=== PATIENT | female | born 1970 | race Caucasian/White ===

== ENCOUNTER 2017-06-20 11:25 | Emergency (ER) | payer OTHER ==
[~2017-06-20] VITALS: Ht 167.6 cm; Wt 73.5 kg
[~2017-06-20 11:25] MED LIST: ALPRAZOLAM1 M1 PO; AMBIEN CR12.5 MG PO; AMBIEN10 MG PO; AMBIEN5 MG PO; AMITRIPTYLINE H50 MG PO; ASPIRIN81 MG PO; ATORVASTATIN CA20 MG PO; CHANTIX0.5 MG PO; Calcium Carbonate PO; DOK100 MG PO; FLOVENT DISKUS50 MCG INH; Hydrochlorothiazide PO; LASIX20 MG PO; MELOXICAM7.5 MG PO; MOBIC7.5 MG PO; PANTOPRAZOLE SO40 MG PO; PEPCID20 MG; PEPCID20 MG PO; PROAIR HFA INH8.5 GM INH; RANEXA500 MG PO; SENOKOT8.6 MG PO; TUMS300 MG PO; ULTRAM 50MG50 MG PO; XANAX0.5 MG PO; ZOFRAN ODT4 MG PO; ZOFRAN ODT8 MG PO
== END 2017-06-20 12:20 | disposition short-term general hospital (02) ==
LOC: ER 11:25
DX: M54.9 Dorsalgia, unspecified (principal)

== ENCOUNTER 2018-04-04 16:10 | Emergency (ER) | payer OTHER ==
[~2018-04-04] VITALS: Ht 167.6 cm; Wt 70.3 kg
--- OUTSIDE RECORDS SUMMARY | 2018-04-04 16:12 | XMS REPORT ---
Author Author [facility] Address Unknown Phone Unavailable Care Team Providers Care Software Verification Engineer Name Role Phone DR KEMI GUTHRIE Unavailable Unavailable Problems This patient has no known problems. Allergies, Adverse Reactions, Alerts This patient has no known allergies or adverse reactions. Medications This patient has no known medications. Encounters Start Date/Time End Date/Time Encounter Type Admission Type Attending Clinicians Care Facility Care Department Encounter ID 2017-08-01 04:46:00 2017-08-01 07:50:00 Outpatient [facility] [id number]
[2018-04-04] MEDS ORDERED: IBUPROFEN 600 MG TAB PO STA (16:41)
--- NOTE | 2018-04-04 17:16 | Diagnostic Imaging Report ---
PELVIS AP 1-2 VIEWS HISTORY: Fall. Pelvic pain. COMPARISON: None available. FINDINGS: Bones: No acute displaced fracture. Osseous alignment is within normal limits. Joints: The joint spaces are well-maintained. Soft tissues: The soft tissues appear unremarkable. IMPRESSION: No acute radiographic abnormality. Signed by: DR. Willam Rodriguez MD on 04/04/2018 5:13 PM
--- NOTE | 2018-04-04 17:18 | Diagnostic Imaging Report ---
SHOULDER LEFT COMPLETE HISTORY: Fall, left shoulder pain.. COMPARISON: None available. FINDINGS: Internal and external rotation views. Bones: No acute displaced fracture. Osseous alignment is within normal limits. Joints: The joint spaces are well-maintained. Soft tissues: The soft tissues appear unremarkable. IMPRESSION: No acute radiographic abnormality. Signed by: DR. Willam Rodriguez MD on 04/04/2018 5:15 PM
--- NOTE | 2018-04-04 17:19 | Diagnostic Imaging Report ---
WRIST COMPLETE LEFT HISTORY: Fall, left wrist pain. COMPARISON: None available. FINDINGS: AP, lateral, and oblique views. Bones: No acute displaced fracture. Osseous alignment is within normal limits. Joints: The joint spaces are well-maintained. Soft tissues: The soft tissues appear unremarkable. IMPRESSION: No acute radiographic abnormality. Signed by: DR. Willam Rodriguez MD on 04/04/2018 5:16 PM
== END 2018-04-04 18:10 | disposition home or self-care (01) ==
LOC: ER 16:10
DX: S60.212A Contusion of left wrist, initial encounter (principal); S40.012A Contusion of left shoulder, initial encounter; W18.39XA Other fall on same level, initial encounter; Y93.01 Activity, walking, marching and hiking; Y92.008 Other place in unspecified non-institutional (private) residence as the place of occurrence of the external cause; M54.5 Low back pain; G89.29 Other chronic pain; I25.10 Atherosclerotic heart disease of native coronary artery without angina pectoris; K21.9 Gastro-esophageal reflux disease without esophagitis; E78.5 Hyperlipidemia, unspecified
CPT/HCPCS: 72170; 99283

== ENCOUNTER 2020-04-07 04:01 | Emergency (ER) | payer SELFPAY ==
[~2020-04-07] VITALS: Ht 167.6 cm; Wt 70.3 kg
[2020-04-07] MEDS ORDERED: ACETAMINOPHEN 325 MG TAB PO ONE (04:30)
--- NOTE | 2020-04-07 04:40 | Emergency Department Note ---
History of Present Illnes History of Present Illness Chief Complaint: General Medicine Complaints History of Present Illness This is a 49 year old female hx of brain injuries, migraine MCRAE c/o headache, right hip pain after a fall 2 days ago. She stripped and fell Monday, went to [facility] ER , has chest xray and cardiac work up and d/c form there. She came tonight because her head marks got worse., also c/o right hip pain. A table fell onot her head 2 years ago (in [facility]) caused her to become disable since. 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 Any updates have been documented here. Past Medical History Past Medical History: Hypertension, CAD, Seizure Disorder, Migraines, Hyperlipedemia, Chronic Back Pain Other Medical History: gestational DM GERD Anxiety high cholesterol "fluid around heart" Angina Seasonal allergies Past Surgical History: Cholecysctectomy, Hysterectomy, , Back Surgery Other Surgery: C Section Social History Smoking Cessation: Unknown if ever smoked TB Exposure/Symptoms: No Physically hurt or threatened: No Family History Family history of heart diseas: No Other Last Tetanus: Unknown Any Pre-Existing Lines (PICC,: No Review of Systems Review of Systems Constitutional: Reports weakness EENTM: Reports no symptoms Cardiovascular: Reports no symptoms Respiratory: Reports no symptoms Gastrointestinal: Reports no symptoms Genitourinary: Reports no symptoms Musculoskeletal: Reports as per HPI, Reports back pain, Reports muscle pain, Reports other (right himp pain, right knee pain) Integumentary: Reports no symptoms Neurological: Reports as per HPI, Reports headache Psychological: Reports no symptoms Endocrine: Reports no symptoms Hematological/Lymphatic: Reports no symptoms Physical Exam Related Data Allergies: Coded Allergies: Sulfa (Sulfonamide Antibiotics) (Verified Allergy, Intermediate, 07/02/19) metoprolol (Verified Allergy, Intermediate, 07/02/19) Vital signs reviewed: Yes Physical Exam CONSTITUTIONAL Constitutional: Present well-developed HENT HENT: Present normocephalic, Present atraumatic, Present oropharynx clear/moist, Present nose normal HENT L/R: Present left ext ear normal, Present right ext ear normal EYES Eyes: Reports PERRL, Reports conjunctivae normal NECK Neck: Present ROM normal PULMONARY Pulmonary: Present effort normal, Present breath sounds normal CARDIOVASCULAR Cardiovascular: Present regular rhythm, Present heart sounds normal, Present capillary refill normal, Present normal rate GASTROINTESTINAL Abdominal: Present soft, Present nontender, Present bowel sounds normal GENITOURINARY Genitourinary: Present exam deferred SKIN Skin: Present warm, Present dry MUSCULOSKELETAL Musculoskeletal: Present ROM normal, Present tenderness (right hip tender ) NEUROLOGICAL Neurological: Present alert, Present oriented x 3, Present no gross motor or sensory deficits PSYCHOLOGICAL Psychological: Present mood/affect normal, Present judgement normal Results Laboratory Lab results reviewed: Yes Laboratory comments no uti Imaging Imaging results reviewed: Yes Impressions no acute Assessment & Plan Medical Decision Making MDM sprain, fracture, dislocation, DJD Assessment & Plan Final Impression: (1) Acute pain due to trauma (2) Concussion (3) Hip injury Depart Disposition: HOME, SELF-long-term Meds Active Scripts Ondansetron (ZOFRAN ODT) 4 Mg Tab.rapdis, 1 TAB PO Q4-6H PRN, #12 Prov:ELIDA VO MD 03/08/16 Sennosides (SENOKOT) 8.6 Mg Tablet, 8.6 MG PO BID for 30 Days, TAB 2 Refills Prov:ELIDA VO MD 03/08/16 Docusate Sodium (DOK) 100 Mg Tablet, 100 MG PO BID for 30 Days, TAB 2 Refills Prov:ELIDA VO MD 03/08/16 Ondansetron (ZOFRAN ODT) 4 Mg Tab.rapdis, 4 MG PO Q4-6H PRN PRN for NAUSEA, #30 Prov:ELIDA VO MD 03/02/16 Tramadol Hcl* (ULTRAM 50MG*) 50 Mg Tab, 25 MG PO Q6H PRN for PAIN for 14 Days Prov:ELIDA VO MD 03/02/16 Meloxicam* (MOBIC*) 7.5 Mg Tablet, 7.5 MG PO DAILY for 14 Days, TAB Prov:ELIDA VO MD 03/02/16 [Calcium Carbonate] 500 MG CHEW No Conflict Check, 500 MG PO TID for 30 Days, 2 Refills Prov:ELIDA VO MD 03/02/16 Reported Medications Famotidine (PEPCID) 20 Mg Tablet, 20 MG BID, #60 TAB 03/06/16 Alprazolam (ALPRAZOLAM) 1 Mg Tab.rapdis, 1 MG PO TID for ANXIETY 03/06/16 Zolpidem Tartrate (AMBIEN) 5 Mg Tablet, 5 MG PO HS, #30 TAB 02/29/16 Ranolazine (RANEXA) 500 Mg Tabsr, 1000 MG PO BID, #60 TAB 02/29/16 Calcium Carbonate (TUMS) 300 Mg Tab.chew, 500 MG PO TID, #90 01/28/16 Atorvastatin Calcium (ATORVASTATIN CALCIUM) 20 Mg Tablet, 10 MG PO 2100, TAB 01/25/16 Aspirin (ASPIRIN) 81 Mg Tab.chew, 1 TAB PO DAILY 01/21/16 Pantoprazole Sodium* (PROTONIX) 40 Mg Tablet.dr, 40 MG PO DAILY, TAB 01/18/16 STANISLAV RASCON MD Apr 07, 2020 04:40
--- NOTE | 2020-04-07 05:33 | Diagnostic Imaging Report ---
Exam: Head CT without contrast History: Trauma, fall Comparison studies: Prior head CT of 03/06/2016 is unavailable on the PACS for the time of comparison. Technique: Axial images were obtained from the skull base to the vertex. Coronal and sagittal images reconstructed from the axial data. Dose modulation, iterative reconstruction, and/or weight based adjustment of the mA/kV was utilized to reduce the radiation dose to as low as reasonably achievable. Radiation dose: Total DLP: 969 mGy*cm. Estimated effective dose: DLP x 0.015 Intravenous contrast: None Findings: Scalp: No abnormalities. Bones: No fractures, blastic or lytic lesions. Brain sulci: Appropriate for age. Ventricles: Normal in size and configuration. No hydrocephalus. Extra-axial spaces: No masses, no fluid collection. Parenchyma: No mass, acute hemorrhage or acute or chronic cortical insults. A few subtle hypodensities in the supratentorial white matter are nonspecific but are most compatible with chronic microvascular ischemic changes. Sellar/suprasellar region: No abnormalities. Craniocervical junction: Patent foramen magnum. No Chiari one malformation. Middle ear cavities and mastoids: Clear. Included paranasal sinuses: Clear. IMPRESSION: 1. No acute abnormalities. 2. Mild chronic microvascular ischemic changes. Signed by: Dr. Tani Larsen M.D. on 04/07/2020 5:30 AM
--- NOTE | 2020-04-07 05:40 | Diagnostic Imaging Report ---
History: Trauma, fall Comparison studies: None Technique: Axial images were obtained through the cervical region. Coronal and sagittal images reconstructed from the axial data. Dose modulation, iterative reconstruction, and/or weight based adjustment of the mA/kV was utilized to reduce the radiation dose to as low as reasonably achievable. Intravenous contrast: None Findings: Atlantoaxial articulation: Intact. Alignment: Normal lordosis. No scoliosis. Cervicomedullary junction: No abnormalities. The foramen magnum is patent. Soft tissues: No gross acute abnormalities. Vertebrae: No fractures, infection or neoplasm. Degenerative changes: Multilevel anterior marginal osteophytes indent the prevertebral soft tissues, the largest of these is at C5-C6. Multilevel disc degeneration; mild from C2-C3 through C4-C5, moderate at C5-C6 and C6-C7 and mild at C7-T1. Moderate canal stenosis C5-C6 and at C6-C7 due to disc osteophyte complexes. Multilevel uncovertebral and facet arthrosis result in multilevel foraminal stenosis which is moderate on the right and mild left at C4-C5 and severe bilaterally at C5-C6 and at C6-C7. IMPRESSION: 1. No cervical spine fracture or subluxation. 2. Multilevel degenerative changes as described. 3. Ligament, spinal cord and or vascular abnormalities cannot be excluded on the basis of this examination Signed by: Dr. Tani Larsen M.D. on 04/07/2020 5:37 AM
[2020-04-07] MEDS ORDERED: ACETAMINOPHEN 325 MG TAB ONE (05:54)
[2020-04-07] MEDS ORDERED: IBUPROFEN 600 MG TAB ONE (05:54)
--- NOTE | 2020-04-07 06:21 | Diagnostic Imaging Report ---
EXAM: CT Pelvis WITHOUT contrast INDICATION: Fall, trauma COMPARISON: None. TECHNIQUE: Pelvis were scanned utilizing a multidetector helical scanner from the iliac crest to the pubic symphysis without administration of IV contrast. Coronal and sagittal reformations were obtained. Routine protocol was performed. IV CONTRAST: None ORAL CONTRAST: None COMPLICATIONS: None RADIATION DOSE: Total DLP: 419 mGy*cm Estimated effective dose: (DLP x 0.015 x size factor) mSv CTDIvol has been reviewed. It is below the limits set by the Radiation Protocol Committee (RPC). Dose modulation, iterative reconstruction, and/or weight based adjustment of the mA/kV was utilized to reduce the radiation dose to as low as reasonably achievable. FINDINGS: LINES and TUBES: None. GI TRACT: No abnormal distention, wall thickening, or evidence of bowel obstruction. PELVIC ORGANS/BLADDER: Hysterectomy. No adnexal masses. Urinary bladder unremarkable. LYMPH NODES: No lymphadenopathy. VESSELS: Unremarkable. PERITONEUM / RETROPERITONEUM: No free air or fluid. BONES: L5-S1 degenerative disc changes with height loss, posterior disc osteophytes and foraminal stenosis. SOFT TISSUES: Unremarkable. IMPRESSION: No acute traumatic abnormality. There is L5-S1 degenerative disc changes with disc height loss, posterior disc osteophytes and foraminal stenosis. Signed by: Braxton Anaya DO on 04/07/2020 6:18 AM
--- OUTSIDE RECORDS SUMMARY | 2020-04-07 09:35 | XMS REPORT | Clinical Summary ---
Author Author [facility] Organization [facility] Address Unknown Phone Unavailable Care Team Providers Care Equipment Service Associate Name Role Phone Jadiel Flores MD PCP Allergies Comments Active Allergy Reactions Severity Noted Date headache Metoprolol Other (See 08/05/2016 Comments) Sulfa (Sulfonamide 12/14/2018 Antibiotics) Medications End Date Status Medication Sig Dispensed Refills Start Date Active GABAPENTIN ORAL Take by 0 mouth. Active atorvastatin calcium Take by 0 (ATORVASTATIN ORAL) mouth. Active tizanidine HCl Take by 0 (TIZANIDINE ORAL) mouth. Active CLONAZEPAM ORAL Take by 0 mouth. Active sertraline HCl (ZOLOFT Take by 0 ORAL) mouth. 05/09/2019 traMADol (ULTRAM) 50 mg Take 1 tablet 20 tablet 0 tabletIndications: acute (50 mg total) 9 pain by mouth every 6 (six) hours as needed for severe pain for up to 5 days .Acute Pain. 03/03/2020 Discontinued (Patient Discha rge) ibuprofen (ADVIL) 600 MG Take 1 tablet 30 tablet 0 tablet (600 mg 0 total) by mouth every 6 (six) hours as needed for mild pain or moderate pain for up to 30 days. 04/02/2020 ibuprofen (ADVIL) 600 MG Take 1 tablet 20 tablet 0 tablet (600 mg 0 total) by mouth every 6 (six) hours as needed for mild pain or moderate pain for up to 30 days. Active Problems Not on file Encounters Care Team Description Date Type Specialty Ramses Reed MD Contusion of left knee, initial encounte r (Primary Dx); Contusion of right knee, initial encounter; Fall, initial encounter 03/03/2020 Emergency Emergency Medicine Mj Israel DO Fall, initial encounter (Primary Dx); Suspected Covid-19 Virus Infection; Contusion of rib on right side, initial encounter; Sprain of left ankle, unspecified ligament, initial encounter; Strain of left knee, initial encounter 02/02/2020 Emergency Emergency Medicine Travis Mcarthur MD Fall, initial encounter (Primary Dx); Injury of head, initial encounter; Acute pain of right shoulder; Acute pain of left knee; Acute left ankle pain 05/04/2019 Emergency Emergency Medicine after 04/07/2019 Surgical History Surgery Date Site/Laterality Comments HYSTERECTOMY CHOLECYSTECTOMY BACK SURGERY Medical History Medical History Date Comments Neuropathy High cholesterol Depression Myoclonus Social History Date Tobacco Use Types Packs/Day Years Used Current Every Day Smoker 0.25 Smokeless Tobacco: Never Used Drinks/Week oz/Week Comments Alcohol Use Never Alcohol Habits Answer Date Recorded How often do you have a drink containing alcohol? Never 12/14/2018 How many drinks containing alcohol do you have on No t asked a typical day when you are drinking? How often do you have six or more drinks on one Not asked occasion? Sex Assigned at Date Recorded Not on file Last Filed Vital Signs Reading Time Taken Comments Vital Sign 119/73 03/03/2020 9:00 AM CDT Blood Pressure 79 03/03/2020 9:00 AM CDT Pulse 36.7 C (98.1 F) 03/03/2020 8:58 AM CDT Temperature 18 03/03/2020 9:00 AM CDT Respiratory Rate 98% 03/03/2020 9:00 AM CDT Oxygen Saturation - - Inhaled Oxygen Concentration 72.6 kg (160 lb) 03/03/2020 8:58 AM CDT Weight 167.6 cm (5' 6") 03/03/2020 8:58 AM CDT Height 25.82 03/03/2020 8:58 AM CDT Body Mass Index Plan of Treatment Health Maintenance Due Date Last Done Comments CERVICAL CANCER SCREENING 1989 BREAST CANCER SCREENING 2018 COLONOSCOPY SCREENING 2018 SHINGLES VACCINES (#1) 2018 INFLUENZA VACCINE 01/18/2020 Procedures Comments Procedure Name Priority Date/Time Associated Diag nosis XR KNEE 4+ VW LEFT STAT 03/03/2020 9:40 AM CDT XR KNEE 4+ VW RIGHT STAT 03/03/2020 9:39 AM CDT XR KNEE 3 VW LEFT STAT 02/02/2020 6:57 AM CDT XR RIBS W PA CHEST RIGHT STAT 02/02/2020 6:57 AM CDT XR ANKLE 3+ VW LEFT STAT 02/02/2020 6:55 AM CDT COVID-19 QUALITATIVE PCR STAT 02/02/2020 5:[address] CERVICAL SPINE WO STAT 05/04/2019 CONTRAST 8:[address] HEAD WO CONTRAST STAT 05/04/2019 8:53 AM BAR TACKER XR KNEE 4+ VW LEFT STAT 05/04/2019 8:29 AM BAR TACKER XR TIBIA FIBULA 2 VW LEFT STAT 05/04/2019 7:29 AM BAR TACKER XR ANKLE 3+ VW LEFT STAT 05/04/2019 7:27 AM BAR TACKER XR SHOULDER 2+ VW RIGHT STAT 05/04/2019 7:27 AM BAR TACKER after 04/07/2019 Results * XR Knee 4+ Vw Left (03/03/2020 9:40 AM CDT) Only the most recent of 2 results within the time period is included. Specimen Narrative Performed At PROCEDURE: XR KNEE 4 VW LEFT [facility] CLINICAL HISTORY: fall COMPARISON: None. TECHNIQUE: Left knee, THREE views were obtained . FINDINGS: No fracture, dislocation, bone destruct ion, or periosteal reaction is demonstrated of the bones about the kne e. If the patient's symptoms persist or de teriorate, a follow-up radiograph in 10 days time is recommended, if clinically indicated. IMPRESSION: 1. No acute fracture or subluxation. 2. There is no acute bony abnormality. [id number] Procedure Note Hm Interface, Radiology Results Incoming - 03/03/2020 9:45 AM CDT PROCEDURE: XR KNEE 4 VW LEFT CLINICAL HISTORY: fall COMPARISON: None. TECHNIQUE: Left knee, THREE views were obtained. FINDINGS: No fracture, dislocation, bone destruction, or periosteal reaction is demonstrated of the bones about the knee. If the patient's symptoms persist or deteriorate, a follow-up radiograph in 10 days time is recommended, if clinically indicated. IMPRESSION: 1. No acute fracture or subluxation. 2. There is no acute bony abnormality. [id number] Performing Organization Address [facility] Code P michelle Number [facility] [address] [place] [address] * XR Knee 4+ Vw Right (03/03/2020 9:39 AM CDT) Specimen Narrative Performed At PROCEDURE: XR KNEE 4 VW RIGHT [facility] CLINICAL HISTORY: fall COMPARISON: None. TECHNIQUE: Right knee, THREE views were obtained . FINDINGS: No fracture, dislocation, bone destruct ion, or periosteal reaction is demonstrated of the bones about the kne e. Small osteophytes are seen along the florez perior aspect of the patella. If the patient's symptoms persist or de teriorate, a follow-up radiograph in 10 days time is recommended, if clinically indicated. IMPRESSION: 1. No acute fracture or subluxation. 2. There are minimal changes of osteoar thritis. [id number] Procedure Note Interface, Radiology Results Incoming - 03/03/2020 9:44 AM CDT PROCEDURE: XR KNEE 4 VW RIGHT CLINICAL HISTORY: fall COMPARISON: None. TECHNIQUE: Right knee, THREE views were obtained. FINDINGS: No fracture, dislocation, bone destruction, or periosteal reaction is demonstrated of the bones about the knee. Small osteophytes are seen along the superior aspect of the patella. If the patient's symptoms persist or deteriorate, a follow-up radiograph in 10 days time is recommended, if clinically indicated. IMPRESSION: 1. No acute fracture or subluxation. 2. There are minimal changes of osteoart hritis. [id number] Performing Organization Address [facility] Code P michelle Number [facility] [address] [place] [address] * XR Knee 3 Vw Left (02/02/2020 6:57 AM CDT) Specimen Narrative Performed At EXAMINATION: XR KNEE 3 VW LEFT [facility] CLINICAL HISTORY: Knee pain initial exam COMPARISON: None. IMPRESSION: 1.There is no evidence of left knee fra cture, dislocation, or joint effusion. Bone mineralization is normal. [facility] Procedure Note Interface, Radiology Results Incoming - 02/02/2020 7:01 AM CDT EXAMINATION: XR KNEE 3 VW LEFT CLINICAL HISTORY: Knee pain initial exam COMPARISON: None. IMPRESSION: 1.There is no evidence of left knee frac ture, dislocation, or joint effusion. Bone mineralization is normal. [facility] Organization Address [facility] P michelle Number [facility] [address] [place] [address] * XR Ribs W Pa Chest Right (02/02/2020 6:57 AM CDT) Specimen Narrative Performed At EXAMINATION: XR RIBS W PA CHEST RIGHT [facility] CLINICAL HISTORY: Rib pain fx suspe cted TECHNIQUE:Rib series COMPARISON: April 07, 2005 IMPRESSION: 1.Healed fractures with periosteal reac tion and callus formation involving the fifth sixth seventh and eighth right po sterior lateral ribs. 2.Lungs are clear. Heart size is normal .. 3.No pneumothorax. 4.Cholecystectomy. [facility] Procedure Note Interface, Radiology Results Incoming - 02/02/2020 7:03 AM CDT EXAMINATION: XR RIBS W PA CHEST RIGHT CLINICAL HISTORY: Rib pain fx suspected TECHNIQUE:Rib series COMPARISON: April 07, 2005 IMPRESSION: 1.Healed fractures with periosteal react ion and callus formation involving the fifth sixth seventh and eighth right posterior lateral ribs. 2.Lungs are clear. Heart size is normal. . 3.No pneumothorax. 4.Cholecystectomy. [facility] Organization Address [facility] P michelle Number [facility] [address] [place] [address] * XR Ankle 3+ Vw Left (02/02/2020 6:55 AM CDT) Only the most recent of 2 results within the time period is included. Specimen Narrative Performed At EXAMINATION: XR ANKLE 3 VW LEFT [facility] CLINICAL HISTORY: Ankle pain initia l exam COMPARISON: Left ankle radiographs IMPRESSION: There is no evidence of acute left ankl e fracture or dislocation. Mild widening of the medial clear space which may be seen with ligamentous injury. [id number] Procedure Note Interface, Radiology Results Incoming - 02/02/2020 7:01 AM CDT EXAMINATION: XR ANKLE 3 VW LEFT CLINICAL HISTORY: Ankle pain initial exam COMPARISON: Left ankle radiographs 05/04/2019 IMPRESSION: There is no evidence of acute left ankle fracture or dislocation. Mild widening of the medial clear space which may be seen with ligamentous injury. [id number] Performing Organization Address City/State/ZIP Code P michelle Number [facility] [address] [place] [address] * COVID-19 qualitative PCR (02/02/2020 5:05 AM CDT) Interpretation Negative results do not NDIAYE preclude 2019-nCoV infection [facility] and should not be used as the HOSPITAL sole basis for treatment or other patient management decisions. Negative results must be combined with clinical observations, patient history, and epidemiological information. COVID-19 Not-Detected Not-Detected [facility] qualitative PCR [facility] result [facility] COVID-19 See link below for PDF Lab [facility] qualitative PCR ReportComment: Case Number: [id number] [facility] Specimen Nasopharyngeal swab Performing Organization Address City/[facility]/ZIP Code P michelle Number [facility] DEPARTMENT OF [address] [place] [address] PATHOLOGY AND GENOMIC MEDICINE [facility] [address] [place] [address] [facility] * CT Cervical Spine Wo Contrast (05/04/2019 8:53 AM BAR TACKER) Specimen Narrative Performed At EXAMINATION: CT CERVICAL SPINE WO CONTRAST [facility] CLINICAL HISTORY: head trauma with midl ine neck tenderness COMPARISON: None TECHNIQUE: Axial noncontrast enhanced i mages of the cervical spine were obtained with coronal and sagittal reconstructed algorithms. CT imaging was performed with iterative reconstruction technique and/or automated exposure control to reduce radiation dose. FINDINGS: No fracture identified. Craniocervical junction is intact. Alignment is within normal limits. No suspicious osseous le paulina. No prevertebral edema or collection identified. There is no visualized mass lesion. Lung apices show no discrete lesions. Axial images through the disc spaces de monstrate the following: C1-C2: There is narrowing of the atlant oaxial interval with spurring. There is no significant stenosis. C2-C3: No significant posterior disc di sease, spinal canal or neural foraminal stenosis. C3-C4: No significant posterior disc di sease, spinal canal or neural foraminal stenosis. C4-C5: There is posterior spondylosis w ith minimal canal narrowing. There is moderate right and mild to moderate lef t foraminal narrowing. C5-C6: There is loss of disc height wit h posterior spondylosis and posterior protrusion results in moderate canal st enosis. Uncovertebral arthrosis and facet disease a results in severe bilateral f oraminal narrowing. Correlate for C6 radiculopathies. C6-C7: There is loss of disc height wit h posterior spondylosis and moderate canal narrowing. There is severe left a nd moderate severe right foraminal stenosis. C7-T1: No significant posterior disc di sease, spinal canal or neural foraminal stenosis. IMPRESSION: There is spondylosis with significant c anal and foraminal stenosis at C5-6 and C6-7 as detailed above. Correlate for a ssociated radiculopathies. There is no acute osseous abnormality. [facility]-[id number] Procedure Note [facility], Radiology Results Incoming - 05/04/2019 9:11 AM BAR TACKER EXAMINATION: CT CERVICAL SPINE WO CONTRAST CLINICAL HISTORY: head trauma with midline neck tenderness COMPARISON: None TECHNIQUE: Axial noncontrast enhanced images of the cervical spine were obtained with coronal and sagittal reconstructed algorithms. CT imaging was performed with iterative reconstruction technique and/or automated exposure control to reduce radiation dose. FINDINGS: No fracture identified. Craniocervical junction is intact. Alignment is within normal limits. No suspicious osseous lesion. No prevertebral edema or collection identified. There is no visualized mass lesion. Lung apices show no discrete lesions. Axial images through the disc spaces demonstrate the following: C1-C2: There is narrowing of the atlantoaxial interval with spurring. There is no significant stenosis. C2-C3: No significant posterior disc disease, spinal canal or neural foraminal stenosis. C3-C4: No significant posterior disc disease, spinal canal or neural foraminal stenosis. C4-C5: There is posterior spondylosis with minimal canal narrowing. There is moderate right and mild to moderate left foraminal narrowing. C5-C6: There is loss of disc height with posterior spondylosis and posterior protrusion results in moderate canal stenosis. Uncovertebral arthrosis and facet disease a results in severe bilateral foraminal narrowing. Correlate for C6 radiculopathies. C6-C7: There is loss of disc height with posterior spondylosis and moderate canal narrowing. There is severe left and moderate severe right foraminal stenosis. C7-T1: No significant posterior disc disease, spinal canal or neural foraminal stenosis. IMPRESSION: There is spondylosis with significant canal and foraminal stenosis at C5-6 and C6-7 as detailed above. Correlate for associated radiculopathies. There is no acute osseous abnormality. [facility]-[id number] Performing Organization Address City/State/ZIP Code P michelle Number [facility] [address] [place] [address] * CT Head Wo Contrast (05/04/2019 8:53 AM BAR TACKER) Specimen Narrative Performed At EXAMINATION: CT HEAD WO CONTRAST [facility] CLINICAL HISTORY: head trauma from fall COMPARISON: CT brain dated December 14 019 TECHNIQUE: Noncontrast enhanced images of the brain were obtained from the skull base to the vertex. Both soft tissue an d bone reconstruction algorithms were performed. CT imaging was performed w [facility] iterative reconstruction technique and/or automated exposure control to reduce radiation do se. FINDINGS: The brain parenchyma has no acute lesio n. The flores-white matter differentiation is preserved. No evidence of acute intr a or extra-axial hemorrhage, mass, mass effect or acute territorial infarction. There is no acute hydrocephalus. Basal cisterns are patent. There are atherosclerotic calcification s in the carotid siphons and vertebral arteries. Sulci and ventricles are prom inent from age-related volume loss. There are some lucencies in the white matter from chronic small vessel changes which are similar to the prior exam. No acute soft tissue hematoma or lacera tion. Paranasal sinuses shows no acute air-fl uid levels. Mastoid air cells are clear. No skull fractures or aggressive bony lesions. IMPRESSION: There are involutional changes as detai led above with no acute intracranial abnormality. No change from prior exam. [facility]-[id number] Procedure Note Interface, Radiology Results Incoming - 05/04/2019 9:06 AM BAR TACKER EXAMINATION: CT HEAD WO CONTRAST CLINICAL HISTORY: head trauma from fall COMPARISON: CT brain dated December 14, 2018 TECHNIQUE: Noncontrast enhanced images of the brain were obtained from the skull base to the vertex. Both soft tissue and bone reconstruction algorithms were performed. CT imaging was performed with iterative reconstruction technique and/or automated exposure control to reduce radiation dose. FINDINGS: The brain parenchyma has no acute lesion. The flores-white matter differentiation is preserved. No evidence of acute intra or extra-axial hemorrhage, mass, mass effect or acute territorial infarction. There is no acute hydrocephalus. Basal cisterns are patent. There are atherosclerotic calcifications in the carotid siphons and vertebral arteries. Sulci and ventricles are prominent from age-related volume loss. There are some lucencies in the white matter from chronic small vessel changes which are similar to the prior exam. No acute soft tissue hematoma or laceration. Paranasal sinuses shows no acute air-fluid levels. Mastoid air cells are clear. No skull fractures or aggressive bony lesions. IMPRESSION: There are involutional changes as detailed above with no acute intracranial abnormality. No change from prior exam. [facility]-[id number] Performing Organization Address [facility]/ZIP Code P michelle Number [facility] [address] [place] [address] * XR Tibia Fibula 2 Vw Left (05/04/2019 7:29 AM BAR TACKER) Specimen Narrative Performed At EXAMINATION: XR TIBIA FIBULA 2 VW LEFT [facility] CLINICAL HISTORY: Lower leg trauma fx suspected initial exam TECHNIQUE: 2 views of left lower l eg obtained. COMPARISON: None. IMPRESSION: No acute fracture or malalignment ident ified. [facility]-[id number] Procedure Note Interface, Radiology Results Incoming - 05/04/2019 7:35 AM BAR TACKER EXAMINATION: XR TIBIA FIBULA 2 VW LEFT CLINICAL HISTORY: Lower leg trauma fx suspected initial exam TECHNIQUE: 2 views of left lower leg obtained. COMPARISON: None. IMPRESSION: No acute fracture or malalignment identified. [id number] Performing Organization Address [facility] Code P michelle Number [facility] [address] [place] [address] * XR Shoulder 2+ Vw Right (05/04/2019 7:27 AM BAR TACKER) Specimen Narrative Performed At EXAMINATION: XR SHOULDER 2 VW RIGHT [facility] CLINICAL HISTORY: Shoulder pain ini tial exam COMPARISON: None. IMPRESSION: 1.There is no evidence of acute right s houlder fracture or dislocation. 2.The glenohumeral joint space is prese rved. 3.The soft tissues are unremarkable. [facility]-[id number] Dictated and approved by radiology resi dent/fellow: Alex Rogers M.D. I, Tani Hightower MD, personally reviewed the images and resident's/fellow's findings and agree with the final repor t. Procedure Note Interface, Radiology Results Incoming - 05/04/2019 7:40 AM BAR TACKER EXAMINATION: XR SHOULDER 2 VW RIGHT CLINICAL HISTORY: Shoulder pain initial exam COMPARISON: None. IMPRESSION: 1.There is no evidence of acute right sh oulder fracture or dislocation. 2.The glenohumeral joint space is preser brock. 3.The soft tissues are unremarkable. [facility]-[id number] Dictated and approved by residential mental health worker/fellow: Alex Rogers M.D. I, Tani Hightower MD, personally reviewed the images and resident's/fellow's findings and agree with the final report. 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
--- OUTSIDE RECORDS SUMMARY | 2020-04-07 09:35 | XMS REPORT | Clinical Summary ---
Author Author [facility] Organization [facility] Address Unknown Phone Unavailable Care Team Providers Care Merchandising Lead Name Role Phone Jadiel Flores MD PCP Allergies Comments Active Allergy Reactions Severity Noted Date headache Metoprolol Other 08/05/2016 Sulfa (Sulfonamide Medium 09/23/2014 Antibiotics) Sulfur Itching 06/25/2018 Medications End Date Status Medication Sig Dispensed Refills Start Date Active [place] Disabled Person Temporary 1 Each 0 PlacardIndications: disability. 9 Chronic post-traumatic headache, not intractable, Weakness Active Miscellaneous Medical by 1 Each 0 04/19 Supply MiscIndications: Misc.(Non-Guillermo 9 Pain of joint of left g; Combo ankle and foot Route) route Boot for ambulation and coordination left foot. Active atorvastatin (LIPITOR) 40 Take 1 tablet 90 tablet 3 mg tabletIndications: by mouth at 9 Coronary artery disease bedtime involving flandreau coronary nightly. artery of flandreau heart without angina pectoris Active prazosin (MINIPRESS) 1 mg Take 1 30 capsule 2 capsuleIndications: PTSD capsule by 9 (post-traumatic stress mouth at disorder) bedtime nightly. Active amitriptyline (ELAVIL) 25 Take 3 270 tablet 3 mg tabletIndications: tablets by 9 Headaches due to old head mouth at injury, Cervical bedtime radiculopathy nightly. Active cetirizine (ZYRTEC) 10 mg Take 1 tablet 30 tablet 2 tabletIndications: by mouth 9 Allergic rhinitis due to daily. pollen, unspecified seasonality Active acetaminophen (TYLENOL) Take 2 30 tablet 0 500 mg tabletIndications: tablets by 0 Fall mouth every 6 hours as needed for Pain. Active ibuprofen (MOTRIN) 600 mg Take 1 tablet 30 tablet 0 tabletIndications: Fall by mouth 0 every 8 hours as needed for Pain. Additional Information Patient not taking. Reported on 08/06/2019 2:19 PM Active Miscellaneous Medical by 1 Each 0 06/20 Supply MiscIndications: Misc.(Non-Guillermo 0 Fall g; Combo Route) route Walker for ambulation. Active Miscellaneous Medical by 1 Each 0 06/20 Supply MiscIndications: Misc.(Non-Guillermo 0 Fall g; Combo Route) route Oxygen tank at 2 liters with supplies to keep sats above 90 percent. Active naproxen (NAPROSYN) 500 Take 1 tablet 30 tablet 0 mg tabletIndications: Rib by mouth 0 pain every 12 hours. Active sertraline (ZOLOFT) 50 mg Take 1 tablet 30 tablet 2 tabletIndications: PTSD by mouth 0 (post-traumatic stress daily. disorder), MDD (major depressive disorder), recurrent severe, without psychosis Active traMADoL (ULTRAM) 50 mg Take 2 60 tablet 1 tabletIndications: Fall tablets by 0 mouth 3 times daily. Active mometasone (NASONEX) 50 1 [place] by 17 g 1 mcg/actuation nasal each nostril 0 sprayIndications: route daily. Allergic rhinitis due to pollen, unspecified seasonality Active amitriptyline (ELAVIL) 25 Take 3 90 tablet 4 mg tabletIndications: tablets by 0 Migraines mouth at bedtime nightly. Active SUMAtriptan (IMITREX) 50 Take 1 tablet 9 tablet 0 mg tabletIndications: by mouth at 0 Migraine without status onset of migrainosus, not headache. intractable, unspecified Repeat after migraine type 2 hours if needed. Maximum 200mg/24 hours.. Active gabapentin (NEURONTIN) Take 1 tablet 90 tablet 4 0 800 mg tabletIndications: by mouth 3 0 Migraines times daily. Active traZODone (DESYREL) 100 Take 1 tablet 30 tablet 1 mg tabletIndications: by mouth at 0 Insomnia due to medical bedtime condition nightly. Active clonazePAM (KLONOPIN) 1 Take 1 tablet 60 tablet 1 mg tabletIndications: by mouth 2 0 Myoclonus times daily as needed (for myoclonus). Active traMADoL (ULTRAM) 50 mg Take 1 tablet 60 tablet 0 tabletIndications: by mouth 2 0 Chronic midline low back times daily pain, unspecified whether as needed for sciatica present Pain. 05/01/2020 Active tiZANidine (ZANAFLEX) 4 Take 1 tablet 60 tablet 1 mg tabletIndications: by mouth 2 0 Spasm of muscle times daily as needed for up to 30 days for Muscle Spasms. 04/07/2020 Active predniSONE (DELTASONE) 20 Take 1 tablet 5 tablet 0 mg tabletIndications: by mouth 0 Viral infection daily for 5 days. 07/05/2019 Discontinued (Duplicate Orde r) [place] Disabled Person Permanent 1 Each 0 09/18 PlacardIndications: disability. 9 Chronic midline thoracic back pain 2019 Discontinued (Reorder) sertraline (ZOLOFT) 50 mg Take 1/2 tab 30 tablet 2 tabletIndications: PTSD by mouth 9 (post-traumatic stress daily x one disorder), MDD (major week then one depressive disorder), tab daily. recurrent severe, without psychosis 2019 Discontinued (Reorder) prazosin (MINIPRESS) 1 mg Take 1 30 capsule 2 capsuleIndications: PTSD capsule by 9 (post-traumatic stress mouth at disorder) bedtime nightly. 07/12/2019 Discontinued (Reorder) clonazePAM (KLONOPIN) 1 Take 1 tablet 60 tablet 3 mg tabletIndications: by mouth 3 9 Myoclonus times daily as needed for Anxiety. 2019 Discontinued (Reorder) clonazePAM (KLONOPIN) 1 Take 1 tablet 90 tablet 1 mg tabletIndications: by mouth 3 9 Myoclonus times daily as needed for Anxiety. 04/26/2019 Discontinued (Reorder) SUMAtriptan (IMITREX) 50 Take 1 tablet 9 tablet 0 mg tabletIndications: by mouth at 9 Migraine without status onset of migrainosus, not headache. intractable, unspecified Repeat after migraine type 2 hours if needed. Maximum 200mg/24 hours.. 2019 Discontinued (Reorder) atorvastatin (LIPITOR) 40 Take 1 tablet 90 tablet 3 mg tabletIndications: by mouth at 9 Coronary artery disease bedtime involving flandreau coronary nightly. artery of flandreau heart without angina pectoris 2019 Discontinued (Reorder) amitriptyline (ELAVIL) 25 Take 2 60 tablet 1 mg tabletIndications: tablets by 9 Migraine without status mouth at migrainosus, not bedtime intractable, unspecified nightly. migraine type 2019 Discontinued (Reorder) gabapentin (NEURONTIN) Take 1 tablet 90 tablet 3 1 800 mg tabletIndications: by mouth 3 9 Myoclonus times daily for 90 days. 2019 Discontinued (Reorder) tiZANidine (ZANAFLEX) 4 Take 1 tablet 90 tablet 1 mg tabletIndications: by mouth 3 9 Chronic midline thoracic times daily back pain for 30 days. 2019 Discontinued (Reorder) traMADol (ULTRAM) 50 mg Take 1 tablet 90 tablet 2 tabletIndications: by mouth 3 9 Chronic midline thoracic times daily back pain as needed for up to 30 days for Pain. 2019 Discontinued (Reorder) SUMAtriptan (IMITREX) 50 Take 1 tablet 9 tablet 0 mg tabletIndications: by mouth at 9 Migraine without status onset of migrainosus, not headache. intractable, unspecified Repeat after migraine type 2 hours if needed. Maximum 200mg/24 hours.. 05/13/2019 Discontinued (Dose adjustmen t) amitriptyline (ELAVIL) 25 Take 2 60 tablet 1 mg tabletIndications: tablets by 9 Migraine without status mouth at migrainosus, not bedtime intractable, unspecified nightly. migraine type 07/05/2019 Discontinued (Duplicate Orde r) clonazePAM (KLONOPIN) 1 Take 1 tablet 90 tablet 1 mg tabletIndications: by mouth 3 9 Myoclonus times daily as needed for Anxiety. 08/04/2019 gabapentin (NEURONTIN) Take 1 tablet 90 tablet 3 1 800 mg tabletIndications: by mouth 3 9 Myoclonus times daily for 90 days. 08/06/2019 Discontinued (Reorder) sertraline (ZOLOFT) 50 mg Take 1/2 tab 30 tablet 2 tabletIndications: PTSD by mouth 9 (post-traumatic stress daily for 1 disorder), MDD (major week AND THEN depressive disorder), take 1 tablet recurrent severe, without daily psychosis thereafter. 05/20/2019 Discontinued (Reorder) SUMAtriptan (IMITREX) 50 Take 1 tablet 9 tablet 0 mg tabletIndications: by mouth at 9 Migraine without status onset of migrainosus, not headache. intractable, unspecified Repeat after migraine type 2 hours if needed. Maximum 200mg/24 hours.. 07/06/2019 Discontinued (Reorder) tiZANidine (ZANAFLEX) 4 Take 1 tablet 90 tablet 1 mg tabletIndications: by mouth 3 9 Chronic midline thoracic times daily back pain for 30 days. 07/05/2019 Discontinued (Patient Dischswati rge) traMADol (ULTRAM) 50 mg Take 1 tablet 90 tablet 2 tabletIndications: by mouth 3 9 Chronic midline thoracic times daily back pain as needed for up to 30 days for Pain. 05/20/2019 Discontinued amitriptyline (ELAVIL) 75 Take 1 tablet 30 tablet 5 mg tabletIndications: by mouth at 9 Migraines bedtime nightly for 180 days. 05/20/2019 Discontinued (Reorder) amitriptyline (ELAVIL) 75 Take 1 tablet 30 tablet 5 mg tabletIndications: by mouth at 9 Migraines bedtime nightly for 180 days. 07/10/2019 Discontinued (Reorder) SUMAtriptan (IMITREX) 50 Take 1 tablet 9 tablet 0 mg tabletIndications: by mouth at 9 Migraine without status onset of migrainosus, not headache. intractable, unspecified Repeat after migraine type 2 hours if needed. Maximum 200mg/24 hours.. 09/26/2019 Discontinued (Reorder) mometasone (NASONEX) 50 1 [place] by 17 g 1 mcg/actuation nasal each nostril 9 sprayIndications: route daily. Allergic rhinitis due to pollen, unspecified seasonality 07/05/2019 Discontinued (Patient Dischswati rge) oseltamivir (TAMIFLU) 75 Take 1 10 capsule 0 0 mg capsuleIndications: capsule by 0 Influenza mouth 2 times daily for 5 days. 07/12/2019 Discontinued (Reorder) traMADol (ULTRAM) 50 mg Take 2 30 tablet 0 tabletIndications: Fall tablets by 0 mouth every 6 hours as needed for Pain. 07/12/2019 lidocaine (LIDODERM) 5 % Apply 1 Patch 7 Patch 0 patchIndications: Fall to skin as 0 directed every 24 hours for 7 days Leave patch(es) on for up to 12 hours, then 12 hours off.. 08/04/2019 docusate sodium (COLACE) Take 1 10 capsule 0 0 100 mg capsule by 0 capsuleIndications: Fall mouth 2 times daily for 30 days. 09/04/2019 Discontinued (Reorder) tiZANidine (ZANAFLEX) 4 Take 1 tablet 90 tablet 1 mg tabletIndications: by mouth 3 0 Chronic midline thoracic times daily back pain for 30 days. 09/04/2019 Discontinued (Reorder) SUMAtriptan (IMITREX) 50 Take 1 tablet 9 tablet 0 mg tabletIndications: by mouth at 0 Migraine without status onset of migrainosus, not headache. intractable, unspecified Repeat after migraine type 2 hours if needed. Maximum 200mg/24 hours.. 09/04/2019 Discontinued (Reorder) traMADol (ULTRAM) 50 mg Take 2 60 tablet 1 tabletIndications: Fall tablets by 0 mouth 3 times daily. 07/12/2019 Discontinued (Reorder) clonazePAM (KLONOPIN) 1 Take 1 tablet 60 tablet 3 mg tabletIndications: by mouth 3 0 Myoclonus times daily as needed for Anxiety. 10/28/2019 Discontinued clonazePAM (KLONOPIN) 1 Take 1 tablet 60 tablet 3 mg tabletIndications: by mouth 3 0 Myoclonus times daily as needed (for myoclonus). 01/19/2020 Discontinued (Reorder) gabapentin (NEURONTIN) Take 1 tablet 90 tablet 4 0 800 mg tabletIndications: by mouth 3 0 Migraines times daily. 11/15/2019 Discontinued (Reorder) amitriptyline (ELAVIL) 25 Take 3 90 tablet 4 mg tabletIndications: tablets by 0 Migraines mouth at bedtime nightly. 01/20/2020 Discontinued (Error) acetaminophen-codeine Take 1 tablet 12 tablet 0 (TYLENOL/CODEINE #3) by mouth 0 300-30 mg per every 4 hours tabletIndications: Rib as needed for pain Pain. 12/08/2019 tiZANidine (ZANAFLEX) 4 Take 1 tablet 90 tablet 1 mg tabletIndications: by mouth 3 0 Chronic midline thoracic times daily back pain for 30 days. 10/30/2019 Discontinued (Reorder) SUMAtriptan (IMITREX) 50 Take 1 tablet 9 tablet 0 mg tabletIndications: by mouth at 0 Migraine without status onset of migrainosus, not headache. intractable, unspecified Repeat after migraine type 2 hours if needed. Maximum 200mg/24 hours.. 11/06/2019 Discontinued (Reorder) traMADoL (ULTRAM) 50 mg Take 2 40 tablet 0 tabletIndications: tablets by 0 Chronic midline low back mouth 2 times pain, unspecified whether daily as sciatica present needed for Pain. 11/06/2019 Discontinued (Reorder) tiZANidine (ZANAFLEX) 4 Take 1 tablet 30 tablet 0 mg tabletIndications: by mouth 0 Chronic midline low back every 6 hours pain, unspecified whether as needed for sciatica present up to 10 days for Muscle Spasms. 11/06/2019 Discontinued (Reorder) clonazePAM (KLONOPIN) 1 Take 1 tablet 60 tablet 3 mg tabletIndications: by mouth 3 0 Myoclonus times daily as needed (for myoclonus). 12/10/2019 Discontinued (Reorder) SUMAtriptan (IMITREX) 50 Take 1 tablet 9 tablet 0 mg tabletIndications: by mouth at 0 Migraine without status onset of migrainosus, not headache. intractable, unspecified Repeat after migraine type 2 hours if needed. Maximum 200mg/24 hours.. 12/11/2019 Discontinued (Reorder) tiZANidine (ZANAFLEX) 4 Take 1 tablet 90 tablet 0 mg tabletIndications: by mouth 2 0 Chronic midline low back times daily pain, unspecified whether as needed for sciatica present up to 10 days for Muscle Spasms. 11/29/2019 Discontinued traMADoL (ULTRAM) 50 mg Take 2 90 tablet 0 tabletIndications: tablets by 0 Chronic midline low back mouth 2 times pain, unspecified whether daily as sciatica present needed for Pain. 01/19/2020 Discontinued (Reorder) clonazePAM (KLONOPIN) 1 Take 1 tablet 90 tablet 1 mg tabletIndications: by mouth 3 0 Myoclonus times daily as needed (for myoclonus). 12/11/2019 Discontinued (Reorder) traMADoL (ULTRAM) 50 mg Take 2 90 tablet 0 tabletIndications: tablets by 0 Chronic midline low back mouth 2 times pain, unspecified whether daily as sciatica present needed for Pain. 12/21/2019 tiZANidine (ZANAFLEX) 4 Take 1 tablet 90 tablet 0 mg tabletIndications: by mouth 2 0 Chronic midline low back times daily pain, unspecified whether as needed for sciatica present up to 10 days for Muscle Spasms. 01/19/2020 Discontinued (Reorder) traMADoL (ULTRAM) 50 mg Take 2 90 tablet 0 tabletIndications: tablets by 0 Chronic midline low back mouth 2 times pain, unspecified whether daily as sciatica present needed for Pain. 12/23/2019 doxycycline monohydrate Take 1 20 capsule 0 (MONODOX) 100 mg capsule by 0 capsuleIndications: Acute mouth 2 times upper respiratory daily for 10 infection days. 01/02/2020 Discontinued (Reorder) traZODone (DESYREL) 100 Take 1 tablet 30 tablet 1 mg tabletIndications: by mouth at 0 Insomnia due to medical bedtime condition nightly. 02/26/2020 Discontinued (Reorder) traZODone (DESYREL) 100 Take 1 tablet 30 tablet 1 mg tabletIndications: by mouth at 0 Insomnia due to medical bedtime condition nightly. 03/16/2020 Discontinued (Reorder) clonazePAM (KLONOPIN) 1 Take 1 tablet 60 tablet 1 mg tabletIndications: by mouth 2 0 Myoclonus times daily as needed (for myoclonus). 02/12/2020 Discontinued (Reorder) traMADoL (ULTRAM) 50 mg Take 1 tablet 60 tablet 0 tabletIndications: by mouth 2 0 Chronic midline low back times daily pain, unspecified whether as needed for sciatica present Pain. 02/08/2020 tiZANidine (ZANAFLEX) 4 Take 1 tablet 30 tablet 1 mg tabletIndications: by mouth 3 0 Spasm of muscle times daily for 10 days. 02/12/2020 Discontinued (Reorder) benzonatate (TESSALON Take 1 20 capsule 0 01/17 PERLES) 100 mg capsule by 0 capsuleIndications: Cough mouth 3 times daily as needed for up to 7 days for Cough. 03/16/2020 Discontinued (Reorder) traMADoL (ULTRAM) 50 mg Take 1 tablet 60 tablet 0 tabletIndications: by mouth 2 0 Chronic midline low back times daily pain, unspecified whether as needed for sciatica present Pain. 03/03/2020 benzonatate (TESSALON Take 1 20 capsule 0 PERLES) 100 mg capsule by 0 capsuleIndications: Cough mouth 3 times daily as needed for up to 7 days for Cough. 04/02/2020 doxycycline monohydrate Take 1 20 capsule 0 (MONODOX) 100 mg capsule by 0 capsuleIndications: Cough mouth 2 times daily for 10 days. Status Hospital, Clinic, or Ordered Dose Route Frequency Start End Date Other Facility Date Administered Medication Ended methylPREDNISolone sodium 40 mg IM ONCE 10/14/19 succinate (SOLU-MEDROL) 20 0 injection 40 mgIndications: Chronic midline low back pain, unspecified whether sciatica present Active Problems Problem Noted Date Fall 07/02/2019 Right sided weakness 06/25/2019 Impaired functional mobility, balance, gait, and endu nicky 11/02/2018 Decreased strength 11/02/2018 Abnormal MRI, cervical spine 10/05/2018 Other chest pain 10/03/2018 Elevated troponin 10/02/2018 Coronary artery disease involving flandreau coronary art ernesto of flandreau heart 10/02/2018 Headaches due to old head injury 05/20/2018 Unstable angina Numbness and tingling of right arm Cervical radiculopathy Chronic bilateral low back pain Pneumothorax, traumatic Encounters Care Team Description Date Type Specialty Taty Edwards RN 04/03/2020 Orders Only Jadiel Flores MD Colon cancer screening (Primary Dx); COVID-19; Viral infection; Effusion of knee, unspecified laterality 04/02/2020 Telemedicine [facility] Markell Means MD 04/02/2020 E-Consult Orthopedics Adonis, Alyson Hewitt MD 04/02/2020 E-Visit [facility] Doctor, [facility] 04/02/2020 E-Visit Jadiel Flores MD Medications 03/16/2020 Refill Family Practice Jadiel Flores MD Cough (Primary Dx) 03/11/2020 Telephonic Family Practice Encounter Jadiel Flores MD Medications 02/26/2020 Refill [facility] Jadiel Flores MD 02/19/2020 Orders Only [facility] Jadiel Flores MD Medications 02/12/2020 Refill [facility] Selene Fernandez MD 02/05/2020 Orders Only Neurology Jadiel Flores MD Canceled (Provider Request) 01/31/2020 Telephonic Family Practice Encounter Jadiel Flores MD Medications 01/29/2020 Orders Only [facility] Jadiel Flores MD Screening cholesterol level (Primary Dx) 01/20/2020 Telemedicine [facility] Selene Fernandez MD Medications 01/19/2020 Refill Neurology Jadiel Flores MD Medications 01/19/2020 Refill [facility] Jadiel Flores MD Medications 01/02/2020 Refill [facility] Selene Fernandez MD 12/25/2019 Orders Only Neurology Jadiel Flores MD Allergic state, initial encounter (Prima ry Dx); Chronic midline low back pain, unspecified whether sciatica present 12/11/2019 Telephonic Family Practice Encounter Jadiel Flores MD Medications 12/10/2019 Refill Family Practice Jadiel Flores MD Medications 11/29/2019 Refill [facility] Selene Fernandez MD Medications 11/15/2019 Refill Neurology Jadiel Flores MD Medications 11/11/2019 Refill Family Practice Jadiel Flores MD Chronic midline low back pain, unspecifi ed whether sciatica present; Myoclonus 11/06/2019 Telephonic Family Practice Encounter Jadiel Flores MD Medications 10/30/2019 Refill Family Practice Jadiel Flores MD Medications 10/28/2019 Refill [facility] Jadiel Flores MD Allergic rhinitis due to pollen, unspeci fied seasonality (Primary Dx); Other screening mammogram 10/15/2019 Office Visit [facility] Jadiel Flores MD Chronic midline low back pain, unspecifi ed whether sciatica present (Primary Dx) 10/14/2019 Telephonic Family Practice Encounter Jacque Greer, Psychologist Canceled (Provider Request) 10/09/2019 Telephonic Physical Medicine a nd Encounter Rehab Jadiel Flores MD Medications 09/26/2019 Refill [facility] Tanya Yi, DAVEY 09/17/2019 Nurse Triage Jadiel Flores MD Medications 09/04/2019 Refill [facility] Jadiel Flores MD Medications 08/12/2019 Refill [facility] Jadiel Flores MD Screening mammogram, encounter for (Prim latoya Dx) 08/09/2019 Office Visit Family [facility] Damien Hdz MD PTSD (post-traumatic stress disorder); MDD (major depressive disorder), recurrent severe, without psychosis 08/06/2019 Office Visit Psychiatry Levon Marquez MD Rib pain (Primary Dx); Fall 08/01/2019 Emergency Emergency Medicine Dinesh Hancock MD Sharp, Lydia J, MD Conversion disorder with mixed symptoms, persistent, with psychological stressor (Primary Dx); Migraines 07/16/2019 Office Visit Neurology Selene Fernandez MD 07/16/2019 Orders Only Neurology Jadiel Flores MD Other screening mammogram (Primary Dx); Fall; Myoclonus 07/12/2019 Office Visit Family Practice Chrystal Singh, RN 07/12/2019 Clinical Case Social Work Mgt Jadiel Flores MD Medications 07/10/2019 Refill [facility] Shira Bright RN 07/09/2019 Nurse Triage Marcos Woodson LMSW 07/09/2019 Clinical Case Mgt Jadiel Flores MD Medications 07/06/2019 Refill [facility] Sona Mccurdy MD Hoffman, Marcus K, MD Fall (Primary Dx); Other chest pain; Fall from one level to another as cause of accidental injury; Traumatic pneumothorax, initial encounter; Unstable angina 07/02/2019 Hospital - Encounter 07/05/2019 07/02/2019 Intake Jadiel Flores MD 06/28/2019 Orders Only [facility] Jadiel Flores MD 06/28/2019 Orders Only [facility] Jadiel Flores MD Landry, Tahnee Marie, PT Right sided weakness (Primary Dx); Impaired functional mobility, balance, gait, and endurance 06/25/2019 Therapy Physical Therapy Jadiel Flores MD Allergic rhinitis due to pollen, unspeci fied seasonality (Primary Dx); Other screening mammogram 06/10/2019 Office Visit [facility] Jadiel Flores MD Medications 05/20/2019 Refill [facility] Selene Fernandez MD Medications 05/20/2019 Orders Only Neurology Selene Fernandez MD Medications 05/20/2019 Refill Neurology Selene Fernandez MD Migraines (Primary Dx); Right hand weakness; Decreased sensation of hand and upper extremity; Conversion disorder with mixed symptoms, persistent, with psychological stressor 05/13/2019 Office Visit Neurology Selene Fernandez MD 05/13/2019 Orders Only Neurology Jadiel Flores MD 2019 Ancillary Radiology Procedure Jadiel Flores MD Pain of joint of left ankle and foot (Pr imary Dx); Screening for colon cancer; Other screening mammogram; Migraine without status migrainosus, not intractable, unspecified migraine type; Coronary artery disease involving flandreau coronary artery of flandreau heart without angina pectoris; Myoclonus; PTSD (post-traumatic stress disorder); MDD (major depressive disorder), recurrent severe, without psychosis; Chronic midline thoracic back pain; Breast cancer screening; Colon cancer screening 2019 Office Visit [facility] Jadiel Flores MD 2019 Orders Only [facility] Tiff Scott 2019 Clinical Case Social Work Mgt Jadiel lFores MD Medications 04/26/2019 Refill [facility] Razmandi, Alethea, OD Peripheral visual field defect of both e yes (Primary Dx) 04/16/2019 Office Visit Ophthalmology after 04/07/2019 Immunizations Name Administration Dates Next Due Influenza, Injectable, 07/20/2017, 05/09/2016 Quadrivalent, Preservative Free Influenza, 06/25/2018 Vaccine<FLUCELVAX>(Multi- Dose) PPV 23 (Pneumococcal 07/05/2019 Polysaccharide 23 Valent) Tdap (Tetanus Toxoid, 06/25/2018 (Deferred: Camila nt already had this Reduced Diphtheria Toxoid immunization - Per patient received in 2015), And Acellular Pertussis, 08/24/2016 Absorbed) Zoster Vaccine (Shingrix) 06/25/2018 (Deferred: Vacc ine Unavailable) Family History Medical History Relation Name Comments Other Brother Non-Hodkins Lymphom a Cancer Father Cancer Mother Stroke Paternal Grandfather Arthritis Sister Relation Name Status Comments Brother Alive total of 2 Father Cancer of spine, vikki ng cancer Mother Malgnant melanomia Paternal Grandfather Sister Alive 2 sisters Social History Date Tobacco Use Types Packs/Day Years Used Current Every Day Smoker Cigarettes 0.25 Smokeless Tobacco: Never Used Tobacco Cessation: Ready to Quit: No; Co unseling Given: No Comments: trying Drinks/Week oz/Week Comments Alcohol Use socially Yes Alcohol Habits Answer Date Recorded How often do you have a drink containing alcohol? 2-4 time s a month 06/25/2018 How many drinks containing alcohol do you have on 3 or 4 06/25/2018 a typical day when you are drinking? How often do you have six or more drinks on one Never 06/25/2018 occasion? Food Insecurity Answer Date Recorded Within the past 12 months, you worried that your Never kendall e 06/25/2018 food would run out before you got money to buy more. Within the past 12 months, the food you bought Never true 06/25/2018 just didn't last and you didn't have mo fausto to get more. Sex Assigned at Date Recorded Not on file Industry Job Start Date Occupation Not on file Not on file Not on file Travel End Travel History Travel Start No recent travel history available. Date Recorded COVID-19 Exposure Response 03/30/2020 4:40 PM CDT In the last month, have you been in contact with No / Unsure someone who was confirmed or suspected to have Coronavirus / COVID-19? Last Filed Vital Signs Reading Time Taken Comments Vital Sign 95/76 10/15/2019 9:20 AM CDT Blood Pressure 104 10/15/2019 9:20 AM CDT Pulse 37.3 C (99.1 F) 10/15/2019 9:20 AM CDT Temperature 20 10/15/2019 9:20 AM CDT Respiratory Rate 100% 10/15/2019 9:20 AM CDT Oxygen Saturation - - Inhaled Oxygen Concentration 74.4 kg (164 lb) 10/15/2019 9:20 AM CDT Weight 167.6 cm (5' 6") 10/15/2019 9:20 AM CDT Height 26.47 10/15/2019 9:20 AM CDT Body Mass Index Plan of Treatment Care Team Description Date Type Specialty Jadiel Flores MD [address] [place] [id number] [phone] 04/30/2020 Ancillary Radiology Procedure flu shot 04/30/2020 Office Visit Health Maintenance Due Date Last Done Comments Breast Cancer Scrn 2008 (Yearly) IMM Influenza Seasonal 03/19/2020 06/25/2018, Oct to August (>/= 19 yrs) 07/20/2017, 05/09/2016 Colorectal Cancer Scrn 05/23/2020 05/23/2019, Annual (FIT/FOBT) Age 50 06/18/2018 to 75 CORONARY ARTERY DISEASE 02/16/2021 02/17/2020, AGE 18 AND UP 06/26/2018 Cervical Cancer Scrn (3 09/30/2021 09/30/2018, Yrs) 09/30/2018, 08/01/2018 Goals Goal Patient Associated Recent Progress Patient-Stat Aut hor Goal Type Problems ed? Exercise Regularly Self No jazmin Flores MD Procedures Comments Procedure Name Priority Date/Time Associated Diag nosis MYCHART TEMPERATURE Routine 04/04/2020 Suspected COVID-19 virus FLOWSHEET 2:00 AM CDT infection MYHEALTH COVID-19 HOME Routine 04/03/2020 Suspect ed COVID-19 virus MONITORING PROGRAM 12:49 PM CDT infection HEMOCCULT KIT FOR Routine 04/02/2020 Colon cancer screening SPECIMEN COLLECTION AT 7:08 AM CDT HOME HEMOCCULT KIT FOR Routine 02/20/2020 Colon cancer screening SPECIMEN COLLECTION AT 12:41 PM CDT HOME UREA NITROGEN/CREATININE Routine 02/17/2020 Spell of abnormal 10:37 AM CDT behavior LIPID PROFILE Routine 02/17/2020 Screening valentin sterol 10:37 AM CDT level CREATININE Routine 01/10/2020 Spell of abnorm al 1:21 PM CDT behavior CREATININE POC Routine 08/01/2019 4:52 PM SOAPING DEPARTMENT SUPERVISOR BMP POC Routine 08/01/2019 4:52 PM SOAPING DEPARTMENT SUPERVISOR TROPONIN I POC Routine 08/01/2019 4:51 PM SOAPING DEPARTMENT SUPERVISOR XRAY CHEST 2 VIEWS STAT 08/01/2019 Rib pain 4:24 PM SOAPING DEPARTMENT SUPERVISOR ECHG EKG PROC 12 LEAD Routine 08/01/2019 EKG; TRACING ONLY 3:46 PM SOAPING DEPARTMENT SUPERVISOR CBC Routine 07/05/2019 3:42 AM SOAPING DEPARTMENT SUPERVISOR PHOSPHORUS Routine 07/05/2019 3:42 AM SOAPING DEPARTMENT SUPERVISOR MAGNESIUM Routine 07/05/2019 3:42 AM SOAPING DEPARTMENT SUPERVISOR BASIC METABOLIC PANEL Routine 07/05/2019 3:42 AM SOAPING DEPARTMENT SUPERVISOR CBC/DIFF Routine 07/05/2019 3:42 AM SOAPING DEPARTMENT SUPERVISOR XRAY CHEST 1 VIEW STAT 07/04/2019 Fall 4:26 PM SOAPING DEPARTMENT SUPERVISOR ECHG EKG PROC 12 LEAD Routine 07/04/2019 EKG; TRACING ONLY 3:59 PM SOAPING DEPARTMENT SUPERVISOR TROPONIN I STAT 07/04/2019 3:21 PM SOAPING DEPARTMENT SUPERVISOR CK, TOTAL STAT 07/04/2019 3:21 PM SOAPING DEPARTMENT SUPERVISOR CONSULT CLINICAL CASE Routine 07/04/2019 MANAGEMENT (RN/SW) 11:58 AM SOAPING DEPARTMENT SUPERVISOR CBC Routine 07/04/2019 4:45 AM SOAPING DEPARTMENT SUPERVISOR PHOSPHORUS Routine 07/04/2019 4:45 AM SOAPING DEPARTMENT SUPERVISOR MAGNESIUM Routine 07/04/2019 4:45 AM SOAPING DEPARTMENT SUPERVISOR BASIC METABOLIC PANEL Routine 07/04/2019 4:45 AM SOAPING DEPARTMENT SUPERVISOR CBC/DIFF Routine 07/04/2019 4:45 AM SOAPING DEPARTMENT SUPERVISOR TROPONIN I STAT 07/03/2019 5:37 PM SOAPING DEPARTMENT SUPERVISOR CBC STAT 07/03/2019 5:37 PM SOAPING DEPARTMENT SUPERVISOR CBC/DIFF STAT 07/03/2019 5:37 PM SOAPING DEPARTMENT SUPERVISOR XRAY CHEST 1 VIEW STAT 07/03/2019 Fall 5:25 PM SOAPING DEPARTMENT SUPERVISOR CONSULT CLINICAL CASE Routine 07/03/2019 MANAGEMENT (RN/SW) 3:43 PM SOAPING DEPARTMENT SUPERVISOR CONSULT CLINICAL CASE Routine 07/03/2019 MANAGEMENT (RN/SW) 11:12 AM SOAPING DEPARTMENT SUPERVISOR XRAY FOREARM 2 VIEWS MIN STAT 07/03/2019 Fall 9:44 AM SOAPING DEPARTMENT SUPERVISOR XRAY SHOULDER 2 VIEWS MIN STAT 07/03/2019 Fall 9:44 AM SOAPING DEPARTMENT SUPERVISOR XRAY HUMERUS 2 VIEWS MIN STAT 07/03/2019 Fall 9:44 AM SOAPING DEPARTMENT SUPERVISOR IP CONSULT WITH INSIGHT Routine 07/03/2019 8:58 AM SOAPING DEPARTMENT SUPERVISOR ECHG NON-INVASIVE PROC STAT 07/03/2019 ECHOCARDIOGRAM 2-D W/O 8:39 AM SOAPING DEPARTMENT SUPERVISOR CONTRAST (PROSOLVE) INFUSION PUMP Routine 07/03/2019 8:05 AM SOAPING DEPARTMENT SUPERVISOR XRAY CHEST 1 VIEW STAT 07/03/2019 Fall 6:47 AM SOAPING DEPARTMENT SUPERVISOR TROPONIN I Routine 07/03/2019 6:28 AM SOAPING DEPARTMENT SUPERVISOR CBC Routine 07/03/2019 4:01 AM SOAPING DEPARTMENT SUPERVISOR PHOSPHORUS Routine 07/03/2019 4:01 AM SOAPING DEPARTMENT SUPERVISOR MAGNESIUM Routine 07/03/2019 4:01 AM SOAPING DEPARTMENT SUPERVISOR BASIC METABOLIC PANEL Routine 07/03/2019 4:01 AM SOAPING DEPARTMENT SUPERVISOR CBC/DIFF Routine 07/03/2019 4:01 AM SOAPING DEPARTMENT SUPERVISOR CT ABDOMEN AND PELVIS STAT 07/02/2019 Fall fro m one level to CONTRAST 1:16 PM SOAPING DEPARTMENT SUPERVISOR another as cause of accidental injury CT C-SPINE W/O CONTRAST STAT 07/02/2019 Fall f rom one level to 1:16 PM SOAPING DEPARTMENT SUPERVISOR another as cause of accidental injury CT CHEST W CONTRAST STAT 07/02/2019 Fall from one level to 1:16 PM SOAPING DEPARTMENT SUPERVISOR another as cause of accidental injury CT HEAD W/O CONTRAST STAT 07/02/2019 Fall from one level to 1:16 PM SOAPING DEPARTMENT SUPERVISOR another as cause of accidental injury XRAY CHEST 1 VIEW STAT 07/02/2019 Fall from on e level to 12:42 PM SOAPING DEPARTMENT SUPERVISOR another as cause of accidental injury FECAL OCCULT BLOOD Routine 05/23/2019 Colon cance r screening 3:31 PM SOAPING DEPARTMENT SUPERVISOR HEMOCCULT KIT FOR Routine 05/07/2019 Colon cancer screening SPECIMEN COLLECTION AT 5:27 PM SOAPING DEPARTMENT SUPERVISOR HOME XRAY ANKLE 3 VIEW MIN Routine 2019 Pain of joint of left 11:26 AM SOAPING DEPARTMENT SUPERVISOR ankle and foot HEMOCCULT KIT FOR Routine 2019 Screening fo r colon SPECIMEN COLLECTION AT 11:14 AM SOAPING DEPARTMENT SUPERVISOR cancer HOME after 04/07/2019 Results * Lipid Profile (02/17/2020 10:37 AM CDT) Cholesterol 245.0 (H) <=200.0 mg/dL [facility] Triglyceride 255 (H) <150 mg/dL [facility] HDL 42.0 See Reference Range [facility] Narrative. mg/dL LABORATORY LDL 152 (H) <100 mg/dL [facility] Comment: LABORAT[facility] Optimal: < 100.0 mg/dL Near Optimal: 120-129 mg/dL Borderline: 130-159 mg/dL High: 160-189 mg/dL Very High: >=190 mg/dL Patient Yes [facility] Fasting? LABORATORY Specimen Blood Performing Organization Address City/State/Zipcode Ph one Number [facility] [address] [place] [address] * BUN/CREATININE (02/17/2020 10:37 AM CDT) Urea Nitrogen 15.0 7.0 - 25.0 mg/dL [facility] Creatinine 0.7 0.6 - 1.2 mg/dL [facility] GFR, Estimated 88 (L) >=90 mL/min/1.73 m2 [facility] Specimen Blood Performing Organization Address [facility] one Number [facility] [address] [place] [address] * Creatinine (01/10/2020 1:21 PM CDT) [facility] Creatinine 0.7 0.6 - 1.2 mg/dL [facility] GFR, Estimated 88 (L) >=90 mL/min/1.73 m2 [facility] Specimen Blood Performing Organization Address [facility] one Number [facility] [address] [place] [address] * POCT CREATININE POC docked device (08/01/2019 4:52 PM SOAPING DEPARTMENT SUPERVISOR) [facility] Creatinine POC 0.7 0.6 - 1.3 mg/dL [facility] GFR, Estimated >90 >=90 mL/min/1.73 m2 [facility] Specimen Blood, venous Performing Organization Address [facility] one Number [facility] [address] [place] [phone] * POCT BMP POC docked device (08/01/2019 4:52 PM SOAPING DEPARTMENT SUPERVISOR) Sodium POC 140 136 - 145 mmol/L [facility] Potassium POC 3.6 3.5 - 5.1 mmol/L [facility] Chloride POC 104 98 - 107 mmol/L [facility] TCO2 POC 28 21 - 32 mmol/L [facility] Urea Nitrogen 10 7 - 18 mg/dL [facility] POC Glucose POC 69 (L) 74 - 106 mg/dL [facility] Hemoglobin POC 12.6 12 - 16 g/dL [facility] Hematocrit POC 37.0 37.0 - 47.0 % [facility] Specimen Blood, venous Performing Organization Address [facility] Ph one Number [facility] [address] [place] [address] [phone] * POCT TROPONIN I POC docked device (08/01/2019 4:51 PM SOAPING DEPARTMENT SUPERVISOR) Troponin POC 0.00 0.00 - 0.08 ng/mL [facility] Specimen Blood, venous Performing Organization Address [facility] one Number [facility] [address] [place] [address] * XRAY CHEST 2 VIEWS (08/01/2019 4:24 PM SOAPING DEPARTMENT SUPERVISOR) Specimen Impressions Performed At IMPRESSION: SMS Bibasilar subsegmental atelectasis. Signed By: Erlin Hassan MD, 08/01/2019 4 :27 PM Narrative Performed At EXAM: XR CHEST 2 VIEWS [facility] DATE: 08/01/2019 4:25 PM INDICATION: R rib pain. Rib pain COMPARISON: Chest radiograph 07/04/2019 TECHNIQUE: PA and lateral chest radiogr aphs FINDINGS: Lines, tubes and hardware: Surgical cli ps overlie the gallbladder fossa. Lungs and pleura: Platelike linea r opacities are present at the bilateral lung bases. There is no focal consolidation. The costophrenic sulci are sharp, without pleural effusi on. No pneumothorax is identified. Heart and mediastinum: The heart size i s normal for technique. The mediastinal contours are normal. Bones and soft tissues: No acute abnorm ality. Procedure Note Interface, Rad/Mammog In - 08/01/2019 4:33 PM SOAPING DEPARTMENT SUPERVISOR EXAM: XR CHEST 2 VIEWS DATE: 08/01/2019 4:25 PM INDICATION: R rib pain. Rib pain COMPARISON: Chest radiograph 07/04/2019 TECHNIQUE: PA and lateral chest radiographs FINDINGS: Lines, tubes and hardware: Surgical clips overlie the gallbladder fossa. Lungs and pleura: Platelike linear opacities are present at the bilateral lung bases. There is no focal consolidation. The costophrenic sulci are sharp, without pleural effusion. No pneumothorax is identified. Heart and mediastinum: The heart size is normal for technique. The mediastinal contours are normal. Bones and soft tissues: No acute abnormality. IMPRESSION IMPRESSION: Bibasilar subsegmental atelectasis. Signed By: Erlin Hassan MD, 08/01/2019 4:27 PM Performing Organization Address 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1970 Requested By: JACKIE Palma Order Number: [id number] Reading MD: OCHOA ELLIS Measurements Intervals [place] Rate: 102 P: 43 AK: 158 QRS: -1 QRSD: 93 T: 35 QT: 340 QTc: 445 Interpretive Statements SINUS TACHYCARDIA INCOMPLETE RIGHT BUNDLE BRANCH BLOCK NONSPECIFIC T-WAVE ABNORMALITY ABNORMAL RHYTHM ECG COMPARED TO PRIOR ECG DATED 07/04/19, RSR'NOTED IN V1 Electronically Signed On 08-01-2019 19:31:20 SOAPING DEPARTMENT SUPERVISOR by OCHOA ELLIS Specimen Performing Organization Address [facility] one Number SMS * CBC/Diff (07/05/2019 3:42 AM SOAPING DEPARTMENT SUPERVISOR) Only the most recent of 4 results within the time period is included. WBC 5.3 4.5 - 11.0 K/uL [facility] RBC 3.73 (L) 4.20 - 5.40 M/uL [facility] Hemoglobin 11.2 (L) 12.0 - 16.0 g/dL [facility] Hematocrit 34.2 (L) 37.0 - 47.0 % [facility] MCV 91.7 82.0 - 92.0 fL [facility] MCH 30.0 27.0 - 32.0 pg [facility] MCHC 32.7 32.0 - 36.0 g/dL [facility] RDW 43.8 36.4 - 46.3 fL [facility] Platelet 234 150 - 400 K/uL [facility] Mean Platelet 9.6 9.4 - 12.4 fL [facility] Volume [facility] Percent NRBC 0.0 % [facility] Neutrophil 40.7 34.0 - 70.0 % [facility] Lymphs 46.9 20.0 - 50.0 % [facility] Monocytes 8.0 5.0 - 12.0 % [facility] Eos 3.6 0.7 - 5.0 % [facility] Basos 0.6 0.1 - 1.2 % [facility] Immature 0.2 0.0 - 0.5 % [facility] Granulocytes LABORATORY Neutrophils 2.15 1.56 - 6.13 K/uL [facility] (Absolute) [facility] Lymphs 2.47 1.18 - 3.74 K/uL [facility] (Absolute) [facility] Monocytes(Absol 0.42 (H) 0.24 - 0.36 K/uL [facility] felicita) LABORATORY Eos (Absolute) 0.19 0.04 - 0.36 K/uL [facility] Baso (Absolute) 0.03 0.01 - 0.08 K/uL [facility] Immature Grans 0.01 0.00 - 0.03 K/uL [facility] (Abs) [facility] Absolute NRBC 0.00 K/uL [facility] Specimen Blood Performing Organization Address [facility] one Number [facility] [address] [place] [address] [phone] * Phosphorus (07/05/2019 3:42 AM SOAPING DEPARTMENT SUPERVISOR) Only the most recent of 3 results within the time period is included. Phosphorus 3.9 2.5 - 5.0 mg/dL [facility] Specimen Blood Performing Organization Address [facility] one Number [facility] [address] [place], [place] [phone] * Magnesium (07/05/2019 3:42 AM SOAPING DEPARTMENT SUPERVISOR) Only the most recent of 3 results within the time period is included. Magnesium 2.1 1.9 - 2.7 mg/dL [facility] Specimen Blood Performing Organization Address [facility] one Number [facility] [address] [place], [place] [address] [phone] * Basic Metabolic Panel (07/05/2019 3:42 AM SOAPING DEPARTMENT SUPERVISOR) Only the most recent of 3 results within the time period is included. Sodium 142 136 - 145 mmol/L [facility] Potassium 4.2 3.5 - 5.1 mmol/L [facility] Chloride 104 98 - 107 mmol/L [facility] CO2 29 21 - 31 mmol/L [facility] Urea Nitrogen 15.0 7.0 - 25.0 mg/dL [facility] Creatinine 0.7 0.6 - 1.2 mg/dL [facility] Glucose 97 70 - 110 mg/dL [facility] Calcium 8.7 8.6 - 10.3 mg/dL [facility] GFR, Estimated 88 (L) >=90 mL/min/1.73 m2 [facility] Anion Gap 9 5 - 16 mmol/L [facility] Specimen Blood Performing Organization Address City/State/Zipcode Ph one Number [facility] [address] [place] [address] * XRAY CHEST 1 VIEW (07/04/2019 4:26 PM SOAPING DEPARTMENT SUPERVISOR) Only the most recent of 4 results within the time period is included. Specimen Impressions Performed At IMPRESSION: SMS 1. Evolving lung contusions. 2. Stable bilateral pleural effusions , right greater than left. Hemothorax is considered given recent t rauma. 3. The previously described trace rig ht apical pneumothorax is not seen on this study.Signed By: Capri Newman MD, 07/05/2019 9:10 AM 4. Dictated By: Nannette Villegas MD, 020 4:30 PM I have reviewed the study and agree wit h the findings in this report. Narrative Performed At EXAMINATION: XRAY CHEST 1 VIEW SMS INDICATION: chest pain COMPARISON: Chest radiograph 0 at 5:13 PM FINDINGS: AP view TUBES and LINES: None. LUNGS: Low lung volumes. Improving bi lateral patchy interstitial and airspace opacities . Bibasilar subsegme ntal atelectasis. PLEURA: The previously described tiny r ight apical pneumothorax is not visualized on this study. Unchanged ple ural effusions, right greater than left. HEART AND MEDIASTINUM: The cardiomedi astinal silhouette is unremarkable. BONES AND SOFT TISSUES: Nondisplaced right fourth through seventh and displaced right eighth rib fractures ar e better characterized on chest CT from 07/02/2019. Soft tissues are u nremarkable. UPPER ABDOMEN: No free air under the di aphragm. Procedure Note Interface, Rad/Mammog In - 07/05/2019 9:15 AM SOAPING DEPARTMENT SUPERVISOR EXAMINATION: XRAY CHEST 1 VIEW INDICATION: chest pain COMPARISON: Chest radiograph 07/03/2019 at 5:13 PM FINDINGS: AP view TUBES and LINES: None. LUNGS: Low lung volumes. Improving bilateral patchy interstitial and airspace opacities . Bibasilar subsegmental atelectasis. PLEURA: The previously described tiny right apical pneumothorax is not visualized on this study. Unchanged pleural effusions, right greater than left. HEART AND MEDIASTINUM: The cardiomediastinal silhouette is unremarkable. BONES AND SOFT TISSUES: Nondisplaced right fourth through seventh and displaced right eighth rib fractures are better characterized on chest CT from 07/02/2019. Soft tissues are unremarkable. UPPER ABDOMEN: No free air under the diaphragm. IMPRESSION IMPRESSION: 1. Evolving lung contusions. 2. Stable bilateral pleural effusions, right greater than left. Hemothorax is considered given recent trauma. 3. The previously described trace right apical pneumothorax is not seen on this study.Signed By: Carpi Newman MD, 07/05/2019 9:10 AM 4. Dictated By: Nannette Villegas MD, 07/04/2019 4:30 PM I have reviewed the study and agree with the findings in this report. 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 Pathologist [facility] Troponin I <0.03 <0.04 ng/mL [facility] Specimen Blood Performing Organization Address [facility] one Number [facility] [address] [place] [address] * CK, Total (07/04/2019 3:21 PM SOAPING DEPARTMENT SUPERVISOR) CK 53 30 - 223 U/L [facility] Comment: LABORATORY CKMB not performed if CK is <100. If CKMB is required, please notify laboratory immediately. Specimen Blood Performing Organization Address [facility] one Number [facility] [address] [place] [address] * XRAY FOREARM 2 VIEWS MIN (07/03/2019 9:44 AM SOAPING DEPARTMENT SUPERVISOR) Specimen Impressions Performed At IMPRESSION: SMS No acute radiographic abnormality. Dictated By: Eleno Lock MD, 07/03 10:23 AM I have reviewed the study and agree wit h the findings in this report. Signed By: Ja Mendez MD, 07/03/2019 10 :29 AM Narrative Performed At Right shoulder radiograph - 2 views SMS Right humerus radiograph - 2 views Right forearm radiograph - 2 views HISTORY: pain s/p fall COMPARISON: Chest radiograph 07/03/2019 , chest CT with contrast 07/02/2019 DISCUSSION: Bone: No acute displaced fracture. Joints: Inferomedial displacement of the coleman l head relative to the glenoid, however from the prior chest CT this is in anatomic alignment and therefore, likely related to positionin g. Soft tissues: Pulmonary contusions better seen on CT scan July 02, 2019 Procedure Note Interface, Rad/Mammog In - 07/03/2019 10:34 AM SOAPING DEPARTMENT SUPERVISOR Right shoulder radiograph - 2 views Right humerus radiograph - 2 views Right forearm radiograph - 2 views HISTORY: pain s/p fall COMPARISON: Chest radiograph 07/03/2019 , chest CT with contrast 07/02/2019 DISCUSSION: Bone: No acute displaced fracture. Joints: Inferomedial displacement of the humeral head relative to the glenoid, however from the prior chest CT this is in anatomic alignment and therefore, likely related to positioning. Soft tissues: Pulmonary contusions better seen on CT scan July 02, 2019 IMPRESSION IMPRESSION: No acute radiographic abnormality. Dictated By: Eleno Lock MD, 07/03/2019 10:23 AM I have reviewed the study and agree with the findings in this report. Signed By: Ja Mendez MD, 07/03/2019 10:29 AM Performing Organization Address [facility] one Number SMS * XRAY HUMERUS 2 VIEWS MIN (07/03/2019 9:44 AM SOAPING DEPARTMENT SUPERVISOR) Specimen Impressions Performed At IMPRESSION: [facility] No acute radiographic abnormality. Dictated By: Eleno Lock MD, 07/03 10:23 AM I have reviewed the study and agree wit h the findings in this report. Signed By: aJ Mendez MD, 07/03/2019 10 :29 AM Narrative Performed At Right shoulder radiograph - 2 views SMS Right humerus radiograph - 2 views Right forearm radiograph - 2 views HISTORY: pain s/p fall COMPARISON: Chest radiograph 07/03/2019 , chest CT with contrast 07/02/2019 DISCUSSION: Bone: No acute displaced fracture. Joints: Inferomedial displacement of the coleman l head relative to the glenoid, however from the prior chest CT this is in anatomic alignment and therefore, likely related to positionin g. Soft tissues: Pulmonary contusions better seen on CT scan July 02, 2019 Procedure Note Interface, Rad/Mammog In - 07/03/2019 10:34 AM SOAPING DEPARTMENT SUPERVISOR Right shoulder radiograph - 2 views Right humerus radiograph - 2 views Right forearm radiograph - 2 views HISTORY: pain s/p fall COMPARISON: Chest radiograph 07/03/2019 , chest CT with contrast 07/02/2019 DISCUSSION: Bone: No acute displaced fracture. Joints: Inferomedial displacement of the humeral head relative to the glenoid, however from the prior chest CT this is in anatomic alignment and therefore, likely related to positioning. Soft tissues: Pulmonary contusions better seen on CT scan July 02, 2019 IMPRESSION IMPRESSION: No acute radiographic abnormality. Dictated By: Eleno Lock MD, 07/03/2019 10:23 AM I have reviewed the study and agree with the findings in this report. Signed By: Ja Mendez MD, 07/03/2019 10:29 AM Performing Organization Address [facility] one Number SMS * XRAY SHOULDER 2 VIEWS MIN (07/03/2019 9:44 AM SOAPING DEPARTMENT SUPERVISOR) Specimen Impressions Performed At IMPRESSION: [facility] No acute radiographic abnormality. Dictated By: Eleno Lock MD, 07/03 10:23 AM I have reviewed the study and agree wit h the findings in this report. Signed By: Ja Mendez MD, 07/03/2019 10 :29 AM Narrative Performed At Right shoulder radiograph - 2 views SMS Right humerus radiograph - 2 views Right forearm radiograph - 2 views HISTORY: pain s/p fall COMPARISON: Chest radiograph 07/03/2019 , chest CT with contrast 07/02/2019 DISCUSSION: Bone: No acute displaced fracture. Joints: Inferomedial displacement of the coleman l head relative to the glenoid, however from the prior chest CT this is in anatomic alignment and therefore, likely related to positionin g. Soft tissues: Pulmonary contusions better seen on CT scan July 02, 2019 Procedure Note Interface, Rad/Mammog In - 07/03/2019 10:34 AM SOAPING DEPARTMENT SUPERVISOR Right shoulder radiograph - 2 views Right humerus radiograph - 2 views Right forearm radiograph - 2 views HISTORY: pain s/p fall COMPARISON: Chest radiograph 07/03/2019 , chest CT with contrast 07/02/2019 DISCUSSION: Bone: No acute displaced fracture. Joints: Inferomedial displacement of the humeral head relative to the glenoid, however from the prior chest CT this is in anatomic alignment and therefore, likely related to positioning. Soft tissues: Pulmonary contusions better seen on CT scan July 02, 2019 IMPRESSION IMPRESSION: No acute radiographic abnormality. Dictated By: Eleno Lock MD, 07/03/2019 10:23 AM I have reviewed the study and agree with the findings in this report. Signed By: Ja Mendez MD, 07/03/2019 10:29 AM Performing Organization Address City/State/Zipcode Ph one Number SMS * TRANSTHORACIC ECHO (TTE) (07/03/2019 8:39 AM SOAPING DEPARTMENT SUPERVISOR) TRANSTHORACIC Transthoracic [facility] ECHO (TTE) Echo Report ROXANE OSMAN Age: 49 Gender: F : 1970 Exam Date: 07/03/2019 08:39 Exam Location: [facility] Echo Ordering Phys: TORY SEVERINO Referring Phys: MERE Melara Reading Phys: Neris Porter MD Fellow Phys: Fellow Phys: Gasoline Engine Assembler: Gallo Ramos Reason For Exam: Indications: syncope work-up, Syncope and collapse ICD-9 Codes: R55 Exam Type: TRANSTHORACIC ECHO (TTE) Procedure CPT: 18836 Addtional CPT: Ht (in): 66 BSA: 1.81 HR: 86 Rhythm: Sinus rhythm Wt (lb): 154 BP: 99 / 59 Technical Quality: History: MEASUREMENTS Normal ranges based on 95% confidence intervals for adults, some normal patients may fall outside of this range especially when indexing for BSA 2D ECHO LV Diastolic Diameter PLAX 3 cm 4.2-5.8 (M) / 3.8-5.2 (F) LV Systolic Diameter PLAX 2.1 cm 2.5-4.0 (M) / 2.2-3.5 (F) LV Fractional Shortening PLAX 30.8 % IVS Diastolic Thickness 0.93 cm 0.6-1.0 (M) / 0.6-0.9 (F) LVPW Diastolic Thickness 0.8 cm 0.6-1.0 (M) / 0.6-0.9 (F) LV Relative Wall Thickness 0.59 <= 0.42 LVOT Diameter 2 cm Aortic Root Diameter 3.1 cm LA Volume 35.2 cm LA Volume Index 19.4 cm/m 16 - 34 cm/m LV Mass by linear method 65.5 g LV Mass by linear method Index 36.1 g/m DOPPLER LVOT Peak Velocity 84.9 cm/s LVOT Peak Gradient 2.9 mmHg LVOT Mean Velocity 54.3 cm/s LVOT Mean Gradient 1.3 mmHg LVOT Velocity Time Integral 15 cm LVOT Stroke Volume 46.9 cm LVOT Cardiac Output 10.2 liters/min Mitral E Point Velocity 76.7 cm/s LV E' Lateral Velocity 10.9 cm/s Mitral E to LV E' Lateral Ratio 7 FINDINGS Left Ventricle The left ventricle is normal in size. Normal LV wall thickness. LV systolic function is normal. LVEF is 60 - 64%. There are no regional wall motion abnormalities. There is impaired LV relaxation with normal filling pressures. Right Ventricle The right ventricle is normal in size and systolic function. Right Atrium The right atrium is normal in size. Left Atrium The left atrium is normal in size. IAS Mitral Valve Mitral leaflets mildly thickened. Aortic Valve The aortic valve is trileaflet and structurally normal. Tricuspid Valve Structurally normal tricuspid valve without significant stenosis. There is trace tricuspid regurgitation. Insufficient TR jet to estimate pulmonary artery systolic pressure. Pulmonic Valve Pulmonic valve not well visualized. Pericardium No pericardial effusion. Aorta Normal aortic root for body surface area. IVC The inferior vena cava is normal in size. CONCLUSIONS The left ventricle is normal in size. Normal LV wall thickness. LV systolic function is normal. LVEF is 60 - 64%. There are no regional wall motion abnormalities. There is impaired LV relaxation with normal filling pressures. The right ventricle is normal in size and systolic function. Insufficient TR jet to estimate pulmonary artery systolic pressure. Compared to prior echo no significant changes. Neris Porter MD (Electronically Signed) Final Date: 03 July 2019 12:40 2D ECHO LV Diastolic Diameter PLAX 3 cm 4.2-5.8 (M) / 3.8-5.2 (F) LV Systolic Diameter PLAX 2.1 cm 2.5-4.0 (M) / 2.2-3.5 (F) LV Fractional Shortening PLAX 30.8 % IVS Diastolic Thickness 0.93 cm 0.6-1.0 (M) / 0.6-0.9 (F) LVPW Diastolic Thickness 0.8 cm 0.6-1.0 (M) / 0.6-0.9 (F) LV Relative Wall Thickness 0.59 <= 0.42 LVOT Diameter 2 cm Aortic Root Diameter 3.1 cm LA Volume 35.2 cm LA Volume Index 19.4 cm/m 16 - 34 cm/m LV Mass by linear method 65.5 g LV Mass by linear method Index 36.1 g/m DOPPLER LVOT Peak Velocity 84.9 cm/s LVOT Peak Gradient 2.9 mmHg LVOT Mean Velocity 54.3 cm/s LVOT Mean Gradient 1.3 mmHg LVOT Velocity Time Integral 15 cm LVOT Stroke Volume 46.9 cm LVOT Cardiac Output 10.2 liters/min Mitral E Point Velocity 76.7 cm/s LV E' Lateral Velocity 10.9 cm/s Mitral E to LV E' Lateral Ratio 7 Specimen Performing Organization Address City/State/[facility] Ph one Number SMS * CT ABDOMEN AND PELVIS CONTRAST (07/02/2019 1:16 PM SOAPING DEPARTMENT SUPERVISOR) Specimen Narrative Performed At EXAMINATION: CT CHEST W CONTRAST, CT ABDOMEN AND PE LVIS W CONTRAST SMS INDICATION: Pneumothorax, known, follow up COMPARISON: CT chest 10/02/2018 TECHNIQUE: The chest, abdomen and pelvi s were scanned using a multidetector helical scanner. Coronal and sagittal reformations were obtained. Trauma protocol performed. IV Contrast: 150 Oral Contrast: None Radiation Dose: Total DLP 2860 mGy*cm FINDINGS: LINES/TUBES: None LUNGS/AIRWAYS: Patchy lung contusions in the lingula, right middle lobe and right lower lobe with a combination of aspiration i n both lower lobes. Patent airway. PLEURA: Small right pneumothorax. Mild atelectatic and bibasilar pulmonary contusions, more pronounced o n the right. Small pleural-based opacity within the superior portion of the left upper lobe (series 7/). MEDIASTINUM/VASCULATURE: No evidence of acute traumatic thoracic aortic injury. No mediastinal hematoma or abnormal pericardial effusi on. NECK BASE: No hematoma or mass. LIVER: No laceration or hematoma. BILIARY: Normal gallbladder. No ductal dilation. SPLEEN: No laceration or hematoma. PANCREAS: No laceration or hematoma. ADRENALS: No hemorrhage. KIDNEYS: No laceration or hematoma. No hydronephrosis. A 6.3 cm exophytic cyst within the interpolar re gion of the right kidney that measures simple fluid density (series /). GI TRACT: No obstruction or wall thicke beverley. VESSELS: No evidence of acute traumatic abdominal aortic injury. No extravasation or pseudoaneurysms. PERITONEUM/RETROPERITONEUM: No free air or fluid LYMPH NODES: No lymphadenopathy REPRODUCTIVE ORGANS: Normal BLADDER: Normal SOFT TISSUES: No hematoma. Minimal subc utaneous emphysema of the right lateral thoracic chest. BONES: Nondisplaced fractures of the right 4-7 ribs. Displaced fracture of the right eighth rib. Severe degenerative changes at L5-S1 wi th associated mild (grade 1) degenerative spondylolisthesis. IMPRESSION: 1. Patchy lung contusions in the ling evelia, right middle lobe and right lower lobe with a combination of aspira tion in both lower lobes. 2. Small right pneumothorax. 3. Displaced fracture of the right ei ghth rib. Nondisplaced fractures of the right 4-7 ribs. 4. Large exophytic right renal cyst, recommend ambulatory follow-up renal ultrasound in 6-12 months to dete rmine stability. COMMUNICATION: findings discussed with Dr. Nunn by Dr. Orlando Jenkins in person on 07/02/2019 at 1500. Dictated By: Orlando Jenkins MD, 0 4:01 PM I have reviewed the study and agree wit h the findings in this report. Signed By: Phoebe Chavira MD, 0 4:21 PM Procedure Note Interface, Rad/Mammog In - 07/02/2019 4:41 PM SOAPING DEPARTMENT SUPERVISOR EXAMINATION: CT CHEST W CONTRAST, CT ABDOMEN AND PELVIS W CONTRAST INDICATION: Pneumothorax, known, follow up COMPARISON: CT chest 10/02/2018 TECHNIQUE: The chest, abdomen and pelvis were scanned using a multidetector helical scanner. Coronal and sagittal reformations were obtained. Trauma protocol performed. IV Contrast: 150 Oral Contrast: None Radiation Dose: Total DLP 2860 mGy*cm FINDINGS: LINES/TUBES: None LUNGS/AIRWAYS: Patchy lung contusions in the lingula, right middle lobe and right lower lobe with a combination of aspiration in both lower lobes. Patent airway. PLEURA: Small right pneumothorax. Mild atelectatic and bibasilar pulmonary contusions, more pronounced on the right. Small pleural-based opacity within the superior portion of the left upper lobe (series 7/). MEDIASTINUM/VASCULATURE: No evidence of acute traumatic thoracic aortic injury. No mediastinal hematoma or abnormal pericardial effusion. NECK BASE: No hematoma or mass. LIVER: No laceration or hematoma. BILIARY: Normal gallbladder. No ductal dilation. SPLEEN: No laceration or hematoma. PANCREAS: No laceration or hematoma. ADRENALS: No hemorrhage. KIDNEYS: No laceration or hematoma. No hydronephrosis. A 6.3 cm exophytic cyst within the interpolar region of the right kidney that measures simple fluid density (series 4/). GI TRACT: No obstruction or wall thickening. VESSELS: No evidence of acute traumatic abdominal aortic injury. No extravasation or pseudoaneurysms. PERITONEUM/RETROPERITONEUM: No free air or fluid LYMPH NODES: No lymphadenopathy REPRODUCTIVE ORGANS: Normal BLADDER: Normal SOFT TISSUES: No hematoma. Minimal subcutaneous emphysema of the right lateral thoracic chest. BONES: Nondisplaced fractures of the right 4-7 ribs. Displaced fracture of the right eighth rib. Severe degenerative changes at L5-S1 with associated mild (grade 1) degenerative spondylolisthesis. IMPRESSION: 1. Patchy lung contusions in the lingul a, right middle lobe and right lower lobe with a combination of aspiration in both lower lobes. 2. Small right pneumothorax. 3. Displaced fracture of the right eigh th rib. Nondisplaced fractures of the right 4-7 ribs. 4. Large exophytic right renal cyst, re commend ambulatory follow-up renal ultrasound in 6-12 months to determine stability. COMMUNICATION: findings discussed with Dr. Nunn by Dr. Orlando Jenkins in person on 07/02/2019 at 1500. Dictated By: Orlando Jenkins MD, 07/02/2019 4:01 PM I have reviewed the study and agree with the findings in this report. Signed By: Phoebe Chavira MD, 07/02/2019 4:21 PM Performing Organization Address City/State/Zipcode Ph one Number SMS * CT C-SPINE W/O CONTRAST (07/02/2019 1:16 PM SOAPING DEPARTMENT SUPERVISOR) Specimen Impressions Performed At IMPRESSION: [facility] Head CT: 1. No abnormalities. 2. No changes when compared to the ad CT on 05/20/2018. 3. Minimal supratentorial white matte r small vessel ischemic changes, described on the MRI are beyond the sco pe of resolution for this noncontrast head CT. Cervical Spine: 1. No acute abnormalities. 2. Cannot adequately assess for ligam ent, spinal cord or vascular injuries. 3. Moderate degenerative spinal canal and foraminal stenosis as described Dictated By: Steve Dias MD, 020 1:50 PM I have reviewed the study and agree wit h the findings in this report. Signed By: Pk Eaton MD, 2019 2:14 PM Narrative Performed At Exam: Head and Cervical Spine CT's without contrast [facility] History: Head trauma, headache Comparison studies: Head CT 05/20/2018, brain MRI 07/03/2018. . Technique: Axial scans obtained through the head a nd cervical spine. Coronal and sagittal reconstructions ob tained from the axial data. IV Contrast: None Complications: None Radiation Dose: Total DLP: 1453 mGy*cm FINDINGS: Head CT: Scalp/Skull: No abnormalities. Brain sulci: Appropriate for patient's age. Ventricles: Normal in size and configur ation. No hydrocephalus. Extra-axial spaces: No masses or fluid collections. Parenchyma: No abnormal densities. No masses, hemorrhage or acute or chron ic cortical insults Dural sinuses: No abnormal densities. Sellar/Suprasellar region: Intact. Skull base and Craniocervical junction: Intact . Cervical spine CT: Fractures: None. Craniocervical junction: Patent foramen magnum. No Chiari 1 malformation. Alignment:Normal lordosis.No scoliosis. No subluxation. Posterior longitudinal ligament: Not os sified. Soft tissues: No abnormalities. Vertebrae: No infection or neoplasm . Degenerative changes: * Mildly degenerated disc at C4-5, mo derate at C5-6 and C6-7, mild from C7 to T3. * Foraminal stenosis, moderate right at C4-5, bilaterally at C5-6 and C6-7 due to facet and uncoarthrosis. * Moderate spinal canal stenosis at C 5-6 and C6-7 due to disc osteophyte complexes. Incidental findings: None. Procedure Note Interface, Rad/Mammog In - 07/02/2019 2:19 PM SOAPING DEPARTMENT SUPERVISOR Exam: Head and Cervical Spine CT's without contrast History: Head trauma, headache Comparison studies: Head CT 05/20/2018, brain MRI 07/03/2018.. Technique: Axial scans obtained through the head and cervical spine. Coronal and sagittal reconstructions obtained from the axial data. IV Contrast: None Complications: None Radiation Dose: Total DLP: 1453 mGy*cm FINDINGS: Head CT: Scalp/Skull: No abnormalities. Brain sulci: Appropriate for patient's age. Ventricles: Normal in size and configuration. No hydrocephalus. Extra-axial spaces: No masses or fluid collections. Parenchyma: No abnormal densities. No masses, hemorrhage or acute or chronic cortical insults Dural sinuses: No abnormal densities. Sellar/Suprasellar region: Intact. Skull base and Craniocervical junction: Intact . Cervical spine CT: Fractures: None. Craniocervical junction: Patent foramen magnum. No Chiari 1 malformation. Alignment:Normal lordosis.No scoliosis.No subluxation. Posterior longitudinal ligament: Not ossified. Soft tissues: No abnormalities. Vertebrae: No infection or neoplasm . Degenerative changes: * Mildly degenerated disc at C4-5, moderate at C5-6 and C6-7, mild from C7 to T3. * Foraminal stenosis, moderate right at C4-5, bilaterally at C5-6 and C6-7 due to facet and uncoarthrosis. * Moderate spinal canal stenosis at C5-6 and C6-7 due to disc osteophyte complexes. Incidental findings: None. IMPRESSION IMPRESSION: Head CT: 1. No abnormalities. 2. No changes when compared to the head CT on 05/20/2018. 3. Minimal supratentorial white matter small vessel ischemic changes, described on the MRI are beyond the scope of resolution for this noncontrast head CT. Cervical Spine: 1. No acute abnormalities. 2. Cannot adequately assess for ligamen t, spinal cord or vascular injuries. 3. Moderate degenerative spinal canal a nd foraminal stenosis as described Dictated By: Steve Dias MD, 07/02/2019 1:50 PM I have reviewed the study and agree with the findings in this report. Signed By: Pk Eaton MD, 07/02/2019 2:14 PM Performing Organization Address City/State/Zipcode Ph one Number SMS * CT CHEST W CONTRAST (07/02/2019 1:16 PM SOAPING DEPARTMENT SUPERVISOR) Specimen Narrative Performed At EXAMINATION: CT CHEST W CONTRAST, CT ABDOMEN AND PE LVIS W CONTRAST SMS INDICATION: Pneumothorax, known, follow up COMPARISON: CT chest 10/02/2018 TECHNIQUE: The chest, abdomen and pelvi s were scanned using a multidetector helical scanner. Coronal and sagittal reformations were obtained. Trauma protocol performed. IV Contrast: 150 Oral Contrast: None Radiation Dose: Total DLP 2860 mGy*cm FINDINGS: LINES/TUBES: None LUNGS/AIRWAYS: Patchy lung contusions in the lingula, right middle lobe and right lower lobe with a combination of aspiration i n both lower lobes. Patent airway. PLEURA: Small right pneumothorax. Mild atelectatic and bibasilar pulmonary contusions, more pronounced o n the right. Small pleural-based opacity within the superior portion of the left upper lobe (series 7/). MEDIASTINUM/VASCULATURE: No evidence of acute traumatic thoracic aortic injury. No mediastinal hematoma or abnormal pericardial effusi on. NECK BASE: No hematoma or mass. LIVER: No laceration or hematoma. BILIARY: Normal gallbladder. No ductal dilation. SPLEEN: No laceration or hematoma. PANCREAS: No laceration or hematoma. ADRENALS: No hemorrhage. KIDNEYS: No laceration or hematoma. No hydronephrosis. A 6.3 cm exophytic cyst within the interpolar re gion of the right kidney that measures simple fluid density (series 4 /). GI TRACT: No obstruction or wall thicke beverley. VESSELS: No evidence of acute traumatic abdominal aortic injury. No extravasation or pseudoaneurysms. PERITONEUM/RETROPERITONEUM: No free air or fluid LYMPH NODES: No lymphadenopathy REPRODUCTIVE ORGANS: Normal BLADDER: Normal SOFT TISSUES: No hematoma. Minimal subc utaneous emphysema of the right lateral thoracic chest. BONES: Nondisplaced fractures of the right 4-7 ribs. Displaced fracture of the right eighth rib. Severe degenerative changes at L5-S1 wi th associated mild (grade 1) degenerative spondylolisthesis. IMPRESSION: 1. Patchy lung contusions in the ling evelia, right middle lobe and right lower lobe with a combination of aspira tion in both lower lobes. 2. Small right pneumothorax. 3. Displaced fracture of the right ei ghth rib. Nondisplaced fractures of the right 4-7 ribs. 4. Large exophytic right renal cyst, recommend ambulatory follow-up renal ultrasound in 6-12 months to dete rmine stability. COMMUNICATION: findings discussed with Dr. Nunn by Dr. Orlando Jenkins in person on 07/02/2019 at 1500. Dictated By: Orlando Jenkins MD, 0 4:01 PM I have reviewed the study and agree wit h the findings in this report. Signed By: Phoebe Chavira MD, 0 4:21 PM Procedure Note Interface, Rad/Mammog In - 07/02/2019 4:41 PM SOAPING DEPARTMENT SUPERVISOR EXAMINATION: CT CHEST W CONTRAST, CT ABDOMEN AND PELVIS W CONTRAST INDICATION: Pneumothorax, known, follow up COMPARISON: CT chest 10/02/2018 TECHNIQUE: The chest, abdomen and pelvis were scanned using a multidetector helical scanner. Coronal and sagittal reformations were obtained. Trauma protocol performed. IV Contrast: 150 Oral Contrast: None Radiation Dose: Total DLP 2860 mGy*cm FINDINGS: LINES/TUBES: None LUNGS/AIRWAYS: Patchy lung contusions in the lingula, right middle lobe and right lower lobe with a combination of aspiration in both lower lobes. Patent airway. PLEURA: Small right pneumothorax. Mild atelectatic and bibasilar pulmonary contusions, more pronounced on the right. Small pleural-based opacity within the superior portion of the left upper lobe (series 7/33). MEDIASTINUM/VASCULATURE: No evidence of acute traumatic thoracic aortic injury. No mediastinal hematoma or abnormal pericardial effusion. NECK BASE: No hematoma or mass. LIVER: No laceration or hematoma. BILIARY: Normal gallbladder. No ductal dilation. SPLEEN: No laceration or hematoma. PANCREAS: No laceration or hematoma. ADRENALS: No hemorrhage. KIDNEYS: No laceration or hematoma. No hydronephrosis. A 6.3 cm exophytic cyst within the interpolar region of the right kidney that measures simple fluid density (series 4/44). GI TRACT: No obstruction or wall thickening. VESSELS: No evidence of acute traumatic abdominal aortic injury. No extravasation or pseudoaneurysms. PERITONEUM/RETROPERITONEUM: No free air or fluid LYMPH NODES: No lymphadenopathy REPRODUCTIVE ORGANS: Normal BLADDER: Normal SOFT TISSUES: No hematoma. Minimal subcutaneous emphysema of the right lateral thoracic chest. BONES: Nondisplaced fractures of the right 4-7 ribs. Displaced fracture of the right eighth rib. Severe degenerative changes at L5-S1 with associated mild (grade 1) degenerative spondylolisthesis. IMPRESSION: 1. Patchy lung contusions in the lingul a, right middle lobe and right lower lobe with a combination of aspiration in both lower lobes. 2. Small right pneumothorax. 3. Displaced fracture of the right eigh th rib. Nondisplaced fractures of the right 4-7 ribs. 4. Large exophytic right renal cyst, re commend ambulatory follow-up renal ultrasound in 6-12 months to determine stability. COMMUNICATION: findings discussed with Dr. Nunn by Dr. Orlando Jenkins in person on 07/02/2019 at 1500. Dictated By: Orlando Jenkins MD, 07/02/2019 4:01 PM I have reviewed the study and agree with the findings in this report. Signed By: Phoebe Chavira MD, 07/02/2019 4:21 PM Performing Organization Address City/State/[facility] Ph one Number SMS * CT HEAD W/O CONTRAST (07/02/2019 1:16 PM SOAPING DEPARTMENT SUPERVISOR) Specimen Impressions Performed At IMPRESSION: [facility] Head CT: 1. No abnormalities. 2. No changes when compared [facility]. 3. Minimal supratentorial white matte r small vessel ischemic changes, described on the MRI are beyond the sco pe of resolution for this noncontrast head CT. Cervical Spine: 1. No acute abnormalities. 2. Cannot adequately assess for ligam ent, spinal cord or vascular injuries. 3. Moderate degenerative spinal canal and foraminal stenosis as described Dictated By: Steve Dias MD, 020 1:50 PM I have reviewed the study and agree wit h the findings in this report. Signed By: Pk Eaton MD, 2019 2:14 PM Narrative Performed At Exam: Head and Cervical Spine CT's without contrast SMS History: Head trauma, headache Comparison studies: Head CT 05/20/2018, brain MRI 07/03/2018. . Technique: Axial scans obtained through the head a nd cervical spine. Coronal and sagittal reconstructions ob tained from the axial data. IV Contrast: None Complications: None Radiation Dose: Total DLP: 1453 mGy*cm FINDINGS: Head CT: Scalp/Skull: No abnormalities. Brain sulci: Appropriate for patient's age. Ventricles: Normal in size and configur ation. No hydrocephalus. Extra-axial spaces: No masses or fluid collections. Parenchyma: No abnormal densities. No masses, hemorrhage or acute or chron ic cortical insults Dural sinuses: No abnormal densities. Sellar/Suprasellar region: Intact. Skull base and Craniocervical junction: Intact . Cervical spine CT: Fractures: None. Craniocervical junction: Patent foramen magnum. No Chiari 1 malformation. Alignment:Normal lordosis.No scoliosis. No subluxation. Posterior longitudinal ligament: Not os sified. Soft tissues: No abnormalities. Vertebrae: No infection or neoplasm . Degenerative changes: * Mildly degenerated disc at C4-5, mo derate at C5-6 and C6-7, mild from C7 to T3. * Foraminal stenosis, moderate right at C4-5, bilaterally at C5-6 and C6-7 due to facet and uncoarthrosis. * Moderate spinal canal stenosis at C 5-6 and C6-7 due to disc osteophyte complexes. Incidental findings: None. Procedure Note Interface, Rad/Mammog In - 07/02/2019 2:19 PM SOAPING DEPARTMENT SUPERVISOR Exam: Head and Cervical Spine CT's without contrast History: Head trauma, headache Comparison studies: Head CT 05/20/2018, brain MRI 07/03/2018.. Technique: Axial scans obtained through the head and cervical spine. Coronal and sagittal reconstructions obtained from the axial data. IV Contrast: None Complications: None Radiation Dose: Total DLP: 1453 mGy*cm FINDINGS: Head CT: Scalp/Skull: No abnormalities. Brain sulci: Appropriate for patient's age. Ventricles: Normal in size and configuration. No hydrocephalus. Extra-axial spaces: No masses or fluid collections. Parenchyma: No abnormal densities. No masses, hemorrhage or acute or chronic cortical insults Dural sinuses: No abnormal densities. Sellar/Suprasellar region: Intact. Skull base and Craniocervical junction: Intact . Cervical spine CT: Fractures: None. Craniocervical junction: Patent foramen magnum. No Chiari 1 malformation. Alignment:Normal lordosis.No scoliosis.No subluxation. Posterior longitudinal ligament: Not ossified. Soft tissues: No abnormalities. Vertebrae: No infection or neoplasm . Degenerative changes: * Mildly degenerated disc at C4-5, moderate at C5-6 and C6-7, mild from C7 to T3. * Foraminal stenosis, moderate right at C4-5, bilaterally at C5-6 and C6-7 due to facet and uncoarthrosis. * Moderate spinal canal stenosis at C5-6 and C6-7 due to disc osteophyte complexes. Incidental findings: None. IMPRESSION IMPRESSION: Head CT: 1. No abnormalities. 2. No changes when compared to the head CT on 05/20/2018. 3. Minimal supratentorial white matter small vessel ischemic changes, described on the MRI are beyond the scope of resolution for this noncontrast head CT. Cervical Spine: 1. No acute abnormalities. 2. Cannot adequately assess for ligamen t, spinal cord or vascular injuries. 3. Moderate degenerative spinal canal a nd foraminal stenosis as described Dictated By: Steve Dias MD, 07/02/2019 1:50 PM I have reviewed the study and agree with the findings in this report. Signed By: Pk Eaton MD, 07/02/2019 2:14 PM Performing Organization Address [facility] Ph one Number SMS * FECAL OCCULT BLOOD (05/23/2019 3:31 PM SOAPING DEPARTMENT SUPERVISOR) Occult Blood Negative Negative [facility] Specimen Stool - Feces Performing Organization Address [facility] Ph one Number [facility] [address] [place] [address] [facility] * XRAY ANKLE 3 VIEW MIN (2019 11:26 AM SOAPING DEPARTMENT SUPERVISOR) Specimen Impressions Performed At IMPRESSION: SMS 1. Old, healed Melchro B lateral malleolu s fracture. 2. Mild lateral translation of the talu s. Signed By: Aniket Ortiz MD, 2018 1:45 PM Narrative Performed At EXAM: XR LEFT ANKLE 3 VIEWS SMS DATE: 2019 11:26 AM INDICATION: left ankle sprain. Pain of joint of left ankle and foot COMPARISON: None available TECHNIQUE: AP, lateral and oblique an kle radiographs DISCUSSION: Old, healed lateral malleol us fracture. Mild lateral translation of the talus with widening of the distal syndesmosis and medial clear space. The ankle mortise i s congruent. No soft tissue abnormality is identifie d. Procedure Note Interface, Rad/Mammog In - 2019 1:50 PM SOAPING DEPARTMENT SUPERVISOR EXAM: XR LEFT ANKLE 3 VIEWS DATE: 2019 11:26 AM INDICATION: left ankle sprain. Pain of joint of left ankle and foot COMPARISON: None available TECHNIQUE: AP, lateral and oblique ankle radiographs DISCUSSION: Old, healed lateral malleolus fracture. Mild lateral translation of the talus with widening of the distal syndesmosis and medial clear space. The ankle mortise is congruent. No soft tissue abnormality is identified. IMPRESSION IMPRESSION: 1. Old, healed Melchor B lateral malleolus fracture. 2. Mild lateral translation of the talus . Signed By: Aniket Ortiz MD, 2019 1:45 PM Performing Organization Address City/State/Zipcode Ph one Number SMS after 04/07/2019 Additional Health Concerns Last Indicated Resolved Time Infection Onset Date 04/02/2020 PUI Covid-19 04/02/2020 Insurance Type Payer Benefit Subscriber ID Effective Phone Address Plan / Dates Group [place] [id number] SSI xxxxxxxxx 2018-P [phone] [id number] [place] [address] [place] [employer] [place] 2019 [address] [place] [address] [place] [id number] [facility] PLAN FINANCIAL xxxxxxx 2019 [address] [place] [address] Advance Directives Date Inactivated Comments Code Status Date Activated 07/05/2019 2:40 PM Full Code 07/02/2019 2:31 PM 10/05/2018 3:32 PM Full Code 10/02/2018 10:59 PM
--- OUTSIDE RECORDS SUMMARY | 2020-04-07 09:35 | XMS REPORT | Continuity of Care Document ---
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 Role Phone [facility] Information Exchange Unavailable Un available Problems Problem Status Onset Date Classification Date Reported Comments Source LOWER BACK PAIN Active 10/15/2011 [facility] Medications Medication Details Route Status Patient Instructions Ordering Provider Order Date Source Flexeril 10 mg oral tablet 10 mg, 1 tab, PO, TID, PRN, 15 tab, for spasm, Substitution Allowed, TAB PO Active Rex fentno 10/15/2011 [facility] acetaminophen-hydrocodone 500 mg-5 mg oral tablet 1-2 tab, PO, Q4-6H, PRN, 15 tab, Pain, Substitution Allowed, Maintenance PO Active [place] 10/15/2011 [facility] Colace 100 mg oral capsule 100 mg, 1 cap, PO, BID, PRN, 20 cap, Constipation, Substitution Allowed, CAP PO Active Rex 10/15/2011 [facility] Fleet Enema Route: IN, ONCALL, Start date: 10/15/11 11:00:00 IN [facility] Longer [facility] GoLYTELY 250 mL, Route: PO, Dr ug Form: PDR/REC, ONCE, Start date: 10/15/11 10:10:00, Stop date: 10/15/11 10:10:00 PO No Longer Active [facility] 10/15/2011 [facility] Valium 5 mg, 1 tab, Route: PO, Drug form: TAB, ONCE, PRN Spasm, Start date: 10/15/11 9:25:00 PO No Longer Active [facility] 10/15/2011 [facility] morphine Sulfate 5 mg, 2.5 mL, Route: IVP, Drug form: INJ, ONCE, Priority: STAT, Start date: 10/15/11 9:25:00, Stop date: 10/15/11 9:25:00 IVP No Longer Active [facility] 10/15/2011 [facility] Toradol 30 mg/mL injectable solution 30 mg, 1 mL, Route: IV, Drug form: INJ, ONCE, Start date: 10/15/11 9:25:00, Stop date: 10/15/11 9:25:00 IV No Longer Active Michael 10/15/2011 [facility] Unknown Home Medication Substi tution Allowed Active 10/15/2011 [facility] Vicodin 5/500 oral tablet 1 ta b, PO, Q4H, PRN, for pain, Substitution Allowed, Maintenance, TAB PO Active 10/15/2011 [facility] Allergies, Adverse Reactions, Alerts No Known Medication Allergies Immunizations No Data Provided for This Section Results No Data Provided for This Section Pathology Reports No Data Provided for This Section Diagnostic Reports No Data Provided for This Section Consultation Notes No Data Provided for This Section Discharge Summaries No Data Provided for This Section History and Physicals No Data Provided for This Section Vital Signs Vital Sign Value Date Comments Source Weight 70.455 10/15/2011 [facility] Height 167.64 cm 10/15/2011 [facility] Encounters Location Location Details Encounter Type Encounter Number Reason For Visit Attending Provider ADM Date DC Date Status Source [facility] Emergency [id number] TAMRA KALEB 10/15/2011 10/15/2011 Discharged [facility] Procedures No Data Provided for This Section Assessment and Plan No Data Provided for This Section Plan of Care No Data Provided for This Section Social History No Data Provided for This Section Family History No Data Provided for This Section Advance Directives No Data Provided for This Section Functional Status No Data Provided for This Section
--- OUTSIDE RECORDS SUMMARY | 2020-04-07 09:36 | XMS REPORT | Continuity of Care Document ---
Author Author [facility] t Organization [facility] Address 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 Machine Name Role Phone NONSTAFF PCP Unavailable ABIODUN, T STANISLAV Attphys Unavailable Ed COUNCILLOR AB[employer]IGINAL [place], Doreen Attphys Bree GROVE, C Lucio Attphys Jerry MARISCAL, D Taty Attphys Unavailable Mark GROVE, Riaz Duvall Attphys Miguelangel GROVE, Geoff Guillaume Attphys Adonis GROVE, Marcelina Shields Attphys Doctor, [facility] Attphys Unavailable Julienne ALVARADOP, F Rosa Attphys Brianna GROVE, JeanP aul Pearce Attphys Jim GROVE, Cruz Morton Attphys Floyd Israel DO Attphys [phone] Percy Psychologist, M Jacque Attphys Neri PT, Shaina Perea Attphys Unavailable Kassidy RN, Rubi Martínez Attphys Unavailable Stanislav GROVE, Michelet Kern Attphys Andreina GROVE, Cruz Quezada Attphys Jimmy GROVE, T Levon Attphys Santi GROVE, E Dinesh Attphys Samantha RN, Chrystal Attphys Unavailable Luna Sexton RN, Attphys Unavailable Chintan [facility], [place] Attphys Unavailable Kaz GROVE, Geneva Magallanes Attphys Mere GROVE, K Kaushik Attphys Unavailable ZOMPA, A HINA Attphys Unavailable Scott, Tanya Matthew Attphys Unavailable Mcarthur MD, Jorge Robles Attphys [phone] Razmandi OD, Alethea Attphys Paulino JACKSON Attphys Unavailable ESSES, DR MCMULLEN Attphys Unavailable ESSES, DR MCMULLEN Admphys Unavailable Payers Payer Name Policy Type Policy Number Effective Date Expiration Date S ource Miscellaneous Ppo [id number] [facility] [id number] SSI RECIPIENTxxxxxxxx [id number] [id number], [place] [address] xxxxxxxxx 2018 00:00:00 [facility] FAMILY PLANNING INDIGENT[place] FAMI LY PLANNING [id number]/28/[id number], [place] [address] xxxxxxx 2019 00:00:00 2020 23:59:59 [facility] PLANFINANCIAL ASSISTANCE [id number]/28/[id number] [place] [address] xxxxxxx 2019 00:00:00 2020 23:59:59 Ezekiel patton [id number] 2018-PresentMedicaid [id number] 2018 00:00:00 [facility] Problems Condition Name Condition Details Condition Category Status Onset Date Resolution Date Last Treatment Date Treating Clinician Comments Source Fall Fall Disease Active 2019-07-02 00:00:00 [facility] Right sided weakness Right sided weakness Disease Active 00:00:00 [facility] Impaired functional mobility, balance, gait, and endur ance Impaired functional mobility, balance, gait, and endurance Disease Active 2018-11-02 00:00:00 [facility] Decreased strength Decreased strength Disease Active 2018-11-02 00:00:0 0 [facility] Abnormal MRI, cervical spine Abnormal MRI, cervical spine Disease Active 2018-10-05 00:00:00 Ezekiel patton Other chest pain Other chest pain Disease Active 2018-10-03 00:00:00 [facility] Elevated troponin Elevated troponin Disease Active 2018-10-02 00:00:00 [facility] Coronary artery disease involving [place] coronary ileana ry of [place] heart Coronary artery disease involving [place] coronary artery of [place] heart Disease Active 2018-10-02 00:00:00 [facility] Headaches due to old head injury Headaches due to old head injur y Disease Active 2018-05-20 00:00:00 Mary rodriguez [facility] Altered mental status Altered mental status Problem Active 201 11-25-17 00:00:00 [facility] Dehydration Dehydration Problem Active 2016-03-06 00:00:00 [facility] Drug overdose Overdose Problem Active 2016-03-06 00:00:00 [facility] Weakness Weakness Problem Active 2016-03-06 00:00:00 [facility] Anxiety Anxiety Problem Active 2016-01-25 00:00:00 [facility] Atypical chest pain Atypical chest pain Problem Active 2016-01-25 00:00 :00 [facility] Gastroesophageal reflux disease GERD (gastroesophageal reflux di sease) Problem Active 2016-01-25 00:00:00 [facility] Chest pain Chest pain Problem Active 2016-01-18 00:00:00 [facility] Indigestion Indigestion Problem Active 2016-01-18 00:00:00 [facility] LOWER BACK PAIN LOWE R BACK PAIN Active 10/15/2011 [facility] Diagnosis Active 2011-10-15 00:00:00 2011-10-15 09:45:00 [facility] Acute pain due to trauma Problem Active [facility] Concussion Problem Active [facility] Hip injury Problem Active [facility] Unstable angina Unstable angina Disease Active [facility] Numbness and tingling of right arm Numbness and tingling of righ t arm Disease Active [facility] Cervical radiculopathy Cervical radiculopathy Disease Active [facility] Chronic bilateral low back pain Chronic bilateral low back pain Dis ease Active [facility] Pneumothorax, traumatic Pneumothorax, traumatic Disease Active [facility] Allergies, Adverse Reactions, Alerts Allergy Name Allergy Type Status Severity Reaction(s) Onset Date Inacti ve Date Treating Clinician Comments Source Sulfa (Sulfonamide Antibiotics) Allergy to substance Active Moder ate 2019-07-02 00:00:00 [facility] Metoprolol Allergy to substance Active Moderate 2019-07-02 00:00:0 0 [facility] Sulfa (Sulfonamide Antibiotics) Propensity to adverse reactions to drug Active 2018-12-14 00:00:00 [place] [facility] Sulfur Propensity to adverse reactions to drug Active Itching 2018-06-25 00:00:00 [facility] Metoprolol Propensity to adverse reactions to drug Active Other 2016-08-05 00:00:00 headache [facility] Sulfa (Sulfonamide Antibiotics) DA Active SV 2014-09-23 00 :00:00 [facility] Sulfa (Sulfonamide Antibiotics) Propensity to adverse reactions to drug Active Moderate 2014-09-23 00:00:00 [facility] Family History Family Member Diagnosis Comments Start Date Stop Date Source Natural brother Other [facility] Natural father [facility] Natural mother [facility] Paternal grandfather [facility] Natural sister [facility] Social History Social Habit Start Date Stop Date Quantity Comments Source History of tobacco use Cigarette Smoker [facility] Sex Assigned At [facility] Exposure to SARS-CoV-2 (event) Not sure [facility] Tobacco use and exposure 2020-03-03 00:00:00 2020-03-03 00:00:00 Delmis roth used [facility] Cigarettes smoked current (pack per day) - Reported 00:00:00 2019-10-15 00:00:00 [facility] Alcohol intake 2019-10-15 00:00:00 2019-10-15 00:00:00 Current drinker of alcohol (finding) [facility] Tobacco Comment 2018-07-05 00:00:00 2018-07-05 00:00:00 trying [facility] History SDOH Alcohol Frequency 2018-06-25 00:00:00 2018-06-25 00:00:0 0 3 [facility] SDOH Alcohol Std Drinks 2018-06-25 00:00:00 2018-06-25 00:00: 00 2 [facility] SDOH Alcohol Binge 2018-06-25 00:00:00 2018-06-25 00:00:00 1 [facility] SDOH Food Worry 2018-06-25 00:00:00 2018-06-25 00:00:00 [facility] 2018-06-25 00:00:00 2018-06-25 00:00:00 1 [facility] Alcohol Comment 2018-06-25 00:00:00 2018-06-25 00:00:00 socially [facility] Smoking Status Start Date Stop Date Source Current every day smoker 2019-10-15 00:00:00 [facility] Medications Ordered Medication Name Filled Medication Name Start Date Stop Da te Current Medication? Ordering Clinician Indication Dosage Frequency Signature (SIG) Comments Components Source predniSONE (DELTASONE) 20 mg tablet 2020-04-02 00:00:0 0 2020-04-07 23:59:00 Yes Viral infection 20mg QD Take 1 tablet by mouth daily for 5 days. [facility] tiZANidine (ZANAFLEX) 4 mg tablet 2020-03-31 00:00:00 2019 23:59:00 Yes Spasm of muscle 4mg Take 1 tablet by mouth 2 times daily as needed for up to 30 days for Muscle Spasms. [facility] clonazePAM (KLONOPIN) 1 mg tablet 2020-03-25 00:00:00 Yes Myoclonus 1mg Take 1 tablet by mouth 2 times daily as needed (for myoclonus). [facility] traMADoL (ULTRAM) 50 mg tablet 2020-03-25 00:00:00 Yes Chronic midline low back pain, unspecified whether sciatica present 50mg Take 1 tablet by mouth 2 times daily as needed for Pain. [facility] C[facility] patel doxycycline monohydrate (MONODOX) 100 mg capsule 2020-03-11 00:00:00 2020-04-02 23:59:00 No Cough 100mg Q.5D Take 1 capsule by mouth 2 times daily for 10 days. [facility] ibuprofen (ADVIL) 600 MG tablet 2020-03-03 00:00:00 23:59:00 No 600mg Q6H Take 1 tablet (600 m g total) by mouth every 6 (six) hours as needed for mild pain or moderate pain for up to 30 days. [facility] traZODone (DESYREL) 100 mg tablet 2020-02-28 00:00:00 Yes Insomnia due to medical condition 100mg Take 1 tablet by mouth at bedtime nightl y. [facility] traMADoL (ULTRAM) 50 mg tablet 2020-02-21 00:00:00 2020-02-19 00:00:00 No Chronic midline low back pain, unspecified whether sciatica present 50mg Take 1 tablet by mouth 2 times daily as needed for Pain. [facility] benzonatate (TESSALON PERLES) 100 mg capsule 00:00:00 2020-03-03 23:59:00 No Cough 100mg Take 1 capsule by mouth 3 times daily as needed for up to 7 days for Cough. [facility] ibuprofen (ADVIL) 600 MG tablet 2020-02-02 00:00:00 00:00:00 No 600mg Q6H Take 1 tablet (600 m g total) by mouth every 6 (six) hours as needed for mild pain or moderate pain for up to 30 days. [facility] benzonatate (TESSALON PERLES) 100 mg capsule 202 00:00:00 2020-02-12 00:00:00 No Cough 100mg Take 1 capsule by mouth 3 times daily as needed for up to 7 days for Cough. [facility] tiZANidine (ZANAFLEX) 4 mg tablet 2020-01-29 00:00:00 2019 23:59:00 No Spasm of muscle 4mg Take 1 tablet by mouth 3 times carol ly for 10 days. [facility] gabapentin (NEURONTIN) 800 mg tablet 2020-01-20 00:00:00 Yes Migraines 800mg Take 1 tablet by mouth 3 times daily. [facility] clonazePAM (KLONOPIN) 1 mg tablet 2020-01-20 00:00:00 2019 00:00:00 No Myoclonus 1mg Take 1 tablet by mouth 2 aydee es daily as needed (for myoclonus). [facility] traMADoL (ULTRAM) 50 mg tablet 2020-01-20 00:00:00 2020-01-19 6 00:00:00 No Chronic midline low back pain, unspecified whether sciatica present 50mg Take 1 tablet by mouth 2 times daily as needed for Pain. [facility] traZODone (DESYREL) 100 mg tablet 2020-01-02 00:00:00 2019 00:00:00 No Insomnia due to medical condition 100mg Take 1 tablet by mouth at bedtime nightly. [facility] traZODone (DESYREL) 100 mg tablet 2020-01-01 00:00:00 2019 00:00:00 No Insomnia due to medical condition 100mg Take 1 tablet by mouth at bedtime nightly. [facility] doxycycline monohydrate (MONODOX) 100 mg capsule 2019-12-12 00:00:00 2019-12-23 23:59:00 No Acute upper respiratory infection 100m g Q.5D Take 1 capsule by mouth 2 times daily for 10 days. [facility] SUMAtriptan (IMITREX) 50 mg tablet 2019-12-11 00:00:00 Yes Migraine without status migrainosus, not intractable, unspecified migraine type Take 1 tablet by mouth at onset of headache. Repeat after 2 hours if needed. Maximum 200mg/24 hours.. [facility] traMADoL (ULTRAM) 50 mg tablet 2019-12-11 00:00:00 2 00:00:00 No Chronic midline low back pain, unspecified whether sciatica present 100mg Take 2 tablets by mouth 2 times daily as needed for Pain. [facility] tiZANidine (ZANAFLEX) 4 mg tablet 2019-12-11 00:00:00 2019 23:59:00 No Chronic midline low back pain, unspecified whether sciatica pres ent 4mg Take 1 tablet by mouth 2 times daily as needed for up to 10 days for Muscle Spasms. [facility] traMADoL (ULTRAM) 50 mg tablet 2019-12-04 00:00:00 2019-11-19 4 00:00:00 No Chronic midline low back pain, unspecified whether sciatica present 100mg Take 2 tablets by mouth 2 times daily as needed for Pain. [facility] amitriptyline (ELAVIL) 25 mg tablet 2019-11-15 00:00:00 Yes Migraines 75mg Take 3 tablets by mouth at bedtime nightly. [facility] clonazePAM (KLONOPIN) 1 mg tablet 2019-11-06 00:00:00 2019 00:00:00 No Myoclonus 1mg Take 1 tablet by mouth 3 aydee es daily as needed (for myoclonus). [facility] tiZANidine (ZANAFLEX) 4 mg tablet 2019-11-06 00:00:00 2019 00:00:00 No Chronic midline low back pain, unspecified whether sciatica pres ent 4mg Take 1 tablet by mouth 2 times daily as needed for up to 10 days for Muscle Spasms. [facility] traMADoL (ULTRAM) 50 mg tablet 2019-11-06 00:00:00 2019-11-18 2 00:00:00 No Chronic midline low back pain, unspecified whether sciatica present 100mg Take 2 tablets by mouth 2 times daily as needed for Pain. [facility] clonazePAM (KLONOPIN) 1 mg tablet 2019-11-01 00:00:00 2019 00:00:00 No Myoclonus 1mg Take 1 tablet by mouth 3 aydee es daily as needed (for myoclonus). [facility] SUMAtriptan (IMITREX) 50 mg tablet 2019-10-31 00:00:00 00:00:00 No Migraine without status migrainosus, not intractable, unspecified migraine type Take 1 tablet by júnior th at onset of headache. Repeat after 2 hours if needed. Maximum 200mg/24 hours.. [facility] methylPREDNISolone sodium succinate (SOLU-MEDROL) injection 40 mg 2019-10-14 08:30:00 2019-10-15 09:35:00 No Chronic midl ine low back pain, unspecified whether sciatica present 40mg [facility] traMADoL (ULTRAM) 50 mg tablet 2019-10-14 00:00:00 2019-10-19 00:00:00 No Chronic midline low back pain, unspecified whether sciatica present 100mg Take 2 tablets by mouth 2 times daily as needed for Pain. [facility] tiZANidine (ZANAFLEX) 4 mg tablet 2019-10-14 00:00:00 2019 00:00:00 No Chronic midline low back pain, unspecified whether sciatica pres ent 4mg Take 1 tablet by mouth every 6 hours as needed for up to 10 days for Muscle Spasms. [facility] mometasone (NASONEX) 50 mcg/actuation nasal spray 2019-09-27 00:00:00 Yes Allergic rhinitis due to pollen, unspecified seasonality 1{spray} QD 1 Vanleer by each nostril route daily. [facility] traMADoL (ULTRAM) 50 mg tablet 2019-09-09 00:00:00 Yes Fall 100mg Take 2 tablets by mouth 3 times daily. [facility] tiZANidine (ZANAFLEX) 4 mg tablet 2019-09-09 00:00:00 2019 23:59:00 No Chronic midline thoracic back pain 4mg Take 1 tablet by mouth 3 times daily for 30 days. [facility] SUMAtriptan (IMITREX) 50 mg tablet 2019-09-09 00:00:00 00:00:00 No Migraine without status migrainosus, not intractable, unspecified migraine type Take 1 tablet by júnior th at onset of headache. Repeat after 2 hours if needed. Maximum 200mg/24 hours.. [facility] sertraline (ZOLOFT) 50 mg tablet 2019-08-06 00:00:00 Yes MDD (major depressive disorder), recurrent severe, without psychosis 50mg QD Take 1 tablet by mouth daily. [facility] naproxen (NAPROSYN) 500 mg tablet 2019-08-01 00:00:00 Ye s Rib pain 500mg Take 1 tablet by mouth every 12 hours. [facility] acetaminophen-codeine (TYLENOL/CODEINE #3) 300-30 mg per tab let 2019-08-01 00:00:00 2020-01-20 00:00:00 No Rib pain 1{tbl} Take 1 tablet by mouth every 4 hours as needed [facility] Pain[facility] 800 mg tablet 2019-07-16 00:00: 00 2020-01-19 00:00:00 No Migraines 800mg Take 1 tablet by mouth 3 times daily. [facility] amitriptyline (ELAVIL) 25 mg tablet 2019-07-16 00:00:0 0 2019-11-15 00:00:00 No Migraines 75mg Take 3 tablets by mouth at bedtime [facility] 2019-07-12 00:00:00 Yes Fall by Mis.(Non-Drug; Combo Route) route Walker [facility] ambulation[facility] 2019-07-12 00:00:00 Yes Fall by Misc.(Non-Drug; Combo Route) route Oxygen tank at 2 liters with supplies to keep sats above 90 percent. [facility] clonazePAM (KLONOPIN) 1 mg tablet 2019-07-12 00:00:00 2019 00:00:00 No Myoclonus 1mg Take 1 tablet by mouth 3 aydee es daily as needed (for myoclonus). [facility] traMADol (ULTRAM) 50 mg tablet 2019-07-12 00:00:00 2019-08-18 00:00:00 No Fall 100mg Take 2 tablets by mouth 3 times daily. [facility] clonazePAM (KLONOPIN) 1 mg tablet 2019-07-12 00:00:00 2019 00:00:00 No Myoclonus 1mg Take 1 tablet by mouth 3 times daily as needed for Anxiety. [facility] SUMAtriptan (IMITREX) 50 mg tablet 2019-07-10 00:00:00 00:00:00 No Migraine without status migrainosus, not intractable, unspecified migraine type Take 1 tablet by júnior th at onset of headache. Repeat after 2 hours if needed. Maximum 200mg/24 hours.. [facility] tiZANidine (ZANAFLEX) 4 mg tablet 2019-07-09 00:00:00 2019 00:00:00 No Chronic midline thoracic back pain 4mg Take 1 tablet by mouth 3 times daily for 30 days. [facility] acetaminophen (TYLENOL) 500 mg tablet 2019-07-05 00:00:00 Yes Fall 1000mg Take 2 tablets by mouth every 6 hours as needed for Pain. [facility] ibuprofen (MOTRIN) 600 mg tablet 2019-07-05 00:00:00 Yes Fall 600mg Take 1 tablet by mouth every 8 hours as needed for Pain. [facility] docusate sodium (COLACE) 100 mg capsule 00:00:00 2019-08-04 23:59:00 No Fall 100mg Q.5D Take 1 capsule by mouth 2 times daily for 30 days. [facility] traMADol (ULTRAM) 50 mg tablet 2019-07-05 00:00:00 2019-06-20 4 00:00:00 No Fall 100mg Take 2 tablets by mouth every 6 hours as needed for Pain. [facility] lidocaine (LIDODERM) 5 % patch 2019-07-05 00:00:00 2019-06-20 4 23:59:00 No Fall 1{patch} Apply 1 Patch to ski n as directed every 24 hours for 7 days Leave patch(es) on for up to 12 hours, then 12 hours off.. [facility] oseltamivir (TAMIFLU) 75 mg capsule 2019-06-28 00:00:0 0 2019-07-05 00:00:00 No Influenza 75mg Q.5D Take 1 capsule by mouth 2 times daily for 5 days. [facility] cetirizine (ZYRTEC) 10 mg tablet 2019-06-10 00:00:00 Yes Allergic rhinitis due to pollen, unspecified seasonality 10mg QD Take 1 tablet b y mouth daily. [facility] mometasone (NASONEX) 50 mcg/actuation nasal spray 2019-06-10 00:00:00 2019-09-26 00:00:00 No Allergic rhinitis du e to pollen, unspecified seasonality 1{spray} QD 1 Vanleer by each nostril route daily. [facility] amitriptyline (ELAVIL) 25 mg tablet 2019-05-20 00:00:00 Yes Cervical radiculopathy 75mg Take 3 tablets by mouth at bedtime nightly. [facility] SUMAtriptan (IMITREX) 50 mg tablet 2019-05-20 00:00:00 202 00:00:00 No Migraine without status migrainosus, not intractable, unspecified migraine type Take 1 tablet by júnior th at onset of headache. Repeat after 2 hours if needed. Maximum 200mg/24 hours.. [facility] amitriptyline (ELAVIL) 75 mg tablet 2019-05-20 00:00:0 0 2019-05-20 00:00:00 No Migraines 75mg Take 1 tablet by mouth at bedtime nigh tly for 180 days. [facility] amitriptyline (ELAVIL) 75 mg tablet 2019-05-13 00:00:0 0 2019-05-20 00:00:00 No Migraines 75mg Take 1 tablet by mouth at bedtime nigh tly for 180 days. [facility] Miscellaneous Medical Supply Misc 2019 00:00:00 Yes Pain of joint of left ankle and foot by [facility].(Non-Drug; C ombo Route) route Boot for ambulation and coordination left foot. [facility] atorvastatin (LIPITOR) 40 mg tablet 2019 00:00:00 Yes Coronary artery disease involving [place] coronary artery of [place] heart without angina pectoris 40mg Take 1 tablet by mouth at bedtime nightly. [facility] prazosin (MINIPRESS) 1 mg capsule 2019 00:00:00 Yes PTSD (post- traumatic stress disorder) 1mg Take 1 capsule by mouth at bedtime nightly. [facility] sertraline (ZOLOFT) 50 mg tablet 2019 00:00:00 2019-07 00:00:00 No MDD (major depressive disorder), recurrent severe, without psychosis Take 1/2 tab by mouth daily for 1 week AND THEN take 1 tablet daily thereafter. [facility] gabapentin (NEURONTIN) 800 mg tablet 2019 00:00: 00 2019-08-04 23:59:00 No Myoclonus 800mg Take 1 tablet by mouth 3 times daily f or 90 days. [facility] tiZANidine (ZANAFLEX) 4 mg tablet 2019 00:00:00 2019 00:00:00 No Chronic midline thoracic back pain 4mg Take 1 tablet by mouth 3 times daily for 30 days. [facility] clonazePAM (KLONOPIN) 1 mg tablet 2019 00:00:00 2019 00:00:00 No Myoclonus 1mg Take 1 tablet by mouth 3 times daily as needed for Anxiety. [facility] traMADol (ULTRAM) 50 mg tablet 2019 00:00:00 2019-06-19 00:00:00 No Chronic midline thoracic back pain 50mg Take 1 tablet by mouth 3 times daily as needed for up to 30 days for Pain. [facility] SUMAtriptan (IMITREX) 50 mg tablet 2019 00:00:00 02-28-02 00:00:00 No Migraine without status migrainosus, not intractable, unspecified migraine type Take 1 tablet by júnior th at onset of headache. Repeat after 2 hours if needed. Maximum 200mg/24 hours.. [facility] amitriptyline (ELAVIL) 25 mg tablet 2019 00:00:0 0 2019-05-13 00:00:00 No Migraine without status migr ainosus, not intractable, unspecified migraine type 50mg Take 2 tablets by mouth at bedtime nightly. [facility] GABAPENTIN ORAL 2019-05-04 06:44:00 Yes Take by mouth. [facility] atorvastatin calcium (ATORVASTATIN ORAL) 2019-05-04 06:44:00 Yes Take by mouth. Darell Chao tizanidine HCl (TIZANIDINE ORAL) 2019-05-04 06:44:00 Yes Take by mouth. Darell Chao CLONAZEPAM ORAL 2019-05-04 06:44:00 Yes Take by mouth. [facility] traMADol (ULTRAM) 50 mg tablet 2019-05-04 00:00:00 2019-04-20 23:59:00 No acute pain 50mg Q6H Take 1 tablet (50 mg total) by mouth every 6 (six) hours as needed for severe pain for up to 5 days .Acute Pain. [facility] SUMAtriptan (IMITREX) 50 mg tablet 2019-04-26 00:00:00 02-27-18 00:00:00 No Migraine without status migrainosus, not intractable, unspecified migraine type Take 1 tablet by júnior th at onset of headache. Repeat after 2 hours if needed. Maximum 200mg/24 hours.. [facility] clonazePAM (KLONOPIN) 1 mg tablet 2019-03-20 00:00:00 2018 00:00:00 No Myoclonus 1mg Take 1 tablet by mouth 3 times daily as needed for Anxiety. [facility] atorvastatin (LIPITOR) 40 mg tablet 2019-03-20 00:00:0 0 2019 00:00:00 No Coronary artery disease invo lving [place] coronary artery of [place] heart without angina pectoris 40mg Take 1 tablet by mouth at bedtime nightly. [facility] amitriptyline (ELAVIL) 25 mg tablet 2019-03-20 00:00:0 0 2019 00:00:00 No Migraine without status migr ainosus, not intractable, unspecified migraine type 50mg Take 2 tablets by mouth at bedtime nightly. [facility] gabapentin (NEURONTIN) 800 mg tablet 2019-03-20 00:00: 00 2019 00:00:00 No Myoclonus 800mg Take 1 tablet by mouth 3 times daily f or 90 days. [facility] tiZANidine (ZANAFLEX) 4 mg tablet 2019-03-20 00:00:00 2018 00:00:00 No Chronic midline thoracic back pain 4mg Take 1 tablet by mouth 3 times daily for 30 days. [facility] traMADol (ULTRAM) 50 mg tablet 2019-03-20 00:00:00 2019-04-19 00:00:00 No Chronic midline thoracic back pain 50mg Take 1 tablet by mouth 3 times daily as needed for up to 30 days for Pain. [facility] SUMAtriptan (IMITREX) 50 mg tablet 2019-03-20 00:00:00 201 02-28-08 00:00:00 No Migraine without status migrainosus, not intractable, unspecified migraine type Take 1 tablet by júnior th at onset of headache. Repeat after 2 hours if needed. Maximum 200mg/24 hours.. [facility] clonazePAM (KLONOPIN) 1 mg tablet 2018-12-17 00:00:00 2019 00:00:00 No Myoclonus 1mg Take 1 tablet by mouth 3 times daily as needed for Anxiety. [facility] sertraline HCl (ZOLOFT ORAL) 2018-12-14 14:03:51 Yes Take by mouth. [facility] sertraline (ZOLOFT) 50 mg tablet 2018-11-26 00:00:00 2019-04 00:00:00 No MDD (major depressive disorder), recurrent severe, without psychosis Take 1/2 tab by mouth daily x one week then one tab daily. [facility] prazosin (MINIPRESS) 1 mg capsule 2018-11-26 00:00:00 2018 00:00:00 No PTSD (post-traumatic stress disorder) 1mg Take 1 capsule by mouth at bedtime nightly. [facility] Disabled Person Karen 2018-10-12 00:00:00 2019-07-05 00:00:00 No Chronic midline thoracic back pain Permanent disability. [facility] Disabled Person Karen 2018-07-20 00:00:00 Yes Weakness Temporary disability. [facility] Docusate Sodium (Dok) 100 Mg TABLET Docusate Sodium (Dok) 10 0 Mg TABLET 2016-03-08 07:50:00 Yes 100 Twice A Day [facility] Ondansetron (Zofran Odt) 4 Mg TAB.RAPDIS Ondansetron ( Zofran Odt) 4 Mg TAB.RAPDIS 2016-03-08 07:50:00 Yes 1 Q4-6H Prn [facility] Sennosides (Senokot) 8.6 Mg TABLET Sennosides (Senokot) 8.6 Mg TABLET 2016-03-08 07:50:00 Yes 8.6 Twice A Day [facility] Calcium Carbonate Calcium Carbonate 2016-03-02 06:58:00 Yes 500 Three Times A Day [facility] Meloxicam (Mobic*) 7.5 Mg TABLET Meloxicam (Mobic*) 7.5 Mg T ABLET 2016-03-02 06:58:00 Yes 7.5 Daily [facility] Ondansetron (Zofran Odt) 4 Mg TAB.RAPDIS Ondansetron ( Zofran Odt) 4 Mg TAB.RAPDIS 2016-03-02 06:58:00 Yes 4 Q4-6H Prn as needed for Nausea [facility] Tramadol Hcl (Ultram 50MG*) 50 Mg TAB Tramadol Hcl (Ultram 5 0MG*) 50 Mg TAB 2016-03-02 06:58:00 Yes 25 Every 6 Hours as n eeded for Pain [facility] Hydrochlorothiazide Hydrochlorothiazide 2016-03-02 06:58:00 2016-02 00:00:00 No 12.5 Daily [facility] Flexeril 10 mg oral tablet 2011-10-15 19:04:32 Yes Cruz Ivan Hanzik 10 mg, 1 tab, PO, TID, PRN, 15 tab, for spasm, Substitution Allo wed, TAB Thee Dean acetaminophen-hydrocodone 500 mg-5 mg oral tablet 19:04:30 Yes Sharri Lebronzik 1-2 tab, PO , Q4-6H, PRN, 15 tab, Pain, Substitution Allowed, Maintenance Thee Dean Colace 100 mg oral capsule 2011-10-15 19:04:24 Yes Cruz Ivan Hanzik 100 mg, 1 cap, PO, BID, PRN, 20 cap, Constipation, Substitut ion Allowed, CAP Thee Dean Fleet Enema 2011-10-15 16:00:00 No Sharri Marzena Hanzik Route: OR, ONCALL, Start date: 10/15/11 11:00:00 Me nate Dean GoLYTELY 2011-10-15 15:10:00 No Sharriraphael Toussaintice Hanzik 250 mL, Route: PO, Drug Form: PDR/REC, ONCE, Start date: 10/15/11 10:10:00, Stop date: 10/15/11 10:10:00 [facility] Valium 2011-10-15 14:25:00 No Sharri Marzena Hanzik 5 mg, 1 tab, Route: PO, Drug form: TAB, ONCE, PRN Spasm, Start date: 10/15/11 9:25:00 Thee Jermaine morphine Sulfate 2011-10-15 14:25:00 No Sharri Ivan H anzik 5 mg, 2.5 mL, Route: IVP, Drug form: INJ, ONCE, Priority: STAT, Start date: 10/15/11 9:25:00, Stop date: 10/15/11 9:25:00 [facility] Toradol 30 mg/mL injectable solution 2011-10-15 14:25:00 No Sharri Marzena Hanzik 30 mg, 1 mL, Rou te: IV, Drug form: INJ, ONCE, Start date: 10/15/11 9:25:00, Stop date: 10/15/11 9:25:00 Mem [facility] Unknown Home Medication 2011-10-15 13:48:20 Yes Substitution Allowed [facility] Vicodin 5/500 oral tablet 2011-10-15 13:48:10 Yes 1 tab, PO, Q4H, PRN, for pain, Substitution Allowed, Maintenance, TAB [facility] Alprazolam Alprazolam Yes 1 Three Times A Day for Anxiety [facility] Aspirin Aspirin Yes 1 Daily [facility] Atorvastatin Calcium Atorvastatin Calcium Yes 10 Today At 9:00PM [facility] Calcium Carbonate (Tums) 300 Mg TAB.CHEW Calcium Carbo christopher (Tums) 300 Mg TAB.CHEW Yes 500 Three Times A Day [facility] Famotidine (Pepcid) 20 Mg TABLET Famotidine (Pepcid) 20 Mg TABLET Yes 20 Twice A Day [facility] Pantoprazole Sodium (Protonix) 40 Mg TABLET. Pantopr azole Sodium (Protonix) 40 Mg TABLET. Yes 40 Daily [facility] Ranolazine (Ranexa) 500 Mg TABSR Ranolazine (Ranexa) 500 Mg TABSR Yes 1000 Twice A Day [facility] Zolpidem Tartrate (Ambien) 5 Mg TABLET Zolpidem Tartrate (Ambien ) 5 Mg TABLET Yes 5 Bedtime [facility] Amitriptyline Hcl Amitriptyline Hcl 2016-03-08 00:00:00 No 100 Bedtime [facility] Zolpidem Tartrate (Ambien) 10 Mg TABLET Zolpidem Tartrate (A mbien) 10 Mg TABLET 2016-03-08 00:00:00 No 12.5 Bedtime [facility] Albuterol Sulfate (Proair Hfa Inhaler*) 8.5 Gm INH Alb uterol Sulfate (Proair Hfa Inhaler*) 8.5 Gm INH 2016-02-29 00:00:00 No 90 Every 6 Hours as needed for Wheezing [facility] Alprazolam (Xanax) 0.5 Mg TABLET Alprazolam (Xanax) 0.5 Mg TABLE T 2016-02-29 00:00:00 No .5 Three Times A Day as needed for Anxiety [facility] Famotidine (Pepcid) 20 Mg TABLET Famotidine (Pepcid) 20 Mg TABLE T 2016-02-29 00:00:00 No 20 Twice A Day [facility] Furosemide (Lasix) 20 Mg TABLET Furosemide (Lasix) 20 Mg TABLET 2016-02-29 00:00:00 No 20 Daily [facility] Meloxicam Meloxicam 2016-02-29 00:00:00 No 7.5 Daily [facility] Zolpidem Tartrate (Ambien Cr) 12.5 Mg TABCR Zolpidem T artrate (Ambien Cr) 12.5 Mg TABCR 2016-02-29 00:00:00 No 12.5 Bedtime [facility] Fluticasone Propionate (Flovent Diskus) 50 Mcg DISK.W. DEV Fluticasone Propionate (Flovent Diskus) 50 Mcg DISK.W.DEV 2016-01-25 00:00:00 No 50 Twice A Day [facility] Ondansetron (Zofran Odt) 8 [facility] Ondansetron ( Zofran Odt) 8 Mg TAB.RAPDIS 2016-01-25 00:00:00 No 8 E very 8 Hours as needed for Nausea [facility] Varenicline Tartrate (Chantix) 0.5 Mg TABLET Varenicli ne Tartrate (Chantix) 0.5 Mg TABLET 2016-01-25 00:00:00 No .5 [facility] Immunizations Ordered Immunization Name Filled Immunization Name Date Status Comments Source PPV 23 (Pneumococcal Polysaccharide 23 Valent) 2019-06 00:00:00 Completed [facility] Influenza, Vaccine<FLUCELVAX>(Multi-Dose) 2018-06-25 00:00 :00 Completed [facility] Influenza, Injectable, Quadrivalent, Preservative Free 2017-07-20 00:00:00 Completed [facility] Tdap (Tetanus Toxoid, Reduced Diphtheria Toxoid And Acellular Pertussis, Absorbed) 2016-08-24 00:00:00 [facility] abdi Influenza, Injectable, Quadrivalent, Preservative Free 2016-05-09 00:00:00 Completed [facility] Vital Signs Vital Name Observation Time Observation Value Comments Source Weight 2020-04-07 04:16:00 155 [lb_av] [facility] BMI (Body Mass Index) 2020-04-07 04:16:00 25.0 kg/m2 [facility] Systolic blood pressure 2020-03-03 09:00:00 119 mm[Hg] [facility] Diastolic blood pressure 2020-03-03 09:00:00 73 mm[Hg] [facility] Heart rate 2020-03-03 09:00:00 79 /min [facility] Respiratory rate 2020-03-03 09:00:00 18 /min Arsenio [facility]a [facility] Oxygen saturation in Arterial blood by Pulse oximetry 03-03 09:00:00 98 /min [facility] Body temperature 2020-03-03 08:58:00 36.72 Debora Hous [facility]ita [facility] Body height 2020-03-03 08:58:00 167.6 cm [facility] Body weight 2020-03-03 08:58:00 72.576 kg [facility] BMI 2020-03-03 08:58:00 25.82 kg/m2 [facility] Systolic blood pressure 2019-10-15 09:20:00 95 mm[Hg] [facility] Diastolic blood pressure 2019-10-15 09:20:00 76 mm[Hg] [facility] Heart rate 2019-10-15 09:20:00 104 /min [facility] Body temperature 2019-10-15 09:20:00 37.28 Debora [facility] Respiratory rate 2019-10-15 09:20:00 20 /min Caleb is [facility] Body height 2019-10-15 09:20:00 167.6 cm [facility] Body weight 2019-10-15 09:20:00 74.39 kg [facility] BMI 2019-10-15 09:20:00 26.47 kg/m2 [facility] Oxygen saturation in Arterial blood by Pulse oximetry 10-14 09:20:00 100 /min [facility] Weight 2011-10-15 13:35:00 [facility] Height 2011-10-15 13:35:00 167.64 cm [facility] Procedures Procedure Date / Time Performed Performing Clinician Sour e MYCHART TEMPERATURE FLOWSHEET 2020-04-04 02:00:43 Madeline Flores [facility] MYHEALTH COVID-19 HOME MONITORING PROGRAM 2020-04-03 12:49:11 Jadiel Starkey [facility] HEMOCCULT KIT FOR SPECIMEN COLLECTION AT HOME 2020-04-02 07: 08:56 Jadiel Flores [facility] XR KNEE 4+ VW LEFT 2020-03-03 09:40:12 StanislavAmyreece Cesar [facility] XR KNEE 4+ VW RIGHT 2020-03-03 09:39:50 Katherin Westonu [facility]on [facility] HEMOCCULT KIT FOR SPECIMEN COLLECTION AT HOME 2020-02-20 12: 41:47 Jadiel Flores [facility] LIPID PROFILE 2020-02-17 10:37:00 Jadiel Flores lth UREA NITROGEN/CREATININE 2020-02-17 10:37:00 Selene Fernandez [facility] XR KNEE 3 VW LEFT 2020-02-02 06:57:37 Latonia Forte [facility] XR RIBS W PA CHEST RIGHT 2020-02-02 06:57:09 Latonia Forte XR ANKLE 3+ VW LEFT 2020-02-02 06:55:47 Latonia Forte [facility] COVID-19 QUALITATIVE PCR 2020-02-02 05:05:00 Latonia Forte CREATININE 2020-01-10 13:21:00 Selene Fernandez BMP POC 2019-08-01 16:52:00 Levon Marquez h CREATININE POC 2019-08-01 16:52:00 Levon Marquez h TROPONIN I POC 2019-08-01 16:51:00 Levon Marquezt h XRAY CHEST 2 VIEWS 2019-08-01 16:24:58 Che Page [facility] EKG PROC 12 LEAD EKG; TRACING ONLY 2019-08-01 15:46:22 Jackie Aguilar [facility] CBC/DIFF 2019-07-05 03:42:00 Abhijit Nunn h BASIC METABOLIC PANEL 2019-07-05 03:42:00 Abhijit Nunn [facility] MAGNESIUM 2019-07-05 03:42:00 Abhijit Nunnt h PHOSPHORUS 2019-07-05 03:42:00 [facility] 2019-07-05 03:42:00 Abhijit Nunn [facility] h XRAY CHEST 1 VIEW 2019-07-04 16:26:20 [facility] ECHG EKG PROC 12 LEAD EKG; TRACING ONLY 2019-07-04 15:59:22 [facility] CK, TOTAL 2019-07-04 15:21:00 [facility] TROPONIN I 2019-07-04 15:21:00 [facility] CONSULT CLINICAL CASE MANAGEMENT (RN/SW) 2019-07-04 11:58:59 [facility] CBC/DIFF 2019-07-04 04:45:00 Abhijit Nunn h BASIC METABOLIC PANEL 2019-07-04 04:45:00 Abhijit Nunn [facility] MAGNESIUM 2019-07-04 04:45:00 Abhijit Nunn h PHOSPHORUS 2019-07-04 04:45:00 [facility] 2019-07-04 04:45:00 [facility] 2019-07-03 17:37:00 [facility] CBC 2019-07-03 17:37:00 [facility] TROPONIN I 2019-07-03 17:37:00 [facility] 1 VIEW 2019-07-03 17:25:43 [facility] CONSULT CLINICAL CASE MANAGEMENT (RN/SW) 2019-07-03 15:43:46 Lindy Kim [facility] CONSULT CLINICAL CASE MANAGEMENT (RN/SW) 2019-07-03 11:12:49 Lindy Kim [facility] XRAY HUMERUS 2 VIEWS MIN 2019-07-03 09:44:31 Renita Cross [facility] XRAY SHOULDER 2 VIEWS MIN 2019-07-03 09:44:31 Renita Cross Dos Santos rris [facility] XRAY FOREARM 2 VIEWS MIN 2019-07-03 09:44:31 Renita Cross [facility] IP CONSULT WITH INSIGHT 2019-07-03 08:58:39 Azael Zamora Knoda [facility] NON-INVASIVE PROC ECHOCARDIOGRAM 2-D W/O CONTRAST (PROSOLVE) 2019-07-03 08:39:00 Abhijit Nunn [facility] INFUSION PUMP 2019-07-03 08:05:25 Kaushik [facility] XRAY CHEST 1 VIEW 2019-07-03 06:47:00 Abhijit [facility]unn [facility] TROPONIN I 2019-07-03 06:28:00 William Toro [facility] CBC/DIFF 2019-07-03 04:01:00 Abhijit Nunn [facility] BASIC METABOLIC PANEL 2019-07-03 04:01:00 Abhijit Nunn [facility] MAGNESIUM 2019-07-03 04:01:00 [facility] PHOS[facility]US 2019-07-03 04:01:00 Abhijit Nunn [facility] CBC 2019-07-03 04:01:00 Abhijit Nunn [facility] CT HEAD W/O CONTRAST 2019-07-02 13:16:00 Reshma Bojorquez [facility] CT CHEST W CONTRAST 2019-07-02 13:16:00 [facility] CT C-SPINE W/O CONTRAST 2019-07-02 13:16:00 Reshma Bojorquez arris [facility] CT ABDOMEN AND PELVIS CONTRAST 2019-07-02 13:16:00 Per Bojorquez [facility] XRAY CHEST 1 VIEW 2019-07-02 12:42:13 Reshma Bojorquez [facility] FECAL OCCULT BLOOD 2019-05-23 15:31:00 Jadiel Flores [facility] HEMOCCULT KIT FOR SPECIMEN COLLECTION AT HOME 2019-05-07 17: 27:06 Jadiel Flores [facility] XRAY ANKLE 3 VIEW MIN 2019 11:26:49 Jadiel Flores [facility] HEMOCCULT KIT FOR SPECIMEN COLLECTION AT HOME 2019 11: 14:02 Jadiel Flores [facility] CT CERVICAL SPINE WO CONTRAST 2019-05-04 08:53:[address] HEAD WO CONTRAST 2019-05-04 08:53:31 Kaden Finn XR KNEE 4+ VW LEFT 2019-05-04 08:29:54 Kaden Finn XR TIBIA FIBULA 2 VW LEFT 2019-05-04 07:29:18 Kaden Finn XR ANKLE 3+ VW LEFT 2019-05-04 07:27:32 Kaden Finn XR SHOULDER 2+ VW RIGHT 2019-05-04 07:27:05 Kaden Finn Plan of Care Planned Activity Planned Date Details Comments Source Future Scheduled Test 2021-09-30 00:00:00 Screening for macy gnant neoplasm of cervix (procedure) [code = 503635788] [facility] Scheduled Test 2021-02-16 00:00:00 CORONARY ARTERY DI SEASE AGE 18 AND UP [code = CORONARY ARTERY DISEASE AGE 18 AND UP] [facility] Scheduled Test 2020-05-23 00:00:00 Screening for macy gnant neoplasm of colon (procedure) [code = 010825938] [facility] Scheduled Test 2020-03-19 00:00:00 IMM Influenza Seas onal Mar to August (>/= 19 yrs) [code = IMM Influenza Seasonal Mar to August (>/= 19 yrs)] [facility] Scheduled Test 2020-01-18 00:00:00 INFLUENZA VACCINE [code = INFLUENZA VACCINE] [facility] Scheduled Test 2018 00:00:00 BREAST CANCER SCRE ENING [code = BREAST CANCER SCREENING] [facility] Scheduled Test 2018 00:00:00 COLONOSCOPY SCREEN ING [code = COLONOSCOPY SCREENING] [facility] Scheduled Test 2018 00:00:00 SHINGLES VACCINES (#1) [code = SHINGLES VACCINES (#1)] [facility] Scheduled Test 2008 00:00:00 Breast Cancer Scrn (Yearly) [code = Breast Cancer Scrn (Yearly)] [facility] Scheduled Test 1989 00:00:00 Screening for macy ajith neoplasm of cervix (procedure) [code = 091404417] Darell ledesma Instructions Concussion/Head Injury - Adult [facility] Encounters Start Date/Time End Date/Time Encounter Type Admission Type [facility] Care Department Encounter ID Source 2019-07-04 16:12:33 Inpatient [facility] [id number] [facility] 2019-07-03 16:56:28 Inpatient [facility] [id number] [facility] 2019-07-03 12:08:38 Inpatient [facility] [id number] [facility] 2019-07-03 09:09:43 Inpatient [facility] [id number] [facility] 2019-07-03 06:36:54 Inpatient [facility] [id number] [facility] 2019-07-02 00:00:00 Inpatient [facility] [id number] [facility] 2020-04-07 06:41:00 2020-04-07 06:45:00 Departed Emergency Room STANISLAV RASCON [facility] [id number] [facility] 2020-04-06 08:44:00 2020-04-06 10:44:00 Emergency Doreen Ward [facility] ([facility]) [id number] 2020-04-03 00:00:00 2020-04-03 00:00:00 [facility] [id number] 2020-04-03 00:00:00 2020-04-03 00:00:00 [facility] [id number] 2020-04-01 12:43:00 2020-04-01 16:02:00 Emergency Rosa Zacarias [facility] ([facility]) [id number] 2020-04-01 00:00:00 2020-04-01 00:00:00 [facility]Lucio Rae [facility] [id number] 2020-03-03 00:00:00 2020-03-03 00:00:00 Emergency CHAPIN MONROY [id number] [facility] 2020-02-02 00:00:00 2020-02-02 00:00:00 Emergency [facility] [id number] [facility] 2019-10-23 00:00:00 2019-10-23 00:00:00 Outpatient [facility] [id number] [facility] 2019-10-18 00:00:00 2019-10-18 00:00:00 Outpatient [facility] [id number] [facility] 2019-10-14 00:00:00 2019-10-14 00:00:00 Outpatient [facility] [id number] [facility] 2019-10-09 00:00:00 2019-10-09 00:00:00 Outpatient [facility] [id number] [facility] 2019-10-08 00:00:00 2019-10-08 00:00:00 Telephone Lucio Everett [facility] [id number] 2019-10-07 00:00:00 2019-10-07 00:00:00 Telephone Lucio Everett [facility] [id number] 2019-10-07 00:00:00 2019-10-07 00:00:00 [facility] [id number] 2019-09-11 00:00:00 2019-09-11 00:00:00 Outpatient [facility] [id number] [facility] 2019-09-10 00:00:00 2019-09-10 00:00:00 [facility] [id number] 2019-09-10 00:00:00 2019-09-10 00:00:00 Dimitry Lucio Everett Luiz [facility] [id number] 2019-09-10 00:00:00 2019-09-10 00:00:00 [facility] [id number] 2019-08-28 00:00:00 2019-08-28 00:00:00 Outpatient [facility] [id number] [facility] 2019-08-22 00:00:00 2019-08-22 00:00:00 Outpatient [facility] [id number] [facility] 2019-08-21 00:00:00 2019-08-21 00:00:00 Outpatient [facility] [id number] [facility] 2019-08-14 00:00:00 2019-08-14 00:00:00 Outpatient [facility] [id number] [facility] 2019-08-13 00:00:00 2019-08-13 00:00:00 Outpatient [facility] [id number] [facility] 2019-08-09 07:27:31 2019-08-09 07:27:31 Outpatient [facility] [id number] [facility] 2019-08-06 13:52:16 2019-08-06 13:52:16 Outpatient [facility] [id number] [facility] 2019-08-05 00:00:00 2019-08-05 00:00:00 Outpatient [facility] [id number] [facility] 2019-08-01 16:18:12 2019-08-01 16:18:12 Emergency [facility] [id number] [facility] 2019-08-01 15:56:53 2019-08-01 15:56:53 Emergency [facility] [id number] [facility] 2019-07-30 00:00:00 2019-07-30 00:00:00 Outpatient [facility] [id number] [facility] 2019-07-29 00:00:00 2019-07-29 00:00:00 Outpatient [facility] [id number] [facility] 2019-07-29 00:00:00 2019-07-29 00:00:00 Outpatient [facility] [id number] [facility] 2019-07-22 00:00:00 2019-07-22 00:00:00 Outpatient [facility] [id number] [facility] 2019-07-16 09:30:21 2019-07-16 09:30:21 Outpatient [facility] [id number] [facility] 2019-07-16 00:00:00 2019-07-16 00:00:00 Outpatient [facility] [id number] [facility] 2019-07-12 07:17:26 2019-07-12 07:17:26 Outpatient [facility] [id number] [facility] 2019-07-11 00:00:00 2019-07-11 00:00:00 Outpatient [facility] [id number] [facility] 2019-07-05 00:00:00 2019-07-05 00:00:00 Outpatient [facility] [id number] [facility] 2019-07-02 12:38:01 2019-07-02 12:38:01 Emergency [facility] [id number] [facility] 2019-07-02 12:33:53 2019-07-02 12:33:53 Emergency [facility] [id number] [facility] 2019-07-02 12:24:25 2019-07-02 12:24:25 Emergency [facility] [id number] [facility] 2019-07-02 12:11:30 2019-07-02 12:11:30 Inpatient [facility] [id number] [facility] 2019-07-02 06:12:00 2019-07-02 10:26:00 Departed Emergency Room 1 HINA MORALES [facility] [id number] [facility] Vikki crums - Patients [facility] 2019-06-25 10:10:54 2019-06-25 10:10:54 Outpatient [facility] [id number] [facility] 2019-06-10 07:52:37 2019-06-10 07:52:37 Outpatient [facility] [id number] [facility] 2019-06-04 00:00:00 2019-06-04 00:00:00 Outpatient [facility] [id number] [facility] 2019-06-04 00:00:00 2019-06-04 00:00:00 Outpatient [facility] [id number] [facility] 2019-05-31 00:00:00 2019-05-31 00:00:00 Outpatient [facility] [id number] [facility] 2019-05-30 00:00:00 2019-05-30 00:00:00 Outpatient [facility] [id number] [facility] 2019-05-23 15:31:12 2019-05-23 15:31:12 Outpatient [facility] [id number] [facility] 2019-05-20 08:10:44 2019-05-20 08:10:44 Outpatient [facility] [id number] [facility] 2019-05-13 10:18:21 2019-05-13 10:18:21 Outpatient [facility] [id number] [facility] 2019 11:26:23 2019 11:26:23 Outpatient [facility] [id number] [facility] 2019 10:11:15 2019 10:11:15 Outpatient [facility] [id number] [facility] 2019-05-04 00:00:00 2019-05-04 00:00:00 Emergency [facility] 064 [id number] [facility] 2019-05-03 00:00:00 2019-05-03 00:00:00 Outpatient [facility] [id number] [facility] 2019-04-17 00:00:00 2019-04-17 00:00:00 Outpatient [facility] [id number] [facility] 2019-04-17 00:00:00 2019-04-17 00:00:00 Outpatient [facility] [id number] [facility] 2019-04-16 08:54:46 2019-04-16 08:54:46 Outpatient [facility] [id number] [facility] 2019-04-16 00:00:00 2019-04-16 00:00:00 Outpatient [facility] [id number] [facility] 2019-04-04 00:00:00 2019-04-04 00:00:00 Outpatient [facility] [id number] [facility] 2019-04-04 00:00:00 2019-04-04 00:00:00 Outpatient [facility] [id number] [facility] 2019-03-20 07:17:09 2019-03-20 07:17:09 Outpatient [facility] [id number] [facility] 2019-03-13 08:09:51 2019-03-13 08:09:51 Outpatient [facility] [id number] [facility] 2019-03-12 13:41:31 2019-03-12 13:41:31 Outpatient [facility] [id number] [facility] 2019-03-08 00:00:00 2019-03-08 00:00:00 Outpatient [facility] [id number] [facility] 2019-03-05 00:00:00 2019-03-05 00:00:00 Outpatient [facility] [id number] [facility] 2019-03-04 00:00:00 2019-03-04 00:00:00 Outpatient [facility] [id number] [facility] 2019-02-28 00:00:00 2019-02-28 00:00:00 Outpatient [facility] [id number] [facility] 2019-02-25 00:00:00 2019-02-25 00:00:00 Outpatient [facility] [id number] [facility] 2019-02-22 08:25:19 2019-02-22 08:25:19 Outpatient [facility] [id number] [facility] 2019-02-21 00:00:00 2019-02-21 00:00:00 Outpatient [facility] [id number] [facility] 2019-02-15 09:38:38 2019-02-15 09:38:38 Outpatient [facility] [id number] [facility] 2019-02-08 00:00:00 2019-02-08 00:00:00 Outpatient [facility] [id number] [facility] 2019-02-07 00:00:00 2019-02-07 00:00:00 Outpatient [facility] [id number] [facility] 2019-01-30 00:00:00 2019-01-30 00:00:00 Outpatient [facility] [id number] [facility] 2019-01-30 00:00:00 2019-01-30 00:00:00 Outpatient [facility] [id number] [facility] 2019-01-29 00:00:00 2019-01-29 00:00:00 Outpatient [facility] [id number] [facility] 2019-01-28 09:17:31 2019-01-28 09:17:31 Outpatient [facility] [id number] [facility] 2019-01-28 08:01:09 2019-01-28 08:01:09 Outpatient [facility] [id number] [facility] 2019-01-28 00:00:00 2019-01-28 00:00:00 Outpatient [facility] [id number] [facility] 2019-01-22 09:31:00 2019-01-22 09:31:00 Emergency [facility] [id number] [facility] 2019-01-22 00:00:00 2019-01-22 00:00:00 Outpatient [facility] [id number] [facility] 2019-01-18 00:00:00 2019-01-18 00:00:00 Outpatient [facility] [id number] [facility] 2019-01-17 00:00:00 2019-01-17 00:00:00 Outpatient [facility] [id number] [facility] 2019-01-16 07:56:28 2019-01-16 07:56:28 Outpatient [facility] [id number] [facility] 2019-01-15 07:43:01 2019-01-15 07:43:01 Outpatient [facility] [id number] [facility] 2019-01-10 00:00:00 2019-01-10 00:00:00 Outpatient [facility] [id number] [facility] 2019-01-10 00:00:00 2019-01-10 00:00:00 Outpatient [facility] [id number] [facility] 2019-01-09 00:00:00 2019-01-09 00:00:00 Outpatient [facility] [id number] [facility] 2019-01-08 00:00:00 2019-01-08 00:00:00 Outpatient [facility] [id number] [facility] 2019-01-07 08:46:53 2019-01-07 08:46:53 Outpatient [facility] [id number] [facility] 2019-01-03 00:00:00 2019-01-03 00:00:00 Outpatient [facility] [id number] [facility] 2019-01-02 00:00:00 2019-01-02 00:00:00 Outpatient [facility] [id number] [facility] 2019-01-01 00:00:00 2019-01-01 00:00:00 Outpatient [facility] [id number] [facility] 2018-12-31 14:13:52 2018-12-31 14:13:52 Outpatient [facility] [id number] [facility] 2018-12-31 13:02:48 2018-12-31 13:02:48 Outpatient [facility] [id number] [facility] 2018-12-21 00:00:00 2018-12-21 00:00:00 Outpatient [facility] [id number] [facility] 2018-12-21 00:00:00 2018-12-21 00:00:00 Outpatient [facility] [id number] [facility] 2018-12-19 00:00:00 2018-12-19 00:00:00 Outpatient [facility] [id number] [facility] 2018-12-18 00:00:00 2018-12-18 00:00:00 Outpatient [facility] [id number] [facility] 2018-12-17 15:33:02 2018-12-17 15:33:02 Outpatient [facility] [id number] [facility] 2018-12-14 00:00:00 2018-12-14 00:00:00 Outpatient [facility] [id number] [facility] 2018-12-11 00:00:00 2018-12-11 00:00:00 Outpatient [facility] [id number] [facility] 2018-12-10 00:00:00 2018-12-10 00:00:00 Outpatient [facility] [id number] [facility] 2018-12-10 00:00:00 2018-12-10 00:00:00 Patient Secure Lucio Lerma [facility] [id number] 2018-12-05 00:00:00 2018-12-05 00:00:00 Outpatient [facility] [id number] [facility] 2018-12-03 00:00:00 2018-12-03 00:00:00 Outpatient [facility] [id number] [facility] 2018-11-26 08:24:49 2018-11-26 08:24:49 Outpatient [facility] [id number] [facility] 2018-11-23 07:54:48 2018-11-23 07:54:48 Outpatient [facility] [id number] [facility] 2018-11-22 00:00:00 2018-11-22 00:00:00 Outpatient [facility] [id number] [facility] 2018-11-20 00:00:00 2018-11-20 00:00:00 Outpatient [facility] [id number] [facility] 2018-11-16 10:18:27 2018-11-16 10:18:27 Outpatient [facility] [id number] [facility] 2018-11-16 00:00:00 2018-11-16 00:00:00 Outpatient [facility] [id number] [facility] 2018-11-16 00:00:00 2018-11-16 00:00:00 Outpatient [facility] [id number] [facility] 2018-11-15 00:00:00 2018-11-15 00:00:00 Outpatient [facility] [id number] [facility] 2018-11-14 00:00:00 2018-11-14 00:00:00 Outpatient [facility] [id number] [facility] 2018-11-13 00:00:00 2018-11-13 00:00:00 Outpatient [facility] [id number] [facility] 2018-11-06 15:33:56 2018-11-06 15:33:56 Outpatient [facility] [id number] [facility] 2018-11-05 00:00:00 2018-11-05 00:00:00 Outpatient [facility] [id number] [facility] 2018-11-02 09:58:31 2018-11-02 09:58:31 Outpatient [facility] [id number] [facility] 2018-10-31 07:07:01 2018-10-31 07:07:01 Outpatient [facility] [id number] [facility] 2018-10-30 00:00:00 2018-10-30 00:00:00 Outpatient [facility] [id number] [facility] 2018-10-26 00:00:00 2018-10-26 00:00:00 Outpatient [facility] [id number] [facility] 2018-10-24 00:00:00 2018-10-24 00:00:00 Outpatient [facility] [id number] [facility] 2018-10-24 00:00:00 2018-10-24 00:00:00 Outpatient [facility] [id number] [facility] 2018-10-17 09:48:19 2018-10-17 09:48:19 Outpatient [facility] [id number] [facility] 2018-10-12 09:58:31 2018-10-12 09:58:31 Outpatient [facility] [id number] [facility] 2018-10-11 07:26:34 2018-10-11 07:26:34 Outpatient [facility] [id number] [facility] 2018-10-08 00:00:00 2018-10-08 00:00:00 Outpatient [facility] [id number] [facility] 2018-10-04 10:48:51 2018-10-04 10:48:51 Outpatient [facility] [id number] [facility] 2018-10-03 13:54:07 2018-10-03 13:54:07 Outpatient [facility] [id number] [facility] 2018-10-03 13:37:18 2018-10-03 13:37:18 Outpatient [facility] [id number] [facility] 2018-10-02 19:00:54 2018-10-02 19:00:54 Emergency [facility] [id number] [facility] 2018-10-02 18:17:48 2018-10-02 18:17:48 Emergency [facility] [id number] [facility] 2018-10-02 16:19:07 2018-10-02 16:19:07 Outpatient [facility] [id number] [facility] 2018-10-02 09:55:17 2018-10-02 09:55:17 Outpatient [facility] [id number] [facility] 2018-10-02 00:00:00 2018-10-02 00:00:00 Outpatient [facility] [id number] [facility] 2018-09-30 14:51:52 2018-09-30 14:51:52 Emergency [facility] [id number] [facility] 2018-09-30 12:57:07 2018-09-30 12:57:07 Emergency [facility] [id number] [facility] 2018-09-30 10:31:56 2018-09-30 10:31:56 Outpatient [facility] [id number] [facility] 2018-09-30 10:31:51 2018-09-30 10:31:51 Outpatient [facility] [id number] [facility] 2018-09-25 08:12:04 2018-09-25 08:12:04 Outpatient [facility] [id number] [facility] 2018-09-20 00:00:00 2018-09-20 00:00:00 Outpatient [facility] [id number] [facility] 2018-09-12 10:10:04 2018-09-12 10:10:04 Outpatient [facility] [id number] [facility] 2018-09-11 04:09:00 2018-09-11 04:09:00 Emergency [facility] [id number] [facility] 2018-09-03 14:57:10 2018-09-03 14:57:10 Outpatient [facility] [id number] [facility] 2018-08-31 00:00:00 2018-08-31 00:00:00 Outpatient [facility] [id number] [facility] 2018-08-30 00:00:00 2018-08-30 00:00:00 Outpatient [facility] [id number] [facility] 2018-08-23 00:00:00 2018-08-23 00:00:00 Outpatient [facility] [id number] [facility] 2018-08-21 11:27:12 2018-08-21 11:27:12 Outpatient [facility] [id number] [facility] 2018-08-17 15:44:33 2018-08-17 15:44:33 Outpatient [facility] [id number] [facility] 2018-08-16 00:00:00 2018-08-16 00:00:00 Outpatient [facility] [id number] [facility] 2018-08-01 08:11:20 2018-08-01 08:11:20 Outpatient [facility] [id number] [facility] 2018-07-26 00:00:00 2018-07-26 00:00:00 Outpatient [facility] [id number] [facility] 2018-07-20 10:45:36 2018-07-20 10:45:36 Outpatient [facility] [id number] [facility] 2018-07-18 00:00:00 2018-07-18 00:00:00 Outpatient [facility] [id number] [facility] 2018-07-17 00:00:00 2018-07-17 00:00:00 Outpatient [facility] [id number] [facility] 2018-07-16 00:00:00 2018-07-16 00:00:00 Outpatient [facility] [id number] [facility] 2018-07-13 00:00:00 2018-07-13 00:00:00 Outpatient [facility] [id number] [facility] 2018-07-12 00:00:00 2018-07-12 00:00:00 Outpatient [facility] [id number] [facility] 2018-07-06 00:00:00 2018-07-06 00:00:00 Outpatient [facility] [id number] [facility] 2018-07-05 11:31:04 2018-07-05 11:31:04 Outpatient [facility] [id number] [facility] 2018-07-05 00:00:00 2018-07-05 00:00:00 Outpatient [facility] [id number] [facility] 2018-07-03 06:38:01 2018-07-03 06:38:01 Outpatient [facility] [id number] [facility] 2018-06-26 07:57:27 2018-06-26 07:57:27 Outpatient [facility] [id number] [facility] 2018-06-26 07:46:01 2018-06-26 07:46:01 Outpatient [facility] [id number] [facility] 2018-06-25 08:50:51 2018-06-25 08:50:51 Outpatient [facility] [id number] [facility] 2018-06-25 00:00:00 2018-06-25 00:00:00 Outpatient [facility] [id number] [facility] 2018-06-21 00:00:00 2018-06-21 00:00:00 Outpatient [facility] [id number] [facility] 2018-06-18 12:52:36 2018-06-18 12:52:36 Emergency [facility] [id number] [facility] 2018-05-20 09:50:20 2018-05-20 09:50:20 Emergency [facility] [id number] [facility] 2018-05-20 09:04:43 2018-05-20 09:04:43 Emergency [facility] [id number] [facility] 2018-05-20 00:00:00 2018-05-20 00:00:00 Emergency [facility] [id number] [facility] 2017-08-01 04:46:00 2017-08-01 07:50:[address] [facility] [id number] [facility] Results Test Description Test Time Test Comments Results Result Comments Source CT PELVIS WITHOUT-HOPD 2020-04-07 06:13:[address] [facility] : 1970 Sex: F [place] [address] Patient Name: PHILLY OSMAN MR #: [id number] : 1970 Age/Sex: 49/F Req #: [id number] Adm Physician: Ordered by: STANISLAV RASCON MD Report #: [id number] Location: [facility] Room/Bed: Procedure: [id number] HOPD/CT PELVIS WITHOUT-HOPD Exam Date: 04/07/20 Exam Time: 0451 REPORT STATUS: Signed EXAM: CT Pelvis WITHOUT contrast INDICATION: Fall, trauma COMPARISON: None. TECHNIQUE: Pelvis were scanned utilizing a multidetector helical scanner from the iliac crest to the pubic symphysis without administration of IV contrast. Coronal and sagittal reformations were obtained. Routine protocol was performed. IV CONTRAST: None ORAL CONTRAST: None COMPLICATIONS: None RADIATION DOSE: Total DLP: 419 mGy*cm Estimated effective dose: (DLP x 0.015 x size factor) mSv CTDIvol has been reviewed. It is below the limits set by the Radiation Protocol Committee (RPC). Dose modulation, iterative reconstruction, and/or weight based adjustment of the mA/kV was utilized to reduce the radiation dose to as low as reasonably achievable. FINDINGS: LINES and TUBES: None. GI TRACT: No abnormal distention, wall thickening, or evidence of bowel obstruction. PELVIC ORGANS/BLADDER: Hysterectomy. No adnexal masses. Urinary bladder unremarkable. LYMPH NODES: No lymphadenopathy. VESSELS: Unremarkable. PERITONEUM / RETROPERITONEUM: No free air or fluid. BONES: L5-S1 degenerative disc changes with height loss, posterior disc osteophytes and foraminal stenosis. SOFT TISSUES: Unremarkable. IMPRESSION: No acute traumatic abnormality. There is L5-S1 degenerative disc changes with disc height loss, posterior disc osteophytes and foraminal stenosis. Signed by: Braxton East DO on 04/07/2020 6:18 AM Dictated By: BRAXTON EAST DO 7 Transcribed By: VIRI on 04/07/20617 COPY TO: STANISLAV RASCON MD CT C-SPINE W/O - HOPD 2020-04-07 05:30:00 [facility] 1970 Sex: F [place] [address] Patient Name: PHILLY OSMAN MR #: [id number] : 1970 Age/Sex: 49/F Req #: [id number] Adm Physician: Ordered by: STANISLAV RASCON MD Report #: [id number] Location: [facility] Room/Bed: Procedure: [id number] HOPD/CT C-SPINE W/O - HOPD Exam Date: 04/07/20 Exam Time: 0451 REPORT STATUS: Signed History: Trauma, fall Comparison studies: None Technique: Axial images were obtained through the cervical region. Coronal and sagittal images reconstructed from the axial data. Dose modulation, iterative reconstruction, and/or weight based adjustment of the mA/kV was utilized to reduce the radiation dose to as low as reasonably achievable. Intravenous contrast: None Findings: Atlantoaxial articulation: Intact. Alignment: Normal lordosis. No scoliosis. Cervicomedullary junction: No abnormalities. The foramen magnum is patent. Soft tissues: No gross acute abnormalities. Vertebrae: No fractures, infection or neoplasm. Degenerative changes: Multilevel anterior marginal osteophytes indent the prevertebral soft tissues, the largest of these is at C5-C6. Multilevel disc degeneration; mild from C2-C3 through C4- C5, moderate at C5-C6 and C6-C7 and mild at C7-T1. Moderate canal stenosis C5- C6 and at C6-C7 due to disc osteophyte complexes. Multilevel uncovertebral and facet arthrosis result in multilevel foraminal stenosis which is moderate on the right and mild left at C4-C5 and severe bilaterally at C5-C6 and at C6-C7. IMPRESSION: 1. No cervical spine fracture or subluxation. 2. Multilevel degenerative changes as described. 3. Ligament, spinal cord and or vascular abnormalities cannot be excluded on the basis of this examination Signed by: Dr. Phyllis Zamora M.D. on 04/07/2020 5:37 AM Dictated By: PHYLLIS ZAMORA MD 6 Transcribed By: VIRI on 04/07/20536 COPY TO: STANISLAV WRIGHT MD CT BRAIN -[facility] 2020-04-07 05:26:00 [facility] CENTERName: PHILLY OSMAN : 1970 Sex: F [facility] [address] [place] [address] Patient Name: PHILLY OSMAN MR #: [id number] : 1970 Age/Sex: 49/F Req #: [id number] Adm Physician: Ordered by: STANISLAV RASCON MD Report #: [id number] Location: [facility] Room/Bed: Procedure: [id number] HOPD/CT BRAIN WO-HOPD Exam Date: 04/07/20 Exam Time: 446 REPORT STATUS: Signed Exam: Head CT without contrast History: Trauma, fall Comparison studies: Prior head CT of 03/06/2016 is unavailable on the PACS for the time of comparison. Technique: Axial images were obtained from the skull base to the vertex. Coronal and sagittal images reconstructed from the axial data. Dose modulation, iterative reconstruction, and/or weight based adjustment of the mA/kV was utilized to reduce the radiation dose to as low as reasonably achievable. Radiation dose: Total DLP: 969 mGy*cm. Estimated effective dose: DLP x 0.015 Intravenous contrast: None Findings: Scalp: No abnormalities. Bones: No fractures, blastic or lytic lesions. Brain sulci: Appropriate for age. Ventricles: Normal in size and configuration. No hydrocephalus. Extra-axial spaces: No masses, no fluid collection. Parenchyma: No mass, acute hemorrhage or acute or chronic cortical insults. A few subtle hypodensities in the supratentorial white matter are nonspecific but are most compatible with chronic microvascular ischemic changes. Sellar/suprasellar region: No abnormalities. Craniocervical junction: Patent foramen magnum. No Chiari one malformation. Middle ear cavities and mastoids: Clear. Included paranasal sinuses: Clear. IMPRESSION: 1. No acute abnormalities. 2. Mild chronic microvascular ischemic changes. Signed by: Dr. Phyllis Zamora M.D. on 04/07/2020 5:30 AM Dictated By: PHYLLIS ZAMORA MD 9 Transcribed By: VIRI on 04/07/20529 COPY TO: STANISLAV RASCON MD XR Knee 4+ Vw Left 2020-03-03 09:42:21 Hm Interf dragan, Radiology Results 03/03/2020 9:45 AM CDTPROCEDURE: XR KNEE 4 VW LEFTCLINICAL HISTORY: fallCOMPARISON: None.TECHNIQUE: Left knee, THREE views were obtained.FINDINGS: No fracture, dislocation, bone destruction, or periosteal reaction is demonstrated of the bones about the knee. If the patient's symptoms persist or deteriorate, a follow-up radiograph in 10 days time is recommended, if clinically indicated.IMPRESSION: 1. No acute fracture or subluxation. 2. There is no acute bony abnormality.[id number] Catalina ruano [facility] XR Knee 4+ Vw Right 2020-03-03 09:40:57 Hm Inter face, Radiology Results 03/03/2020 9:44 AM CDTPROCEDURE: XR KNEE 4 VW RIGHTCLINICAL HISTORY: fallCOMPARISON: None.TECHNIQUE: Right knee, THREE views were obtained.FINDINGS: No fracture, dislocation, bone destruction, or periosteal reaction is demonstrated of the bones about the knee. Small osteophytes are seen along the superior aspect of the patella.If the patient's symptoms persist or deteriorate, a follow-up radiograph in 10 days time is recommended, if clinically indicated.IMPRESSION: 1. No acute fracture or subluxation. 2. There are minimal changes of osteoarthritis.[id number] Sukhi rincon [employer] BUN/CREATININE 2020-02-17 16:30:00 Test Item Urea Nitrogen (test code = 26488732) 15.0 mg/dL 7-25 Creatinine (test code = 92319765) 0.7 mg/dL 0.6-1.2 GFR, Estimated (test code = 85677402) 88 >=90 mL/min/1.73 m2 L Lab Interpretation (test code = 74543-5) [id number] 16:30:00* Test Item Value Reference Range Interpretation Comments Cholesterol (test code = 2093-3) 245.0 mg/dL <=200.0 H Triglyceride (test code = 21299633) 255 mg/dL <150 H HDL (test code = 2085-9) 42.0 mg/dL See Reference Range Narrative . LDL (test code = 30002-9) 152 mg/dL <100 H Op timal: < 100.0 mg/dLNear Optimal: 120-129 mg/dLBorderline: 130-159 mg/dLHigh: 160-189 mg/dLVery High: >=190 mg/dL Patient Fasting? (test code = 34399898) Yes Lab Interpretation (test code = 46031-0) [facility]normal [facility] [id number] 17:02:14* Test Item Value Reference Range Interpretation Comments Interpretation (test code = 9698725) Negative results do not preclude 2019-nCoV infection and should not be used as the sole basis for treatment or other patient management decisions. Negative results must be combined with clinical observations, patient history, and epidemiological information. COVID-19 qualitative PCR result (test code = 55888-2) Not-Detect ed Not-Detected COVID-19 qualitative PCR (test code = 7070) See link below for P DF Lab Report [facility] Ribs W Pa Chest [id number] 07:00:53Hm Interface, Radiology Results 02/02/2020 7:03 AM CDTEXAMINATION: XR RIBS W PA CHEST RIGHTCLINICAL HISTORY: Rib pain fx suspectedTECHNIQUE:Rib seriesCOMPARISON: April 07, 2005IMPRESSION:1.Healed fractures with periosteal reaction and callus formation involving the fifth sixth seventh and eighth right posterior lateral ribs.2.Lungs are clear. Heart size is normal..3.No pneumotho rax.4.Cholecystectomy.[facility] MethodistXR Knee 3 Vw [id number] 06:58:52Hm Interface, Radiology Results Incoming - 02/02/2020 7:01 AM CDTEXAMINATION: XR KNEE 3 VW LEFTCLINICAL HISTORY: Knee pain initial examCOMPARISON: None.IMPRESSION:1.There is no evidence of left knee fracture, dislocation, or joint effusion. Bone mineralization is normal.[facility] Ankle 3+ Vw [id number] 06:58:21Hm Interface, Radiology Results Incoming - 02/02/2020 7:01 AM CDTEXAMINATION: XR ANKLE 3 VW LEFTCLINICAL HISTORY: Ankle pain initial examCOMPARISON: Left ankle radiographs 05/04/2019IMPRESSION:There is no evidence of acute left ankle fracture or dislocation. Mild widening of the medial clear space which may be seen with ligamentous injury.[id number] RkcecfkxkYnmfpuuaqe3280-39-22 20:27:00* Test Item Value Reference Range Interpretation Comments Creatinine (test code = 09090893) 0.7 mg/dL 0.6-1.2 GFR, Estimated (test code = 03609743) 88 >=90 mL/min/1.73 m2 L Lab Interpretation (test code = 38779-7) Abnormal [facility]INALYSIS [id number] 02:01:00* Test Item Value Reference Range Interpretation Comments UA COLOR (test code = COLU) COLORLESS YELLOW A UA APPEARANCE (test code = APPU) CLEAR CLEAR UA GLUCOSE DIPSTICK (test code = DGLUU) NEGATIVE mg/dL NEGATIVE UA BILIRUBIN DIPSTICK (test code = BILU) NEGATIVE mg/dL NEGATIVE UA KETONE DIPSTICK (test code = KETU) NEGATIVE mg/dL NEGATIVE UA SPECIFIC GRAVITY (test code = SGU) 1.002 1.001-1.035 UA BLOOD DIPSTICK (test code = PREETI) Negative mg/dL NEGATIVE UA PH DIPSTICK (test code = VALERIA) 6.5 5.0-8.0 UA PROTEIN DIPSTICK (test code = PROU) NEGATIVE mg/dL NEGATIVE UA UROBILINIOGEN DIPSTICK (test code = URO) Normal mg/dL NEGATIVE UA NITRITE DIPSTICK (test code = LEE) NEGATIVE NEGATIVE UA LEUKOCYTE ESTERASE W REFLEX (test code = LEUUR) NEGATIVE Shiloh/uL NEGATIVE UA WBC (test code = WBCU) 0-5 per HPF 0-5 UA RBC (test code = RBCU) 0-2 #/HPF 0-5 UA EPITHELIAL CELLS (test code = EPIU) None seen per HPF FEW UA BACTERIA (test code = BACU) FEW #/HPF NONE A Urine Source? Clean CatchDRUGS OF ABUSE SCREEN [id number] 02:01:00* Test Item Value Reference Range Interpretation Comments URN COCAINE (test code = COCAURN) NEGATIVE <300 ng/mL URN CANNABINOIDS (test code = CANNABURN) NEGATIVE <50 ng/mL URN AMPHETAMINE (test code = AMPHETURN) NEGATIVE <1000 ng/mL URN BARBITURATE (test code = BARBITURN) NEGATIVE <200 ng/mL URN BENZODIAZEPINE (test code = BENZOURN) NEGATIVE <200 ng/mL URN OPIATES (test code = OPIATURN) NEGATIVE <300 ng/mL URN PHENCYCLIDINE (PCP) (test code = PHENCURN) NEGATIVE <25 ng/ mL URN METHADONE (test code = METHAURN) NEGATIVE <300 ng/mL Urine Source? Clean CatchBASIC METABOLIC [id number] 01:46:00* Test Item Value Reference Range Interpretation Comments SODIUM (test code = NA) 146 mmol/L 136-145 H POTASSIUM (test code = K) 3.4 mmol/L 3.5-5.1 L CHLORIDE (test code = CL) 111.0 mmol/L 98-107 H CARBON DIOXIDE (test code = CO2) 28.0 mmol/L 21-32 N ANION GAP (test code = GAP) 10.4 10-20 N GLUCOSE (test code = GLU) 115 mg/dL 74-106 H BLOOD UREA NITROGEN (test code = BUN) 7 mg/dL 7-18 N GLOMERULAR FILTRATION RATE (test code = GFR) > 60 mL/min >=60 Estimated GFR by using Modified MDRD formula.Chronic kidney disease is defined as either kidney damageor GFR <60 mL/min/1.73 m2 for >3 months. CREATININE (test code = CREAT) 0.60 mg/dL 0.55-1.02 N Note change in reference range due to change in reagent. BUN/CREATININE RATIO (test code = BUN/CREA) 11.7 10-20 N CALCIUM (test code = CA) 9.5 mg/dL 8.5-10.1 N HEPATIC FUNCTION [id number] 01:46:00* Test Item Value Reference Range Interpretation Comments TOTAL PROTEIN (test code = PROT) 8.3 gram/dL 6.4-8.2 H ALBUMIN (test code = ALB) 4.3 g/dL 3.4-5.0 N GLOBULIN (test code = GLOB) 4.0 gram/dL 2.7-4.2 N ALBUMIN/GLOBULIN RATIO (test code = A/G) 1.1 0.75-1.50 N BILIRUBIN TOTAL (test code = BILT) 0.20 mg/dL 0.0-1.0 N BILIRUBIN DIRECT (test code = BILD) 0.07 mg/dL 0.0-0.20 N SGOT/AST (test code = AST) 16 IUnit/L 15-37 N SGPT/ALT (test code = ALT) 27 IUnit/L 12-78 N ALKALINE PHOSPHATASE TOTAL (test code = ALKP) 111 IUnit/L 45-117 N Note change in reference range due to change in reagent. HCG SERUM [id number] 01:46:00* Test Item Value Reference Range Interpretation Comments HCG SERUM QUAL (test code = HCGQL) NEGATIVE NEGATIVE This HCGQL test is NOT applicable for MALE patients.Check with nurse about probable order error.If Tumor Marker Test needed, nurse should order test "HCGTU"(Test #550.17074) [id number] 01:46:00* Test Item Value Reference Range Interpretation Comments ACETAMINOPHEN (test code = ACET) < 10 mcg/mL 10-30 L A RANGE OF 10-30 mcg/mL IS A THERAPEUTIC RANGE. TOXIC CONCENTRATIONS: >150 mcg/mL AT 4 HOURS AFTER INGESTION >= 50 mcg/mL AT 12 HOURS AFTER INGESTION [id number] 01:46:00* Test Item Value Reference Range Interpretation Comments SALICYLATE (test code = FORREST) 2.5 mg/dL 2.8-20.0 L [id number] 01:46:00* Test Item Value Reference Range Interpretation Comments ALCOHOL (test code = ALC) 234 mg/dL 0.0-3.0 H -- INTERPRETIVE DATA NOTE: POSITIVE SCREENING RESULTS SHOULD BE CONSIDERED PRESUMPTIVE.WHEN COLLECTED FOR MEDICAL PURPOSES ONLY. SPECIMEN WILL NOTBE COLLECTED BY CHAIN OF CUSTODY.IF A CONFIRMATION OF POSITIVE RESULTS IS DESIRED, ACONFIRMATION TEST MUST BE REQUESTED BY THE PHYSICIAN AT ANADDITIONAL CHARGE TO THE PATIENT. URINALYSIS [id number] 01:42:00* Test Item Value Reference Range Interpretation Comments UA COLOR (test code = COLU) COLORLESS YELLOW A UA APPEARANCE (test code = APPU) CLEAR CLEAR UA GLUCOSE DIPSTICK (test code = DGLUU) NEGATIVE mg/dL NEGATIVE UA BILIRUBIN DIPSTICK (test code = BILU) NEGATIVE mg/dL NEGATIVE UA KETONE DIPSTICK (test code = KETU) NEGATIVE mg/dL NEGATIVE UA SPECIFIC GRAVITY (test code = SGU) 1.002 1.001-1.035 UA BLOOD DIPSTICK (test code = PREETI) Negative mg/dL NEGATIVE UA PH DIPSTICK (test code = VALERIA) 6.5 5.0-8.0 UA PROTEIN DIPSTICK (test code = PROU) NEGATIVE mg/dL NEGATIVE UA UROBILINIOGEN DIPSTICK (test code = URO) Normal mg/dL NEGATIVE UA NITRITE DIPSTICK (test code = LEE) NEGATIVE NEGATIVE UA LEUKOCYTE ESTERASE W REFLEX (test code = LEUUR) NEGATIVE Shiloh/uL NEGATIVE UA WBC (test code = WBCU) 0-5 per HPF 0-5 UA RBC (test code = RBCU) 0-2 #/HPF 0-5 UA EPITHELIAL CELLS (test code = EPIU) None seen per HPF FEW UA BACTERIA (test code = BACU) FEW #/HPF NONE A Urine Source? Clean CatchDRUGS OF ABUSE SCREEN [id number] 01:42:00* Test Item Value Reference Range Interpretation Comments URN COCAINE (test code = COCAURN) <300 ng/mL URN CANNABINOIDS (test code = CANNABURN) <50 ng/mL URN AMPHETAMINE (test code = AMPHETURN) <1000 ng/mL URN BARBITURATE (test code = BARBITURN) <200 ng/mL URN BENZODIAZEPINE (test code = BENZOURN) <200 ng/mL URN OPIATES (test code = OPIATURN) <300 ng/mL URN PHENCYCLIDINE (PCP) (test code = PHENCURN) <25 ng/ mL URN METHADONE (test code = METHAURN) <300 ng/mL Urine Source? Clean CatchBASIC METABOLIC [id number] 01:40:00* Test Item Value Reference Range Interpretation Comments SODIUM (test code = NA) 146 mmol/L 136-145 H POTASSIUM (test code = K) 3.4 mmol/L 3.5-5.1 L CHLORIDE (test code = CL) 111.0 mmol/L 98-107 H CARBON DIOXIDE (test code = CO2) mmol/L 21-32 ANION GAP (test code = GAP) 10-20 GLUCOSE (test code = GLU) mg/dL 74-106 BLOOD UREA NITROGEN (test code = BUN) mg/dL 7-18 GLOMERULAR FILTRATION RATE (test code = GFR) mL/min >=60 CREATININE (test code = CREAT) mg/dL 0.55-1.02 BUN/CREATININE RATIO (test code = BUN/CREA) 10-20 CALCIUM (test code = CA) mg/dL 8.5-10.1 HEPATIC FUNCTION [id number] 01:40:00* Test Item Value Reference Range Interpretation Comments TOTAL PROTEIN (test code = PROT) gram/dL 6.4-8.2 ALBUMIN (test code = ALB) g/dL 3.4-5.0 GLOBULIN (test code = GLOB) gram/dL 2.7-4.2 ALBUMIN/GLOBULIN RATIO (test code = A/G) 0.75-1.50 BILIRUBIN TOTAL (test code = BILT) mg/dL 0.0-1.0 BILIRUBIN DIRECT (test code = BILD) mg/dL 0.0-0.20 SGOT/AST (test code = AST) IUnit/L 15-37 SGPT/ALT (test code = ALT) IUnit/L 12-78 ALKALINE PHOSPHATASE TOTAL (test code = ALKP) IUnit/L 45-117 HCG SERUM [id number] 01:40:00* Test Item Value Reference Range Interpretation Comments HCG SERUM QUAL (test code = HCGQL) NEGATIVE NEGATIVE This HCGQL test is NOT applicable for MALE patients.Check with nurse about probable order error.If Tumor Marker Test needed, nurse should order test "HCGTU"(Test #550.27378) [id number] 01:40:00* Test Item Value Reference Range Interpretation Comments ACETAMINOPHEN (test code = ACET) mcg/mL 10-30 [id number] 01:40:00* Test Item Value Reference Range Interpretation Comments SALICYLATE (test code = FORREST) mg/dL 2.8-20.0 [id number] 01:40:00* Test Item Value Reference Range Interpretation Comments ALCOHOL (test code = ALC) mg/dL 0-3 BASIC METABOLIC [id number] 01:37:00* Test Item Value Reference Range Interpretation Comments SODIUM (test code = NA) mmol/L 136-145 POTASSIUM (test code = K) mmol/L 3.5-5.1 CHLORIDE (test code = CL) mmol/L 98-107 CARBON DIOXIDE (test code = CO2) mmol/L 21-32 ANION GAP (test code = GAP) 10-20 GLUCOSE (test code = GLU) mg/dL 74-106 BLOOD UREA NITROGEN (test code = BUN) mg/dL 7-18 GLOMERULAR FILTRATION RATE (test code = GFR) mL/min >=60 CREATININE (test code = CREAT) mg/dL 0.55-1.02 BUN/CREATININE RATIO (test code = BUN/CREA) 10-20 CALCIUM (test code = CA) mg/dL 8.5-10.1 HEPATIC FUNCTION [id number] 01:37:00* Test Item Value Reference Range Interpretation Comments TOTAL PROTEIN (test code = PROT) gram/dL 6.4-8.2 ALBUMIN (test code = ALB) g/dL 3.4-5.0 GLOBULIN (test code = GLOB) gram/dL 2.7-4.2 ALBUMIN/GLOBULIN RATIO (test code = A/G) 0.75-1.50 BILIRUBIN TOTAL (test code = BILT) mg/dL 0.0-1.0 BILIRUBIN DIRECT (test code = BILD) mg/dL 0.0-0.20 SGOT/AST (test code = AST) IUnit/L 15-37 SGPT/ALT (test code = ALT) IUnit/L 12-78 ALKALINE PHOSPHATASE TOTAL (test code = ALKP) IUnit/L 45-117 HCG SERUM [id number] 01:37:00* Test Item Value Reference Range Interpretation Comments HCG SERUM QUAL (test code = HCGQL) NEGATIVE NEGATIVE This HCGQL test is NOT applicable for MALE patients.Check with nurse about probable order error.If Tumor Marker Test needed, nurse should order test "HCGTU"(Test #550.04658) [id number] 01:37:00* Test Item Value Reference Range Interpretation Comments ACETAMINOPHEN (test code = ACET) mcg/mL 10-30 [id number] 01:37:00* Test Item Value Reference Range Interpretation Comments SALICYLATE (test code = FORREST) mg/dL 2.8-20.0 [id number] 01:37:00* Test Item Value Reference Range Interpretation Comments ALCOHOL (test code = ALC) mg/dL 0-3 CBC W/O [id number] 01:34:00* Test Item Value Reference Range Interpretation Comments WHITE BLOOD CELL (test code = WBC) 8.4 K/mm3 4.5-12.5 N RED BLOOD CELL (test code = RBC) 4.67 mill/mm3 3.7-5.2 N HEMOGLOBIN (test code = HGB) 14.0 gram/dL 11.5-15.5 N HEMATOCRIT (test code = HCT) 42.3 % 36.0-46.0 N MEAN CELL VOLUME (test code = MCV) 90.6 fL 80-98 N MEAN CELL HGB (test code = MCH) 30.0 picogram 27.0-33.0 N MEAN CELL HGB CONCETRATION (test code = MCHC) 33.1 gram/dL 33.0-36. 0 N RED CELL DISTRIBUTION WIDTH (test code = RDW) 14.1 % 11.6-16. 2 N PLATELET COUNT (test code = PLT) 385 K/mm3 150-450 N MEAN PLATELET VOLUME (test code = MPV) 8.9 fL 6.7-11.0 N CBC W/O [id number] 01:32:00* Test Item Value Reference Range Interpretation Comments WHITE BLOOD CELL (test code = WBC) K/mm3 4.5-12.5 RED BLOOD CELL (test code = RBC) mill/mm3 3.7-5.2 HEMOGLOBIN (test code = HGB) 14.0 gram/dL 11.5-15.5 N HEMATOCRIT (test code = HCT) 42.3 % 36.0-46.0 N MEAN CELL VOLUME (test code = MCV) fL 80-98 MEAN CELL HGB (test code = MCH) picogram 27.0-33.0 MEAN CELL HGB CONCETRATION (test code = MCHC) gram/dL 33.0-36. 0 RED CELL DISTRIBUTION WIDTH (test code = RDW) % 11.6-16. 2 PLATELET COUNT (test code = PLT) K/mm3 150-450 MEAN PLATELET VOLUME (test code = MPV) fL 6.7-11.0 12 LEAD [id number] 19:31:2212 [facility] Date: 2239-33-36Rbc Name: PHILLY OSMAN Department: [id number] ID: [id number] Room: [facility] CHAIRSGender: F Candy Roller: ASDOB: 1970 Requested By: JACKIE Hallman Number: [id number] Reading MD: OCHOA GRIMM MeasurementsIntervals [place] Rate: 102 P: 43PR: 158 QRS: -1QRSD: 93 T: 35QT: 340 QTc: 445 Interpretive StatementsSINUS TACHYCARDIAINCOMPLETE RIGHT BUNDLE BRANCH BLOCKNONSPECIFIC T- WAVE ABNORMALITYABNORMAL RHYTHM ECGCOMPARED TO PRIOR ECG DATED 07/04/19, RSR'NOTED IN [id number] Signed On 08-01-2019 19:31:20 CARE CLINICIAN by OCHOA RUSHING [facility] TROPONIN I POC docked [id number] 17:04:00* Test Item Value Reference Range Interpretation Comments Troponin POC (test code = 46583794) 0.00 ng/mL 0-0.08 Lab Interpretation (test code = 56417-4) Normal [facility] CREATININE POC docked [id number] 16:57:00* Test Item Value Reference Range Interpretation Comments Creatinine POC (test code = 49591953) 0.7 mg/dL 0.6-1.3 GFR, Estimated (test code = 67926523) >90 >=90 mL/min/1.73 m2 Lab Interpretation (test code = 11324-5) Normal [facility] BMP POC docked [id number] 16:56:00* Test Item Value Reference Range Interpretation Comments Sodium POC (test code = 37364541) 140 mmol/L 136-145 Potassium POC (test code = 40330809) 3.6 mmol/L 3.5-5.1 Chloride POC (test code = 62828254) 104 mmol/L 98-107 TCO2 POC (test code = 52073316) 28 mmol/L 21-32 Urea Nitrogen POC (test code = 89617416) 10 mg/dL 7-18 Glucose POC (test code = 51994578) 69 mg/dL 74-106 L Hemoglobin POC (test code = 41919059) 12.6 g/dL 12-16 Hematocrit POC (test code = 43507159) 37.0 % 37-47 Lab Interpretation (test code = 48929-0) [facility]normal [facility] [id number] 16:27:56IMPRESSION: Bibasilar subsegmental atelectasis. Signed By: Erlin Hassan MD, 08/01/2019 4:27 PM Interface, Rad/Mammog In - 08/01/2019 4:33 PM CSTEXAM: XR CHEST 2 VIEWSDATE: 08/01/2019 4:25 PM INDICATION: R rib pain. Rib pain COMPARISON: Chest radiograph 07/04/2019TECHNIQUE: PA and lateral chest radiographsFINDINGS:Lines, tubes and hardware: Surgical clips overlie the gallbladder fossa. Lungs and pleura: Platelike linear opacities are present at thebilateral lung bases. There is no focal consolidation. The costophrenicsulci are sharp, without pleural effusion. No pneumothorax isidentified.Heart and mediastinum: The heart size is normal for technique. Themediastinal contours are normal. Bones and soft tissues: No acute abnormality.IMPRESSIONIMPRESSION: Bibasilar subsegmental atelectasis.Signed By: Erlin Hassan MD, 08/01/2019 4:27 PMAlcova HealthXRAY CHEST 1 [id number] 09:10:11IMPRESSION: 1. Evolving lung contusions.2. Stable bilateral pleural effusions, right greater than left.Hemothorax is considered given recent trauma.3. The previously described trace right apical pneumothorax is not seenon this study.Signed By: Capri Newman MD, 07/05/2019 9:10 AM4. Dictated By: Nannette Villegas MD, 07/04/2019 4:30 PM I have reviewed the study and agree with the findings in this report. Interface, Rad/Mammog In - 07/05/2019 9:15 AM CSTEXAMINATION: XRAY CHEST 1 VIEW INDICATION: chest pain COMPARISON: Chest radiograph 07/03/2019 at 5:13 PM FINDINGS: AP viewTUBES and LINES: None.LUNGS: Low lung volumes. Improving bilateral patchy interstitial andairspace opacities . Bibasilar subsegmental atelectasis. PLEURA: The previously described tiny right apical pneumothorax is notvisualized on this study. Unchanged pleural effusions, right greaterthan left.HEART AND MEDIASTINUM: The cardiomediastinal silhouette isunremarkable. BONES AND SOFT TISSUES: Nondisplaced right fourth through seventh anddisplaced right eighth rib fractures are better characterized on chestCT from 07/02/2019. Soft tissues are unremarkable.UPPER ABDOMEN: No free air under the diaphragm. IMPRESSIONIMPRESSION: 1. Evolving lung contusions.2. Stable bilateral pleural effusions, right greater than left.Hemothorax is considered given recent trauma.3. The previously described trace right apical pneumothorax is not seenon this study.Signed By: Capri Newman MD, 07/05/2019 9:10 AM4. Di ctated By: Nannette Villegas MD, 07/04/2019 4:30 PMI have reviewed the study and ag ree with the findings in this report.[place] [id number] LEAD [id number] 08:45:06 12 LEAD EKG FOR [facility] Test Date: 3616-48-15Eat Name: PHILLY OSMAN Department: [id number] ID: [id number] Room: Gender: Candy Roller: : 1970 Requested By: GEORGES JUAREZ Order Number: [id number] Reading MD: edy lyons MeasurementsIntervals [place] Rate: 92 P: 48PR: 156 QRS: 40QRSD: 95 T: 71QT: 362 QTc: 449 Interpre tive StatementsSINUS RHYTHMNONSPECIFIC T-WAVE ABNORMALITYElectronically Signed O n 07-05-2019 8:45:00 CARE CLINICIAN by edy Castro [facility] Metabolic Panel 2019-07-05 05:40:00* Test Item Value Reference Range Interpretation Comments Sodium (test code = 2951-2) 142 mmol/L 136-145 Potassium (test code = 2823-3) 4.2 mmol/L 3.5-5.1 Chloride (test code = 2075-0) 104 mmol/L 98-107 CO2 (test code = 83842743) 29 mmol/L 21-31 Urea Nitrogen (test code = 45237357) 15.0 mg/dL 7-25 Creatinine (test code = 43158703) 0.7 mg/dL 0.6-1.2 Glucose (test code = 94345501) 97 mg/dL 70-110 Calcium (test code = 95510002) 8.7 mg/dL 8.6-10.3 GFR, Estimated (test code = 85439725) 88 >=90 mL/min/1.73 m2 L Anion Gap (test code = 77919762) 9 mmol/L 5-16 Lab Interpretation (test code = 03291-3) Abnormal [facility] S[id number] 05:40:00* Test Item Value Reference Range Interpretation Comments Magnesium (test code = 55186862) 2.1 mg/dL 1.9-2.7 Lab Interpretation (test code = 29465-9) Normal [facility] SystemHyggpvUicyfnathm7104-64-04 05:40:00* Test Item Value Reference Range Interpretation Comments Phosphorus (test code = 2777-1) 3.9 mg/dL 2.5-5 Lab Interpretation (test code = 87533-5) Normal [facility]/[id number] 05:12:00* Test Item Value Reference Range Interpretation Comments WBC (test code = 6690-2) 5.3 K/uL 4.5-11 RBC (test code = 789-8) 3.73 4.20- 5.40 M/uL L Hemoglobin (test code = 718-7) 11.2 g/dL 12-16 L Hematocrit (test code = 4544-3) 34.2 % 37-47 L MCV (test code = 787-2) 91.7 fL 82-92 MCH (test code = 785-6) 30.0 pg 27-32 MCHC (test code = 786-4) 32.7 g/dL 32-36 RDW (test code = 75306-6) 43.8 fL 36.4-46.3 Platelet (test code = 777-3) 234 K/uL 150-400 Mean Platelet Volume (test code = 14459-8) 9.6 fL 9.4-12.4 Percent NRBC (test code = 65121425) 0.0 % Neutrophil (test code = 770-8) 40.7 % 34-70 Lymphs (test code = 736-9) 46.9 % 20-50 Monocytes (test code = 5905-5) 8.0 % 5-12 Eos (test code = 713-8) 3.6 % 0.7-5 Basos (test code = 706-2) 0.6 % 0.1-1.2 Immature Granulocytes (test code = 54656494) 0.2 % 0-0.5 Neutrophils (Absolute) (test code = 41867730) 2.15 K/uL 1.56-6.1 3 Lymphs (Absolute) (test code = 54508966) 2.47 K/uL 1.18-3.74 Monocytes(Absolute) (test code = 98491587) 0.42 K/uL 0.24-0.36 H Eos (Absolute) (test code = 61600391) 0.19 K/uL 0.04-0.36 Baso (Absolute) (test code = 25808949) 0.03 K/uL 0.01-0.08 Immature Grans (Abs) (test code = 29093393) 0.01 K/uL 0-0.03 Absolute NRBC (test code = 78788227) 0.00 K/uL Lab Interpretation (test code = 03447-8) Abnormal Ezekiel Rivas, [id number] 16:51:00* Test Item Value Reference Range Interpretation Comments CK (test code = 96623294) 53 U/L 30-223 C KMB not performed if CK is <100. If CKMB is required, please notify laboratory immediately. Lab Interpretation (test code = 54756-1) Normal [facility] SystemKay[facility]in [id number] 16:50:00* Test Item Value Reference Range Interpretation Comments Troponin I (test code = 71571104) <0.03 <0.04 ng/mL Lab Interpretation (test code = 98065-1) Normal [facility] (TTE)2019-07-03 12:40:00TRANSTHORACIC ECHO (TTE) Transthoracic Echo Report PHILLY OSMAN Age: 49 Gender: F : 1970 Exam Date: 07/03/2019 08:39 Exam Location: [facility] Echo Ordering Phys: KAUSHIK SEVERINO Referring Phys: [id number] Reading Phys: Neris Porter MD Fellow Phys: Fellow Phys: [employer] Grader: Gallo Ramos Reason For Exam: Indications: syncope work-up, Syncope and collapse ICD-9 Codes: R55 Exam Type: TRANSTHORACIC ECHO (TTE) Procedure CPT: 43197 Addtional CPT: Ht (in): 66 BSA: 1.81 [...] Fractional Shortening PLAX 30.8 % IVS Diastolic T hickness 0.93 cm 0.6-1.0 (M) / 0.6-0.9 (F) LVPW Diastol ic Thickness 0.8 cm 0.6-1.0 (M) / 0.6-0.9 (F) LV Relati ve Wall Thickness 0.59 <= 0.42 LVOT Diameter 2 cm Aortic Root Diameter 3.1 cm LA Volume 35.2 cm LA Volume Index 19.4 cm/m2 16 - 34 cm/m2 LV Mass by linear method 65.5 g LV Mass by linear method Index 36.1 g/m2 DOPPLER LVOT Peak Velocity 84.9 cm/s LVOT [...] Tricuspid Valve Structurally normal tricuspid valve without sig nificant stenosis. There is trace tricuspid regurgitation. Insufficient TR jet to estimate pulmonary artery systolic pressure. Pulmonic Valve Pulmonic va lve not well visualized. Pericardium No pericardial effusion. Aorta Normal aortic root for body surface area. IVC The inferior vena cava is normal in s ize. CONCLUSIONS The left ventricle is normal in size. Normal LV wall thickne ss. LV systolic function is normal. LVEF is 60 - 64%. There are no regional wa ll motion abnormalities. There is impaired LV relaxation with normal filling pressures. The right ventricle is normal in size and systolic function. In sufficient TR jet to estimate pulmonary artery systolic pressure. Compared t o prior echo no significant changes. Neris Porter MD (Electronically Shoshana d) Final Date: 03 July 2019 12:40 2D ECHO LV Garibay tolic Diameter PLAX 3 cm 4.2-5.8 (M) / 3.8-5.2 (F) LV S ystolic Diameter PLAX 2.1 cm 2.5-4.0 (M) / 2.2-3.5 (F) L V Fractional Shortening PLAX 30.8 % IVS Diastolic Thickness 0.93 cm 0.6-1.0 (M) / 0.6-0.9 (F) LVPW Diastolic Thick ness 0.8 cm 0.6-1.0 (M) / 0.6-0.9 (F) LV Relative Wall Thickness 0.59 <= 0.42 LVOT Diameter 2 cm Aortic Root Diameter 3.1 cm LA Volume 35.2 cm LA Volume Index 19.4 cm/m2 16 - 34 cm/m2 LV Mass by linear method 65.5 g LV Mass by linear method Index 36.1 g/m2 DOPPLER LVOT Peak Velocity 84.9 cm/s LVOT Peak Gradient 2.9 mmHg LVOT Mean Velocity 54.3 cm/s LVOT Mean Gradient 1.3 mmHg LVOT Velocity Time Integral 15 cm LVOT Stroke Volume 46.9 cm LVOT Cardiac Output 10.2 liters/min Mitral E Point Velocity 76.7 cm/s LV E' Lateral Velocity 10.9 cm/s Mitral E to LV E' Lateral Ratio 7 [facility] MIN 2019-07-03 10:29:28IMPRESSION: No acute radiographic abnormality. Dictated By: Eleno Lock MD, 07/03/2019 10:23 AM I have reviewed the study and agree with the findings in this report. Signed By: Ja Mendez MD, 07/03/2019 10:29 AM Interface, Rad/Mammog In - 07/03/2019 10:34 AM CSTRight shoulder radiograph - 2 viewsRight humerus radiograph - 2 views Right forearm radiograph - 2 viewsHISTORY: pain s/p fall COMPARISON: Chest radiograph 07/03/2019 , chest CT with contrast07/02/2019 DISCUSSION:Bone:No acute displaced fracture. Joints:Inferomedial displacement of the humeral head relative to the glenoid,however from the prior chest CT this is in anatomic alignment andtherefore, likely related to positioning.Soft tissues:Pulmonary contusions better seen on CT scan July 02, 2019IMPRESSIONIMPRESSION: No acute radiographic abnormality.Dictated By: Eleno Lock MD, 07/03/2019 10:23 AMI have reviewed the study and agree with the findings in this report.Signed By: Ja Mendez MD, 07/03/2019 10:29 [facility] / NHRMCLast.fmXRAY HUMERUS 2 VIEWS MIN 2019-07-03 10:29:28IMPRESSION: No acute radiographic abnormality. Dictated By: Eleno Lock MD, 07/03/2019 10:23 AM I have reviewed the study and agree with the findings in this report. Signed By: Ja Mendez MD, 07/03/2019 10:29 AM Interface, Rad/Mammog In - 07/03/2019 10:34 AM CSTRight shoulder radiograph - 2 viewsRight humerus radiograph - 2 views Right forearm radiograph - 2 viewsHISTORY: pain s/p fall COMPARISON: Chest radiograph 07/03/2019 , chest CT with contrast07/02/2019 DISCUSSION:Bone:No acute displaced fracture. Joints:Inferomedial displacement of the humeral head relative to the glenoid,however from the prior chest CT this is in anatomic alignment andtherefore, likely related to positioning.Soft tissues:Pulmonary contusions better seen on CT scan July 02, 2019IMPRESSIONIMPRESSION: No acute radiographic abnormality.Dictated By: Eleno Lock MD, 07/03/2019 10:23 AMI have reviewed the study and agree with the findings in this report.Signed By: Ja Mendez MD, 07/03/2019 10:29 [facility] PartnersPlaxicaXRAY FOREARM 2 VIEWS MIN 2019-07-03 10:29:28IMPRESSION: No acute radiographic abnormality. Dictated By: Eleno Lock MD, 07/03/2019 10:23 AM I have reviewed the study and agree with the findings in this report. Signed By: Ja Mendez MD, 07/03/2019 10:29 AM Interface, Rad/Mammog In - 07/03/2019 10:34 AM CSTRight shoulder radiograph - 2 viewsRight humerus radiograph - 2 views Right forearm radiograph - 2 viewsHISTORY: pain s/p fall COMPARISON: Chest radiograph 07/03/2019 , chest CT with contrast07/02/2019 DISCUSSION:Bone:No acute displaced fracture. Joints:Inferomedial displacement of the humeral head relative to the glenoid,however from the prior chest CT this is in anatomic alignment andtherefore, likely related to positioning.Soft tissues:Pulmonary contusions better seen on CT scan July 02, 2019IMPRESSIONIMPRESSION: No acute radiographic abnormality.Dictated By: Eleno Lock MD, 07/03/2019 10:23 AMI have reviewed the study and agree with the findings in this report.Signed By: Ja Mendez MD, 07/03/2019 10:29 [facility] CHEST W [id number] 16:21:18Interface, Rad/Mammog In - 07/02/2019 4:41 PM CSTEXAMINATION: CT CHEST W CONTRAST, CT ABDOMEN AND PELVIS W CONTRASTINDICATION: Pneumothorax, known, follow up COMPARISON: CT chest 10/02/2018TECHNIQUE: The chest, abdomen and pelvis were scanned using amultidetector helical scanner. Coronal and sagittal reformations wereobtained. Trauma protocol performed.IV Contrast: 150Oral Contrast: NoneRadiation Dose: Total DLP 2860 mGy*cmFINDINGS:LINES/TUBES: NoneLUNGS/AIRWAYS: Patchy lung contusions in the lingula, right middle lobe and right lowerlobe with a combination of aspiration in both lower lobes.Patent airway.PLEURA: Small right pneumothorax. Mild atelectatic and bibasilarpulmonary contusions, more pronounced on the right. Small pleural-basedopacity within the superior portion of the left upper lobe (series7/33).MEDIASTINUM/VASCULATURE: No evidence of acute traumatic thoracic aortic injury. No mediastinalhematoma or abnormal pericardial effusion.NECK BASE: No hematoma or mass.LIVER: No laceration or hematoma.BILIARY: Normal gallbladder. No ductal dilation.SPLEEN: No laceration or hematoma.PANCREAS: No laceration or hematoma.ADRENALS: No hemorrhage.KIDNEYS: No laceration or hematoma. No hydronephrosis. A 6.3 cmexophytic cyst within the interpolar region of the right kidney thatmeasures simple fluid density (series 4/).GI TRACT: No obstruction or wall thickening.VESSELS: No evidence of acute traumatic abdominal aortic injury. Noextravasation or pseudoaneurysms.PERITONEUM/RETROPERITONEUM: No free air or fluidLYMPH NODES: No lymphadenopathyREPRODUCTIVE ORGANS: NormalBLADDER: Nor malSOFT TISSUES: No hematoma. Minimal subcutaneous emphysema of the rightlateral thoracic chest.BONES:Nondisplaced fractures of the right 4-7 ribs.Displaced fra cture of the right eighth rib.Severe degenerative changes at L5-S1 with associat ed mild (grade 1)degenerative spondylolisthesis. IMPRESSION:1. Patchy lung cont usions in the lingula, right middle lobe and rightlower lobe with a combination of aspiration in both lower lobes.2. Small right pneumothorax.3. Displaced fra cture of the right eighth rib. Nondisplaced fracturesof the right 4-7 ribs.4. L arge exophytic right renal cyst, recommend ambulatory follow-uprenal ultrasound in 6-12 months to determine stability.COMMUNICATION: findings discussed with Dr. Nunn by Dr. Orlando Jenkins inperson on 07/02/2019 at 1500.Dictated By: Orlando reyes MD, 07/02/2019 4:01 PMI have reviewed the study and agree with the findings i n this report.Signed By: Phoebe Chavira MD, 07/02/2019 4:21 PMHarris HealthCT ABDOMEN AND PELVIS [id number] 16:21:18Interface, Rad/Mammog In - 07/02/2019 4:41 PM CSTEXAMINATION: CT CHEST W CONTRAST, CT ABDOMEN AND PELVIS W CONTRASTINDICATION: Pneumothorax, known, follow up COMPARISON: CT chest 10/02/2018TECHNIQUE: The chest, abdomen and pelvis were scanned using amultidetector helical scanner. Coronal and sagittal reformations wereobtained. Trauma protocol performed.IV Contrast: 150Oral Contrast: NoneRadiation Dose: Total DLP 2860 mGy*cmFINDINGS:LINES/TUBES: NoneLUNGS/AIRWAYS: Patchy lung contusions in the lingula, right middle lobe and right lowerlobe with a combin ation of aspiration in both lower lobes.Patent airway.PLEURA: Small right pneumo thorax. Mild atelectatic and bibasilarpulmonary contusions, more pronounced on t he right. Small pleural-basedopacity within the superior portion of the left upp er lobe (series7/).MEDIASTINUM/VASCULATURE: No evidence of acute traumatic tho racic aortic injury. No mediastinalhematoma or abnormal pericardial effusion.NEC K BASE: No hematoma or mass.LIVER: No laceration or hematoma.BILIARY: Normal gal lbladder. No ductal dilation.SPLEEN: No laceration or hematoma.PANCREAS: No lace ration or hematoma.ADRENALS: No hemorrhage.KIDNEYS: No laceration or hematoma. N o hydronephrosis. A 6.3 cmexophytic cyst within the interpolar region of the rig ht kidney thatmeasures simple fluid density (series 4/).GI TRACT: No obstructi on or wall thickening.VESSELS: No evidence of acute traumatic abdominal aortic i njury. Noextravasation or pseudoaneurysms.PERITONEUM/RETROPERITONEUM: No free ai r or fluidLYMPH NODES: No lymphadenopathyREPRODUCTIVE ORGANS: NormalBLADDER: Nor malSOFT TISSUES: No hematoma. Minimal subcutaneous emphysema of the rightlateral thoracic chest.BONES:Nondisplaced fractures of the right 4-7 ribs.Displaced fra cture of the right eighth rib.Severe degenerative changes at L5-S1 with associat ed mild (grade 1)degenerative spondylolisthesis. IMPRESSION:1. Patchy lung cont usions in the lingula, right middle lobe and rightlower lobe with a combination of aspiration in both lower lobes.2. Small right pneumothorax.3. Displaced fra cture of the right eighth rib. Nondisplaced fracturesof the right 4-7 ribs.4. L arge exophytic right renal cyst, recommend ambulatory follow-uprenal ultrasound in 6-12 months to determine stability.COMMUNICATION: findings discussed with Dr. Nunn by Dr. Orlando Jenkins inperson on 07/02/2019 at 1500.Dictated By: Orlando reyes MD, 07/02/2019 4:01 PMI have reviewed the study and agree with the findings i n this report.Signed By: Phoebe Chavira MD, 07/02/2019 4:21 [facility] [id number] 14:14:31IMPRESSION: Head CT: 1. No abnormalities.2. No changes when compared to the head CT on 05/20/2018.3. Minimal supratentorial white matter small vessel ischemic changes,described on the MRI are beyond the scope of resolution for thisnoncontrast head CT. Cervical Spine:1. No acute abnormalities.2. Cannot adequately assess for ligament, spinal cord or vascularinjuries.3. Moderate degenerative spinal canal and foraminal stenosis asdescribed Dictated By: Steve Dias MD, 07/02/2019 1:50 PM I have reviewed the study and agree with the findings in this report. Signed By: Pk Guardado MD, 07/02/2019 2:14 PM Interface, Rad/Mammog In - 07/02/2019 2:19 PM CSTExam: Head and Cervical Spine CT's without contrastHistory: Head trauma, headacheComparison studies: Head CT 05/20/2018, brain MRI 07/03/2018..Technique: Axial scans obtained through the head and cervical spine.Coronal and sagittal reconstructions obtained from the axial data. IV Contrast: NoneComplications: NoneRadiation Dose: Total DLP: 1453 mGy*cmFINDINGS:Head CT: Scalp/Skull:No abnormalities.Brain sulci: Appropriate for patient's age.Ventricles: Normal in size and configuration. No hydrocephalus.Extra-axial spaces:No masses or fluid collections.Parenchyma: No abnormal densities.No masses, hemorrhage or acute or chronic cortical insultsDural sinuses: No abnormal densities.Sellar/Suprasellar region: Intact.Skull base and Craniocervical junction: Intact .Cervical spine CT:Fractures:None.Craniocervical junction: Patent foramen magnum. No Chiari 1malformation.Alignment:Normal lordosis.No scoliosis.No subluxation.Posterior longitudinal ligament: Not ossified.Soft tissues: No abnormalities.Vertebrae:No infection or neoplasm .Degenerative changes:* Mildly degenerated disc at C4-5, moderate at C5-6 and C6-7, mild fromC7 to T3.* Foraminal stenosis, moderate right at C4-5, bilaterally at C5-6 andC6-7 due to facet and uncoarthrosis.* Mod erate spinal canal stenosis at C5-6 and C6-7 due to discosteophyte complexes.Inc idental findings: None.IMPRESSIONIMPRESSION:Head CT:1. No abnormalities.2. No changes when compared to the head CT on 05/20/2018.3. Minimal supratentorial whi te matter small vessel ischemic changes,described on the MRI are beyond the scop e of resolution for thisnoncontrast head CT.Cervical Spine:1. No acute abnormal ities.2. Cannot adequately assess for ligament, spinal cord or vascularinjuries .3. Moderate degenerative spinal canal and foraminal stenosis asdescribedDictat ed By: Steve Dias MD, 07/02/2019 1:50 PMI have reviewed the study and agree with the findings in this report.Signed By: Pk Eaton MD, 07/02/2019 2:1 4 PMAlcova HealthHI C-SPINE W/O [id number] 14:14:31IMPRESSION: Head CT: 1. No abnormalities.2. No changes when compared to the head CT on 05/20/2018.3. Minimal supratentorial white matter small vessel ischemic changes,described on the MRI are beyond the scope of resolution for thisnoncontrast head CT. Cervical Spine:1. No acute abnormalities.2. Cannot adequately assess for ligament, spinal cord or vascularinjuries.3. Moderate degenerative spinal canal and foraminal stenosis asdescribed Dictated By: Steve Dias MD, 07/02/2019 1:50 PM I have reviewed the study and agree with the findings in this report. Signed By: Pk Eaton MD, 07/02/2019 2:14 PM Interface, Rad/Mammog In - 07/02/2019 2:19 PM CSTExam: Head and Cervical Spine CT's without contrast History: Head trauma, headacheComparison studies: Head CT 05/20/2018, brain MRI ..Technique: Axial scans obtained through the head and cervical spine.Co jennifer and sagittal reconstructions obtained from the axial data. IV Contrast: No neComplications: NoneRadiation Dose: Total DLP: 1453 mGy*cmFINDINGS:Head CT: Sca lp/Skull:No abnormalities.Brain sulci: Appropriate for patient's age.Ventricles: Normal in size and configuration. No hydrocephalus.Extra-axial spaces:No masses or fluid collections.Parenchyma: No abnormal densities.No masses, hemorrhage or acute or chronic cortical insultsDural sinuses: No abnormal densities.Sellar/S uprasellar region: Intact.Skull base and Craniocervical junction: Intact .Cervic al spine CT:Fractures:None.Craniocervical junction: Patent foramen magnum. No Ch iari 1malformation.Alignment:Normal lordosis.No scoliosis.No subluxation.Posteri or longitudinal ligament: Not ossified.Soft tissues: No abnormalities.Vertebrae: No infection or neoplasm .Degenerative changes:* Mildly degenerated disc at C4- 5, moderate at C5-6 and C6-7, mild fromC7 to T3.* Foraminal stenosis, moderate right at C4-5, bilaterally at C5-6 andC6-7 due to facet and uncoarthrosis.* Mod erate spinal canal stenosis at C5-6 and C6-7 due to discosteophyte complexes.Inc idental findings: None.IMPRESSIONIMPRESSION:Head CT:1. No abnormalities.2. No changes when compared to the head CT on 05/20/2018.3. Minimal supratentorial whi te matter small vessel ischemic changes,described on the MRI are beyond the scop e of resolution for thisnoncontrast head CT.Cervical Spine:1. No acute abnormal ities.2. Cannot adequately assess for ligament, spinal cord or vascularinjuries .3. Moderate degenerative spinal canal and foraminal stenosis asdescribedDictat ed By: Steve Dias MD, 07/02/2019 1:50 PMI have reviewed the study and agree with the findings in this report.Signed By: Pk Eaton MD, 07/02/2019 2:1 4 PMHarris HealthCT CHEST W/O [id number] 10:07:00 [place] [address] Patient Name: PHILLY OSMAN MR #: [id number] : 1970 Age/Sex: 49/F Req #: [id number] Adm Physician: Ordered by: HINA MORALES MD Report #: [id number] Location: [facility] Room/Bed: Procedure: [id number] H OPD/CT CHEST W/O CONTRAST-HOPD Exam Date: 07/02/19 E xam Time: 0955 REPORT STATUS: Shoshana d EXAM: CT Chest WITHOUT intravenous contrast 07/02/2019 12:00 AM INDICATION : Trauma COMPARISON: Chest and rib radiographs of earlier the same day TECH NIQUE: Chest was scanned utilizing a multidetector helical scanner from the vikki ng apex through the level of the adrenal glands without administration of IV c ontrast. Coronal and sagittal reformations were obtained. Routine protocol was performed. IV CONTRAST: None RADIATION DOSE: Total DLP: 499.0 mGy*cm. Dose modulation, iterative reconstruction, and/or weight based adjustment of t he mA/kV was utilized to reduce the radiation dose to as low as reasonably ach ievable. COMPLICATIONS: None FINDINGS: LINES/ TUBES: None. VANCE GS AND AIRWAYS: The central airways are patent. No focal consolidation. No pu lmonary edema. Bibasilar subsegmental atelectasis. 6 mm left apical groundglas s nodule. 6 mm left lower lobe groundglass nodule (series 2 image 39). PL EURA: Small right pneumothorax. No left pneumothorax. No pleural effusion. HEART AND MEDIASTINUM: The thyroid gland is normal. No mediastinal, hilar or axillary lymphadenopathy. The heart is normal in size.. There is no pericardi al effusion. UPPER ABDOMEN: Limited noncontrast views of the upper abdome n demonstrate postoperative findings of prior cholecystectomy. The no other fo norberto abnormality of the partially visualized liver, spleen, pancreas, adrenals, or left upper kidney. There is a 5.9 cm exophytic simple cyst of the right up per kidney. BONES: Acute mildly displaced right lateral eighth rib fracture and nondisplaced right lateral sixth and seventh rib fractures. No suspicious lytic or blastic lesions. Mild degenerative changes of the visualized spine. SOFT TISSUES: Unremarkable. IMPRESSION: Small right pneumothorax with associated nondisplaced right lateral sixth and seventh rib fractures and n ondisplaced right lateral eighth rib fracture. Bibasilar subsegmental atele ctasis. No focal pneumonia or pulmonary edema. 6 mm left upper and left low er lobe groundglass pulmonary nodules. Recommend follow-up chest CT at 3-6 mon ths. Subsequent management should be based on the most suspicious nodule. The above findings were discussed with Dr. Morales on 07/02/2019 10:07 AM, who r esponded indicating that the communication was understood. Signed by: Kwasi Pope MD on 07/02/2019 10:16 AM Dictated By: AYDEE POPE MD Electronicall y Signed By: AYDEE POPE MD on 07/02/19 1016 Transcribed By: VIRI on 07/02/19 1016 COPY TO: HINA MORALES MD RIBS UNILAT W/CXR- HOPD 2019-07-02 09:23:00 [place] [address] Patient Name: PHILLY OSMAN MR #: [id number] : 1970 Age/Sex: 49/F Req #: [id number] Adm Physician: Ordered by: HINA MORALES MD Report #: [id number] Location: [facility] Room/Bed: Procedure: [id number] H OPD/RIBS UNILAT W/CXR- HOPD Exam Date: 07/02/19 Exam Time: 0809 REPORT STATUS: Signed EXAMINATION: RIBS UNILAT W/CXR- HOPD INDICATION: Trauma fall CO MPARISON: None FINDINGS: LINES/TUBES:None LUNGS:The lungs ar e well-inflated. Bibasilar linear opacities, likely subsegmental atelectasis. No focal pneumonia or pulmonary edema. PLEURA:Right apical pneumothorax carmelo sures up to 18 mm maximum thickness. MEDIASTINUM:The cardiomediastinal silh ouette appears normal in size and shape. BONES/SOFT TISSUES:No displaced ri b fracture. ABDOMEN:No free air under the diaphragm. IMPRESSION: Right apical pneumothorax measures up to 18 mm maximum thickness. No displ aced rib fracture, however in the presence of pneumothorax, occult nondisplace d rib fracture causing underlying pleural injury is possible. The above fin dings were discussed with Dr. Morales on 07/02/2019 9:23 AM, who responded indica ting that the communication was understood. Signed by: Aydee Pope MD on 9:27 AM Dictated By: AYDEE POPE MD 6 Transcribed By: VIRI on 07/02/19926 COPY TO: HINA MORALES MD XRAY ANKLE 3 VIEW [id number] 13:45:03 IMPRESSION: 1. Old, healed Melchor B lateral malleolus fracture.2. Mild lateral t ranslation of the talus. Signed By: Aniket Ortiz MD, 2019 1:45 PM Int erface, Rad/Mammog In - 2019 1:50 PM CSTEXAM: XR LEFT ANKLE 3 VIEWSDATE: 2019 11:26 AM INDICATION: left ankle sprain. Pain of joint of left ankle and foot COMPARISON: None availableTECHNIQUE: AP, lateral and oblique ankle rad iographsDISCUSSION: Old, healed lateral malleolus fracture. Mild lateraltranslat ion of the talus with widening of the distal syndesmosis andmedial clear space. The ankle mortise is congruent.No soft tissue abnormality is identified.IMPRESSI ONIMPRESSION: 1. Old, healed Melchor B lateral malleolus fracture.2. Mild lateral translation of the talus.Signed By: Aniket Ortiz MD, 2019 1:45 PM [facility] Cervical Spine Wo [id number] 09:08:32Hm Interface, Radiology Results Incoming - 05/04/2019 9:11 AM CSTEXAMINATION: CT CERVICAL SPINE WO CONTRASTCLINICAL HISTORY: head trauma with midline neck tend ernessCOMPARISON: NoneTECHNIQUE: Axial noncontrast enhanced images of the cervi norberto spine were obtained with coronal and sagittal reconstructed algorithms. CT i maging was performed with iterative reconstruction technique and/or automated ex posure control to reduce radiation dose.FINDINGS:No fracture identified. Cranioc ervical junction is intact. Alignment is within normal limits. No suspicious oss eous lesion. No prevertebral edema or collection identified. There is no visuali zed mass lesion. Lung apices show no discrete lesions. Axial images through the disc spaces demonstrate the following:C1-C2: There is narrowing of the atlantoax ial interval with spurring. There is no significant stenosis.C2-C3: No significa nt posterior disc disease, spinal canal or neural foraminal stenosis.C3-C4: No s ignificant posterior disc disease, spinal canal or neural foraminal stenosis.C4- C5: There is posterior spondylosis with minimal canal narrowing. There is modera te right and mild to moderate left foraminal narrowing.C5-C6: There is loss of d isc height with posterior spondylosis and posterior protrusion results in modera te canal stenosis. Uncovertebral arthrosis and facet disease a results in severe bilateral foraminal narrowing. Correlate for C6 radiculopathies.C6-C7: There is loss of disc height with posterior spondylosis and moderate canal narrowing. Th ere is severe left and moderate severe right foraminal stenosis.C7-T1: No signif icant posterior disc disease, spinal canal or neural foraminal stenosis.IMPRESSI ON: There is spondylosis with significant canal and foraminal stenosis at C5-6 a nd C6-7 as detailed above. Correlate for associated radiculopathies. There is no acute osseous abnormality.[facility]-[id number] MethodistCT Head Wo Contrast 2019-05-04 09:03:24Hm Interface, Radiology Results 05/04/2019 9:06 AM CSTEXAMINATION: CT HEAD WO CONTRASTCLINICAL HISTORY: head trauma from fallCOMPARISON: CT brain dated December 14, 2018TECHNIQUE: Noncontrast enhanced images of the brain were obtained from the skull base to the vertex. Both soft tissue and bone reconstruction algorithms were performed. CT imaging was performed with iterative reconstruction technique and/or automated exposure control to reduce radiation dose.FINDINGS:The brain parenchyma has no acute lesion. The [...] changes which are similar to the prior exam.No acute soft tissue hematoma or laceration.Paranasal sinuses shows no acute air-fluid levels. Mastoid air cells are clear. No skull fractures or aggressive bony lesions. IMPRESSION:There are involutional changes as detailed above with no acute intracranial abnormality. No change from prior exam.[facility]-[id number] MethodistXR Shoulder 2+ Vw Right 2019-05-04 07:37:41Hm Interface, Radiology Results Incoming 05/04/2019 7:40 AM CSTEXAMINATION: XR SHOULDER 2 VW RIGHTCLINICAL HISTORY: Shoulder pain initial examCOMPARISON: None.IMPRESSION:1.There is no evidence of acute right shoulder fracture or dislocation.2.The glenohumeral joint space is preserved.3.The soft tissues are unremarkable.[facility]-[id number] and approved by vice president consulting services/fellow: Kian Cannon, Phyllis Hightower MD, personally reviewed the images and resident's/fellow's findings and agree with the final report.[facility] Tibia Fibula 2 Vw [id number] 07:32:33Hm Interface, Radiology Results Incoming 05/04/2019 7:35 AM CSTEXAMINATION: XR TIBIA FIBULA 2 VW LEFTCLINICAL HISTORY: Lower leg trauma fx suspected initial examTECHNIQUE: 2 views of left lower leg obtained.COMPARISON: None.IMPRESSION:No acute fracture or malalignment identified. [facility]-[id number] MethodistWRIST COMPLETE [id number] 17:15:00 [place] [address] Patient Name: PHILLY OSMAN MR #: [id number] : 1970 Age/Sex: 47/F Req #: [id number] Adm Physician: Ordered by: DAMIEN DRAPER SMUTTER Report #: [id number] Location: ER Room/Bed: Procedure: [id number] D X/WRIST COMPLETE LEFT Exam Date: Exam Time: REPORT STATUS: Signed WRIST COMPLETE L EFT HISTORY: Fall, left wrist pain. COMPARISON: None available. FINDINGS: AP, lateral, and oblique views. Bones: No acute displaced fracture. Osseous alignment is within normal limits. Joints: The rick nt spaces are well-maintained. Soft tissues: The soft tissues appear unre markable. IMPRESSION: No acute radiographic abnormality. Signed by: DR. Willam Rodriguez MD on 04/04/2018 5:16 PM Dictated By: WILLAM Falk MD 15 Transcribed B y: VIRI on 04/04/181715 COPY TO: DAMIEN DRAPER NP SHOULDER LEFT [id number] 17:13:00 [place] [address] Patient Name: PHILLY OSMAN MR #: [id number] : 1970 Age/Sex: 47/F Req #: [id number] Adm Physician: Ordered by: DAMIEN DRAPER NP Report #: [id number] Location: ER Room/Bed: Procedure: D X/SHOULDER LEFT COMPLETE Exam Date: Exam Time: REPORT STATUS: Signed SHOULDER LEFT COMPLETE HISTORY: Fall, left shoulder pain.. COMPARISON: None availab le. FINDINGS: Internal and external rotation views. Bones: No acute displaced fracture. Osseous alignment is within normal limits. J oints: The joint spaces are well-maintained. Soft tissues: The soft tis sues appear unremarkable. IMPRESSION: No acute radiographic abnormali ty. Signed by: DR. Willam Rodriguez MD on 04/04/2018 5:15 PM Dictated By: WILLAM RODRIGUEZ MD Transcribed By: VIRI on 04/04/181714 COPY TO: DAMIEN DRAPER NP PELVIS AP 1-2 [id number] 17:12:00 [place] [address] Patient Name: PHILLY OSMAN MR #: [id number] : 1970 Age/Sex: 47/F Req #: [id number] Adm Physician: Ordered by: DAMIEN DRAPER NP Report #: [id number] Location: ER Room/Bed: Procedure: [id number] D X/PELVIS AP 1-2 VIEWS Exam Date: Exam Time: REPORT STATUS: Signed PELVIS AP 1-2 EWS HISTORY: Fall. Pelvic pain. COMPARISON: None available. F INDINGS: Bones: No acute displaced fracture. Osseous alignment is within normal limits. Joints: The joint spaces are well-maintained. Soft t issues: The soft tissues appear unremarkable. IMPRESSION: No acute radiographic abnormality. Signed by: DR. Willam Rodriguez MD on 04/04/2018 5: 13 PM Dictated By: WILLAM RODRIGUEZ MD 12 Transcribed By: VIRI on 04/04/181712 COPY TO: DAMIEN DRAPER NP
== END 2020-04-07 06:45 | disposition home or self-care (01) ==
LOC: FSED 06:41
DX: S06.0X0A Concussion without loss of consciousness, initial encounter (principal); M25.551 Pain in right hip; W01.0XXA Fall on same level from slipping, tripping and stumbling without subsequent striking against object, initial encounter; Y93.01 Activity, walking, marching and hiking; I10 Essential (primary) hypertension; E78.5 Hyperlipidemia, unspecified; G40.909 Epilepsy, unspecified, not intractable, without status epilepticus; F41.9 Anxiety disorder, unspecified; M54.9 Dorsalgia, unspecified; G89.29 Other chronic pain
CPT/HCPCS: 70450; 72125; 72192; 81003; 99283

== ENCOUNTER 2020-07-06 11:53 | Observation (INO) | payer MEDICARE ==
[~2020-07-06] VITALS: Ht 167.6 cm; Wt 73.5 kg
[2020-07-06] MEDS ORDERED: PANTOPRAZOLE 40 MG 10ML VIAL IV STA (12:11)
[2020-07-06] MEDS ORDERED: MORPHINE SULFATE INJ 2 MG/ML SYR IV STA (12:11)
[2020-07-06] MEDS ORDERED: SODIUM CHLORIDE 0.9% 1000ML 1,000 ML IV STA (12:11)
[2020-07-06] MEDS ORDERED: ONDANSETRON HCL INJ 2MG/ML 2ML 2 MG/ML VIAL IV STA (12:11)
[2020-07-06] MEDS ORDERED: ASPIRIN 81 MG CHEW TAB PO ONE (12:15)
[2020-07-06 12:24] LABS: BASOPHILS % 0.6 % (0.0-1.0); EOSINOPHILS # (AUTO) 0.1 (0.0-0.4); EOSINOPHILS % 2.5 % (0.0-6.0); HEMATOCRIT 38.7 % (34.2-44.1); HEMOGLOBIN 12.8 g/dL (12.0-16.0); LYMPHOCYTES # (AUTO) 2.8 (1.0-3.2); LYMPHOCYTES % 54.9 % (18.0-39.1); MEAN CORPUSCULAR HEMOGLOBIN 29.4 pg (28-32); MEAN CORPUSCULAR HGB CONC 33.1 g/dL (31-35); MEAN CORPUSCULAR VOLUME 88.8 fL (81-99); MONOCYTES # (AUTO) 0.3 (0.2-0.8); MONOCYTES % 5.7 % (4.4-11.3); NEUTROPHILS # (AUTO) 1.9 (2.1-6.9); NEUTROPHILS % 36.1 % (38.7-80.0); PLATELET COUNT 305 x10e3/uL (140-360); RED BLOOD COUNT 4.36 x10e6/uL (3.6-5.1); RED CELL DISTRIBUTION WIDTH 12.9 % (11.7-14.4)
[2020-07-06 12:28] LABS: INR 0.88; PROTHROMBIN TIME 12.4 seconds (11.9-14.5)
[2020-07-06 12:29] LABS: PARTIAL THROMBOPLASTIN TIME 28.6 seconds (23.8-35.5)
[2020-07-06 12:37] LABS: ALANINE AMINOTRANSFERASE 21 IU/L (0-55); ALBUMIN 4.2 g/dL (3.5-5.0); ALBUMIN/GLOBULIN RATIO 1.4 (0.8-2.0); ALKALINE PHOSPHATASE 66 IU/L (40-150); ANION GAP 11.6 mmol/L (8-16); BLOOD UREA NITROGEN 10 mg/dL (7-26); BUN/CREATININE RATIO 12 (6-25); CALCIUM 8.8 mg/dL (8.4-10.2); CARBON DIOXIDE 27 mmol/L (22-29); CHLORIDE 103 mmol/L (98-107); CREATINE KINASE 71 IU/L (29-168); CREATININE, SERUM 0.84 mg/dL (0.57-1.11); EST GLOMERULAR FILTRATION RATE > 60 ML/MIN (60-); GLUCOSE 84 mg/dL (74-118); LIPASE 7 U/L (8-78); POTASSIUM 3.6 mmol/L (3.5-5.1); SODIUM 138 mmol/L (136-145)
[2020-07-06 13:35] LABS: CLARITY,URINE CLEAR (CLEAR); COLOR,URINE YELLOW (YELLOW); KETONES,URINE NEGATIVE (NEGATIVE); LEUKOCYTE ESTERASE ,URINE NEGATIVE (NEGATIVE); NITRITE,URINE NEGATIVE (NEGATIVE); PROTEIN,URINE DIPSTICK NEGATIVE (NEGATIVE); URINE UROBILINOGEN 0.2 mg/dL (0.2 - 1)
[2020-07-06 14:06] LABS: BACTERIA,URINE FEW /HPF; EPITHELIAL CELLS,URINE FEW /LPF; TRANSITIONAL EPI CELLS,URINE RARE; WBC,URINE (MAN) 0-5 /HPF (0-5)
[2020-07-06] MEDS ORDERED: MORPHINE SULFATE INJ 2 MG/ML SYR IV PRN (14:30)
[2020-07-06] MEDS ORDERED: NITROGLYCERIN 0.4 MG SUBL SL PRN (14:30)
[2020-07-06] MEDS ORDERED: ONDANSETRON HCL INJ 2MG/ML 2ML 2 MG/ML VIAL IV PRN (14:30)
[2020-07-06] MEDS: FAMOTIDINE 20 MG TAB PO SCH (15:06)
[2020-07-06] MEDS ORDERED: KETOROLAC TROMETHAMINE 30 MG/ML VIAL IV STA (17:43)
[2020-07-06] MEDS: IBUPROFEN 200 MG TAB PO PRN (17:55)
[2020-07-06] MEDS ORDERED: IBUPROFEN 600 MG TAB ONE (18:02)
[2020-07-06 18:41] LABS: CREATINE KINASE 46 IU/L (29-168)
[2020-07-06 18:44] VITALS: BP 108/76
[2020-07-06 20:00] VITALS: BP 92/68
[2020-07-06 21:03] VITALS: BP 92/68
[2020-07-06 21:05] VITALS: BP 92/68
[2020-07-06] MEDS: KETOROLAC TROMETHAMINE 30 MG/ML VIAL IV PRN (22:37)
[2020-07-07] VITALS (8 sets, daily range): BP systolic 79–129; BP diastolic 47–87
[2020-07-07] MEDS ORDERED: AMITRIPTYLINE H25 MG PO (02:06)
[2020-07-07] MEDS ORDERED: TRAZODONE HCL100 MG PO (02:06)
[2020-07-07] MEDS ORDERED: ULTRAM50 MG PO (02:06)
[2020-07-07] MEDS ORDERED: CLONAZEPAM1 MG PO (02:12)
[2020-07-07] MEDS ORDERED: TIZANIDINE HCL4 M1 PO (02:12)
[2020-07-07] MEDS ORDERED: GABAPENTIN400 MG PO (02:12)
[2020-07-07] MEDS ORDERED: IMITREX25 MG PO (02:12)
[2020-07-07] MEDS: FAMOTIDINE 20 MG TAB PO SCH ×2 (04:07→16:29)
[2020-07-07 05:25] LABS: BASOPHILS # (AUTO) 0.1 (0.0-0.1); EOSINOPHILS # (AUTO) 0.2 (0.0-0.4); EOSINOPHILS % 2.9 % (0.0-6.0); HEMATOCRIT 38.5 % (34.2-44.1); HEMOGLOBIN 12.6 g/dL (12.0-16.0); LYMPHOCYTES # (AUTO) 2.7 (1.0-3.2); MEAN CORPUSCULAR HEMOGLOBIN 29.9 pg (28-32); MEAN CORPUSCULAR HGB CONC 32.7 g/dL (31-35); MEAN CORPUSCULAR VOLUME 91.4 fL (81-99); MONOCYTES # (AUTO) 0.4 (0.2-0.8); MONOCYTES % 8.2 % (4.4-11.3); NEUTROPHILS # (AUTO) 1.9 (2.1-6.9); NEUTROPHILS % 36.7 % (38.7-80.0); PLATELET COUNT 243 x10e3/uL (140-360); RED BLOOD COUNT 4.21 x10e6/uL (3.6-5.1); RED CELL DISTRIBUTION WIDTH 12.8 % (11.7-14.4)
[2020-07-07 05:46] LABS: ALANINE AMINOTRANSFERASE 15 IU/L (0-55); ALBUMIN 3.3 g/dL (3.5-5.0); ALBUMIN/GLOBULIN RATIO 1.2 (0.8-2.0); ALKALINE PHOSPHATASE 54 IU/L (40-150); BLOOD UREA NITROGEN 13 mg/dL (7-26); BUN/CREATININE RATIO 17 (6-25); CALCIUM 8.1 mg/dL (8.4-10.2); CARBON DIOXIDE 27 mmol/L (22-29); CHLORIDE 106 mmol/L (98-107); CHOL/HDL RATIO 4.1 (3.0-3.6); CHOLESTEROL 156 MD/DL (0-199); CREATININE, SERUM 0.76 mg/dL (0.57-1.11); EST GLOMERULAR FILTRATION RATE > 60 ML/MIN (60-); GLUCOSE 89 mg/dL (74-118); HDL CHOLESTEROL 38 MG/DL (40-60); LDL CHOLESTEROL 85 MG/DL (60-130); SODIUM 139 mmol/L (136-145); TRIGLYCERIDES 165 MG/DL (0-149)
[2020-07-07 05:58] LABS: CREATINE KINASE 38 IU/L (29-168)
[2020-07-07] MEDS: ASPIRIN 81 MG ENTERIC COATED PO SCH (09:00)
[2020-07-07] MEDS: KETOROLAC TROMETHAMINE 30 MG/ML VIAL IV PRN (10:14)
[2020-07-07 13:31] LABS: CREATINE KINASE 37 IU/L (29-168)
[2020-07-07] MEDS: IBUPROFEN 200 MG TAB PO PRN ×2 (14:04→20:57)
[2020-07-07] MEDS ORDERED: BENZONATATE 100 MG CAP PO PRN (18:45)
[2020-07-07] MEDS ORDERED: TRAMADOL HCL 50 MG TAB PO PRN (20:30)
[2020-07-07] MEDS: CLONAZEPAM 1 MG TAB PO SCH (20:56)
[2020-07-07] MEDS: ALPRAZOLAM 1 MG TAB PO SCH (20:56)
[2020-07-07] MEDS ORDERED: TRAZODONE HCL 50 MG TAB PO SCH (21:00)
[2020-07-07] MEDS ORDERED: ZOLPIDEM TARTRATE 5 MG TAB PO SCH (21:00)
[2020-07-08] VITALS (8 sets, daily range): BP systolic 91–115; BP diastolic 57–81
[2020-07-08] MEDS: FAMOTIDINE 20 MG TAB PO SCH ×2 (02:34→15:39)
[2020-07-08] MEDS: KETOROLAC TROMETHAMINE 30 MG/ML VIAL IV PRN ×2 (02:47→10:14)
[2020-07-08 05:20] LABS: BASOPHILS % 0.4 % (0.0-1.0); EOSINOPHILS # (AUTO) 0.1 (0.0-0.4); EOSINOPHILS % 1.9 % (0.0-6.0); HEMATOCRIT 37.1 % (34.2-44.1); HEMOGLOBIN 12.3 g/dL (12.0-16.0); LYMPHOCYTES # (AUTO) 2.4 (1.0-3.2); LYMPHOCYTES % 33.5 % (18.0-39.1); MEAN CORPUSCULAR HEMOGLOBIN 29.8 pg (28-32); MEAN CORPUSCULAR HGB CONC 33.2 g/dL (31-35); MEAN CORPUSCULAR VOLUME 89.8 fL (81-99); MONOCYTES # (AUTO) 0.5 (0.2-0.8); NEUTROPHILS # (AUTO) 4.1 (2.1-6.9); NEUTROPHILS % 56.9 % (38.7-80.0); PLATELET COUNT 255 x10e3/uL (140-360); RED BLOOD COUNT 4.13 x10e6/uL (3.6-5.1); RED CELL DISTRIBUTION WIDTH 12.4 % (11.7-14.4)
[2020-07-08 05:45] LABS: BLOOD UREA NITROGEN 17 mg/dL (7-26); BUN/CREATININE RATIO 23 (6-25); CALCIUM 8.3 mg/dL (8.4-10.2); CARBON DIOXIDE 23 mmol/L (22-29); CHLORIDE 106 mmol/L (98-107); CREATININE, SERUM 0.75 mg/dL (0.57-1.11); EST GLOMERULAR FILTRATION RATE > 60 ML/MIN (60-); GLUCOSE 100 mg/dL (74-118); MAGNESIUM 1.9 MG/DL (1.3-2.1); PHOSPHORUS 3.3 MG/DL (2.3-4.7); SODIUM 139 mmol/L (136-145)
[2020-07-08] MEDS ORDERED: REGADENOSON 0.4 MG/5 ML SYR IV ONE (08:52)
[2020-07-08] MEDS ORDERED: SUMATRIPTAN SUCCINATE 25 MG TAB PO PRN (09:00)
[2020-07-08] MEDS ORDERED: GABAPENTIN 400 MG CAP PO SCH (09:00)
[2020-07-08] MEDS: CLONAZEPAM 1 MG TAB PO SCH ×2 (10:13→15:39)
[2020-07-08] MEDS: ASPIRIN 81 MG ENTERIC COATED PO SCH (10:13)
[2020-07-08] MEDS: ALPRAZOLAM 1 MG TAB PO SCH ×2 (10:13→15:39)
[2020-07-08] MEDS ORDERED: AMITRIPTYLINE HCL 25 MG TAB PO SCH (17:00)
[2020-07-08] MEDS ORDERED: MOTRIN200 MG PO (17:14)
[2020-07-08] MEDS ORDERED: ONDANSETRON HCL 4 MG ORAL DISINTEGRATING TAB PO PRN (18:15)
== END 2020-07-08 17:25 | disposition home or self-care (01) ==
LOC: ER 12:14 → ERHOLD 14:27 → MED/SURG2 18:33
PROVIDERS: ADMIT Internal Medicine; ATTEND Internal Medicine
DX: R07.89 Other chest pain (principal); I10 Essential (primary) hypertension; I25.10 Atherosclerotic heart disease of native coronary artery without angina pectoris; G40.909 Epilepsy, unspecified, not intractable, without status epilepticus; G43.909 Migraine, unspecified, not intractable, without status migrainosus; E78.5 Hyperlipidemia, unspecified; K21.9 Gastro-esophageal reflux disease without esophagitis; Z90.49 Acquired absence of other specified parts of digestive tract; F17.210 Nicotine dependence, cigarettes, uncomplicated; Z88.2 Allergy status to sulfonamides; Z88.8 Allergy status to other drugs, medicaments and biological substances; Z82.3 Family history of stroke; Z82.49 Family history of ischemic heart disease and other diseases of the circulatory system; R42 Dizziness and giddiness; F41.1 Generalized anxiety disorder; K29.70 Gastritis, unspecified, without bleeding; K20.90 Esophagitis, unspecified without bleeding; J98.11 Atelectasis; G89.29 Other chronic pain; Z87.820 Personal history of traumatic brain injury; Z20.822 Contact with and (suspected) exposure to COVID-19
CPT/HCPCS: 36415; 71045; 71250; 78452; 80048; 80053; 80061; 81001; 82550; 82553; 83690; 83735; 83880; 84100; 84484; 85025; 85610; 85730; 87086; 93005; 93017; 93306; 99284; A9502; G0378; J1885; J2270; J2405; J7030; U0002

== ENCOUNTER 2020-07-28 08:43 | Observation (INO) | payer MEDICARE ==
[~2020-07-28] VITALS: Ht 167.6 cm; Wt 72.6 kg
[~2020-07-28 08:43] MED LIST changes: +AMITRIPTYLINE H25 MG PO; +CLONAZEPAM1 MG PO; +GABAPENTIN400 MG PO; +IMITREX25 MG PO; +MOTRIN200 MG PO; +TIZANIDINE HCL4 M1 PO; +TRAZODONE HCL100 MG PO; +ULTRAM50 MG PO
[2020-07-28] MEDS ORDERED: SODIUM CHLORIDE 0.9% 1000ML 1,000 ML IV STA (09:10)
[2020-07-28] MEDS ORDERED: KETOROLAC TROMETHAMINE 30 MG/ML VIAL IV ONE (09:15)
[2020-07-28] MEDS ORDERED: ONDANSETRON HCL INJ 2MG/ML 2ML 2 MG/ML VIAL IV ONE (09:15)
[2020-07-28] MEDS ORDERED: DEXAMETHASONE SOD PHOS 10 MG/1 ML VIAL IV ONE (09:15)
[2020-07-28] MEDS ORDERED: ACETAMINOPHEN 325 MG TAB PO ONE (09:15)
[2020-07-28] MEDS ORDERED: ATORVASTATIN CA10 MG PO (09:18)
[2020-07-28] MEDS ORDERED: TIZANIDINE HCL4 M1 PO (09:18)
[2020-07-28] MEDS ORDERED: PROVENTIL HFA6.7 GM INH (09:18)
[2020-07-28] MEDS ORDERED: CEFTRIAXONE SOD 1 GM VIAL IV ONE (09:30)
[2020-07-28] MEDS ORDERED: SODIUM CHLORIDE FLUSH 10 ML SYR INJ PRN (09:30)
[2020-07-28] MEDS: FAMOTIDINE 20 MG TAB PO SCH ×2 (09:45→20:36)
[2020-07-28] MEDS ORDERED: FAMOTIDINE 20 MG/2 ML VIAL IV ONE (09:48)
[2020-07-28] MEDS ORDERED: DEXAMETHASONE SOD PHOS INJ 4 MG/ML VIAL ONE (09:53)
[2020-07-28] MEDS ORDERED: SODIUM CHLORIDE 0.9% 1000ML 1,000 ML ONE (09:54)
[2020-07-28] MEDS ORDERED: CEFTRIAXONE SOD 1 GM/NS 50 ML 50 ML IV ONE (09:54)
[2020-07-28 12:00] VITALS: BP 134/74
[2020-07-28] MEDS: NITROGLYCERIN 2% OINT 1 GM PKT TOP SCH ×3 (12:00→23:51)
[2020-07-28] MEDS ORDERED: ACETAMINOPHEN 325 MG TAB PO PRN (13:00)
[2020-07-28] MEDS ORDERED: SUMATRIPTAN SUCCINATE 25 MG TAB PO PRN (13:00)
[2020-07-28] MEDS ORDERED: ALBUTEROL SULFATE HFA 8GM INHALATION AEROSOL INH PRN (13:00)
[2020-07-28] MEDS: ALBUTEROL/IPRATROPIUM 3 ML NEB NEB SCH ×2 (13:10→18:24)
[2020-07-28] MEDS: TIZANIDINE HCL 4 MG TAB PO SCH ×2 (13:38→21:18)
[2020-07-28 14:57] LABS: CREATINE KINASE MB 1.2 ng/mL (0-5.0)
[2020-07-28] MEDS: CLONAZEPAM 1 MG TAB PO SCH ×2 (15:04→20:36)
[2020-07-28 16:17] VITALS: BP 99/59
[2020-07-28] MEDS ORDERED: AMITRIPTYLINE HCL 25 MG TAB PO SCH (17:00)
[2020-07-28 20:00] VITALS: BP 98/55
[2020-07-28] MEDS ORDERED: TRAZODONE HCL 50 MG TAB PO SCH (21:00)
[2020-07-28] MEDS ORDERED: SIMVASTATIN 40 MG TAB PO SCH (21:00)
[2020-07-28 21:01] VITALS: BP 98/55
[2020-07-29 00:11] VITALS: BP 112/84
[2020-07-29] MEDS: TRAMADOL HCL 50 MG TAB PO PRN ×2 (03:30→08:51)
[2020-07-29 04:00] VITALS: BP 96/65
[2020-07-29] MEDS: NITROGLYCERIN 2% OINT 1 GM PKT TOP SCH (05:26)
[2020-07-29] MEDS: TIZANIDINE HCL 4 MG TAB PO SCH (06:00)
[2020-07-29 06:42] LABS: CREATINE KINASE 50 IU/L (29-168)
[2020-07-29] MEDS: ALBUTEROL/IPRATROPIUM 3 ML NEB NEB SCH (06:45)
[2020-07-29 08:10] VITALS: BP 95/57
[2020-07-29 08:45] VITALS: BP 95/57
[2020-07-29] MEDS: CLONAZEPAM 1 MG TAB PO SCH (08:50)
[2020-07-29] MEDS: FAMOTIDINE 20 MG TAB PO SCH (08:51)
[2020-07-29] MEDS ORDERED: GUAIFENESIN 600 MG TAB PO SCH (09:00)
[2020-07-29] MEDS ORDERED: NICOTINE 7 MG PATCH TOP SCH (09:00)
[2020-07-29] MEDS ORDERED: ASPIRIN 81 MG ENTERIC COATED PO SCH (09:00)
[2020-07-29] MEDS ORDERED: GUAIFENESIN 600 MG TAB PO PRN (09:00)
[2020-07-29] MEDS ORDERED: DOXYCYCLINE HYCLATE TABLET 100 MG TAB PO ONE (09:00)
== END 2020-07-29 10:16 | disposition home or self-care (01) ==
LOC: FSED 09:17 → ERHOLD 09:34 → MED/SURG3 11:43
PROVIDERS: ADMIT Internal Medicine; ATTEND Internal Medicine
DX: J44.1 Chronic obstructive pulmonary disease with (acute) exacerbation (principal); J44.0 Chronic obstructive pulmonary disease with (acute) lower respiratory infection; J20.9 Acute bronchitis, unspecified; F41.9 Anxiety disorder, unspecified; I25.10 Atherosclerotic heart disease of native coronary artery without angina pectoris; G43.909 Migraine, unspecified, not intractable, without status migrainosus; G89.29 Other chronic pain; Z20.822 Contact with and (suspected) exposure to COVID-19; F17.200 Nicotine dependence, unspecified, uncomplicated; G40.909 Epilepsy, unspecified, not intractable, without status epilepticus
CPT/HCPCS: 36415; 71046; 80053; 82550; 82553; 84484; 85025; 93005; 94640; 96374; 96375; 99284; G0378; J0696; J1100; J1885; J2405; J7030; U0002

== ENCOUNTER 2020-08-06 10:13 | Emergency (ER) | payer MEDICARE ==
[~2020-08-06] VITALS: Ht 167.6 cm; Wt 72.6 kg
[~2020-08-06 10:13] MED LIST changes: +ATORVASTATIN CA10 MG PO; +PROVENTIL HFA6.7 GM INH
[2020-08-06] MEDS ORDERED: CYCLOBENZAPRINE HCL 10 MG TAB ONE (13:04)
== END 2020-08-06 13:00 | disposition home or self-care (01) ==
LOC: FSED 11:30
DX: G51.0 Bell's palsy (principal); E78.5 Hyperlipidemia, unspecified; J44.9 Chronic obstructive pulmonary disease, unspecified; I25.10 Atherosclerotic heart disease of native coronary artery without angina pectoris; G40.909 Epilepsy, unspecified, not intractable, without status epilepticus; F41.9 Anxiety disorder, unspecified
CPT/HCPCS: 70450; 99284

== ENCOUNTER 2020-09-06 05:07 | Emergency (ER) | payer MEDICARE ==
[~2020-09-06] VITALS: Ht 167.6 cm; Wt 74.8 kg
[2020-09-06] MEDS ORDERED: ULTRAM50 MG PO (05:43)
[2020-09-06] MEDS ORDERED: IBUPROFEN IB200 MG PO (05:43)
[2020-09-06] MEDS ORDERED: ACETAMINOPHEN500 MG PO (05:43)
[2020-09-06] MEDS ORDERED: IBUPROFEN 600 MG TAB PO ONE (05:45)
[2020-09-06] MEDS ORDERED: IBUPROFEN 600 MG TAB ONE (05:50)
[2020-09-06] MEDS ORDERED: ONDANSETRON HCL 4 MG ORAL DISINTEGRATING TAB PO ONE (06:45)
[2020-09-06] MEDS ORDERED: HYDROCODONE/APAP 5MG-325MG TAB PO ONE (06:45)
[2020-09-06] MEDS ORDERED: HYDROCODONE/APAP 5MG-325MG TAB ONE (06:51)
== END 2020-09-06 07:04 | disposition home or self-care (01) ==
LOC: FSED 05:35
DX: S93.402A Sprain of unspecified ligament of left ankle, initial encounter (principal); S93.401A Sprain of unspecified ligament of right ankle, initial encounter; W18.31XA Fall on same level due to stepping on an object, initial encounter; Y93.01 Activity, walking, marching and hiking; Y92.008 Other place in unspecified non-institutional (private) residence as the place of occurrence of the external cause; E78.5 Hyperlipidemia, unspecified; G40.909 Epilepsy, unspecified, not intractable, without status epilepticus; I25.10 Atherosclerotic heart disease of native coronary artery without angina pectoris; J44.9 Chronic obstructive pulmonary disease, unspecified; F41.9 Anxiety disorder, unspecified
CPT/HCPCS: 99283

== ENCOUNTER 2020-11-02 18:13 | Emergency (ER) | payer MEDICARE ==
[~2020-11-02] VITALS: Ht 167.6 cm; Wt 74.8 kg
[~2020-11-02 18:13] MED LIST changes: +ACETAMINOPHEN500 MG PO; +IBUPROFEN IB200 MG PO
== END 2020-11-02 18:50 | disposition home or self-care (01) ==
LOC: ER 18:44
DX: M54.5 Low back pain (principal); G89.29 Other chronic pain; E78.5 Hyperlipidemia, unspecified; J44.9 Chronic obstructive pulmonary disease, unspecified; I25.10 Atherosclerotic heart disease of native coronary artery without angina pectoris; G40.909 Epilepsy, unspecified, not intractable, without status epilepticus; F41.9 Anxiety disorder, unspecified; F17.210 Nicotine dependence, cigarettes, uncomplicated
CPT/HCPCS: 99282

== ENCOUNTER 2022-09-09 10:49 | Emergency (ER) | payer MEDICARE ==
[~2022-09-09] VITALS: Ht 167.6 cm; Wt 68.0 kg
[2022-09-09] MEDS ORDERED: ASPIRIN 325 MG TAB PO ONE (11:30)
[2022-09-09] MEDS ORDERED: SODIUM CHLORIDE 0.9% 1000ML 1,000 ML IV SCH (11:30)
[2022-09-09] MEDS ORDERED: ONDANSETRON HCL INJ 2MG/ML 2ML 2 MG/ML VIAL IV STA (12:53)
[2022-09-09] MEDS ORDERED: Morphine 4mg INJECTION 4 MG/ML INJ IV ONE (13:00)
== END 2022-09-09 16:03 | disposition other institution (70) ==
LOC: FSED 11:01
DX: R06.02 Shortness of breath (principal); R07.9 Chest pain, unspecified; J44.9 Chronic obstructive pulmonary disease, unspecified; I25.10 Atherosclerotic heart disease of native coronary artery without angina pectoris; E78.5 Hyperlipidemia, unspecified; G40.909 Epilepsy, unspecified, not intractable, without status epilepticus; F41.9 Anxiety disorder, unspecified; F17.210 Nicotine dependence, cigarettes, uncomplicated
CPT/HCPCS: 71045; 80053; 82553; 84484; 85025; 93005; 99284; J7030

== ENCOUNTER 2022-12-23 14:16 | Inpatient (IN) | payer MEDICARE ==
[~2022-12-23] VITALS: Ht 167.6 cm; Wt 65.5 kg
[~2022-12-23 14:16] MED LIST changes: +LEVSIN-SL0.125 MG SL; +OMEPRAZOLE40 MG PO
[2022-12-23] MEDS ORDERED: NEURONTIN300 MG PO (14:49)
[2022-12-23] MEDS ORDERED: [UNRECOGNIZED DRUG - OTHER] (14:49)
[2022-12-23] MEDS ORDERED: SODIUM CHLORIDE 0.9% 1000ML 1,000 ML IV STA (14:56)
[2022-12-23] MEDS ORDERED: ONDANSETRON HCL INJ 2MG/ML 2ML 2 MG/ML VIAL IV ONE ×2 (15:00→15:15)
[2022-12-23] MEDS ORDERED: KETOROLAC TROMETHAMINE 30 MG/ML VIAL IV ONE (15:00)
[2022-12-23] MEDS ORDERED: FAMOTIDINE 20 MG/2 ML VIAL IV ONE ×2 (15:00→15:07)
[2022-12-23] MEDS ORDERED: KETOROLAC TROMETHAMINE 30 MG/ML VIAL ONE (15:07)
[2022-12-23] MEDS ORDERED: SODIUM CHLORIDE 0.9% 1000ML 1,000 ML ONE (15:07)
[2022-12-23] MEDS ORDERED: DIPHENHYDRAMINE HCL INJ 50 MG/ML VIAL IV PRN (15:30)
[2022-12-23] MEDS ORDERED: ONDANSETRON HCL INJ 2MG/ML 2ML 2 MG/ML VIAL IV PRN (15:30)
[2022-12-23] MEDS ORDERED: ACETAMINOPHEN 325 MG TAB PO PRN (15:30)
[2022-12-23] MEDS: FAMOTIDINE 20 MG/2 ML VIAL IV SCH (15:44)
[2022-12-23 17:08] VITALS: BP 131/81; PULSE 70; RESP 20; TEMP 97.8; O2SAT 100
[2022-12-23 17:18] VITALS: BP 131/81; PULSE 70; RESP 20; TEMP 97.8; O2SAT 100
[2022-12-23] MEDS ORDERED: IMITREX100 MG PO (17:36)
[2022-12-23] MEDS ORDERED: COSENTYX P150 MG/1 M SQ (17:36)
[2022-12-23] MEDS ORDERED: TIZANIDINE HCL4 MG PO (17:36)
[2022-12-23] MEDS ORDERED: ALPRAZOLAM1 MG PO (17:36)
[2022-12-23] MEDS ORDERED: TRAZODONE HCL150 MG PO (17:36)
[2022-12-23] MEDS ORDERED: AMITRIPTYLINE H75 MG PO (17:36)
[2022-12-23 18:24] VITALS: BP 131/81; PULSE 82; RESP 20; TEMP 97.8; O2SAT 100
[2022-12-23 18:26] VITALS: BP 131/81; PULSE 82; RESP 20; TEMP 97.8; O2SAT 100
[2022-12-23 18:52] VITALS: PULSE 80; RESP 18; O2SAT 98
[2022-12-23 20:00] VITALS: BP 93/66; PULSE 72; RESP 17; TEMP 97.6; O2SAT 100
[2022-12-23] MEDS: ZOLPIDEM TARTRATE 10 MG TAB PO PRN (21:51)
[2022-12-23] MEDS: ACETAMINOPHEN 325 MG TAB PO PRN (21:52)
[2022-12-23 22:46] LABS: CREATINE KINASE 89 IU/L (29-168)
[2022-12-24] VITALS (10 sets, daily range): BP systolic 91–132; BP diastolic 60–83; PULSE 59–80; RESP 16–20; TEMP 97.7–98.7; O2SAT 95–100
[2022-12-24] MEDS: ACETAMINOPHEN 325 MG TAB PO PRN (02:55)
[2022-12-24] MEDS: FAMOTIDINE 20 MG/2 ML VIAL IV SCH ×2 (05:34→16:44)
[2022-12-24 08:56] LABS: CHOL/HDL RATIO 4.5 (3.0-3.6)
[2022-12-24 08:57] LABS: CREATINE KINASE 93 IU/L (29-168)
[2022-12-24] MEDS: ASPIRIN 325 MG TAB EC PO SCH (09:48)
[2022-12-24] MEDS ORDERED: TIZANIDINE HCL 4 MG TAB PO PRN (10:00)
[2022-12-24] MEDS ORDERED: SUMATRIPTAN SUCCINATE 100 MG PO PRN (10:00)
[2022-12-24] MEDS ORDERED: TRAMADOL HCL 50 MG TAB PO PRN (10:00)
[2022-12-24] MEDS ORDERED: SUMATRIPTAN SUCCINATE 25 MG TAB PO PRN (10:15)
[2022-12-24] MEDS ORDERED: IOPAMIDOL 370 MG/ML 100 ML INFUS..BTL INJ ONE (11:14)
[2022-12-24] MEDS: SODIUM CHLORIDE 0.9% 1000ML 1,000 ML IV SCH ×2 (11:40→21:08)
[2022-12-24] MEDS ORDERED: GABAPENTIN 300 MG CAP PO SCH (17:00)
[2022-12-24] MEDS ORDERED: NON-FORMULARY MEDICATION (Amitriptyline Hcl 75 MG) PO SCH (21:00)
[2022-12-24] MEDS: TRAZODONE HCL 50 MG TAB PO SCH (21:05)
[2022-12-24] MEDS: AMITRIPTYLINE HCL 25 MG TAB PO SCH (21:05)
[2022-12-25] VITALS (10 sets, daily range): BP systolic 100–115; BP diastolic 44–79; PULSE 58–82; RESP 16–18; TEMP 97.2–98.4; O2SAT 95–98
[2022-12-25] MEDS ORDERED: DONNATAL/LIDOCAINE/MAALOX 30 ML SUSP PO ONE (00:45)
[2022-12-25] MEDS ORDERED: MAGNESIUM/ALUMINUM/SIMETHICONE 30 ML UDC ONE (02:41)
[2022-12-25] MEDS ORDERED: LIDOCAINE VISC 2% SOLN 15 ML UDC ONE (02:41)
[2022-12-25] MEDS: ALPRAZOLAM 1 MG TAB PO PRN ×2 (03:25→14:38)
[2022-12-25] MEDS: SODIUM CHLORIDE 0.9% 1000ML 1,000 ML IV SCH ×2 (05:15→16:04)
[2022-12-25] MEDS ORDERED: MAGNESIUM HYDROXIDE 30 ML UDC PO PRN (09:15)
[2022-12-25] MEDS ORDERED: TIZANIDINE HCL 4 MG TAB PO PRN (09:15)
[2022-12-25] MEDS ORDERED: ACETAMINOPHEN/CODEINE 300MG - 30MG TAB PO ONE (09:45)
[2022-12-25 09:54] LABS: BASOPHILS % 0.4 % (0.0-1.0); EOSINOPHILS # (AUTO) 0.2 (0.0-0.4); EOSINOPHILS % 3.2 % (0.0-6.0); HEMATOCRIT 38.8 % (34.2-44.1); HEMOGLOBIN 12.6 g/dL (12.0-16.0); LYMPHOCYTES % 38.1 % (18.0-39.1); MEAN CORPUSCULAR HEMOGLOBIN 29.3 pg (28-32); MEAN CORPUSCULAR HGB CONC 32.5 g/dL (31-35); MEAN CORPUSCULAR VOLUME 90.2 fL (81-99); MONOCYTES # (AUTO) 0.3 (0.2-0.8); MONOCYTES % 5.8 % (4.4-11.3); NEUTROPHILS # (AUTO) 2.8 (2.1-6.9); NEUTROPHILS % 51.4 % (38.7-80.0); PLATELET COUNT 176 x10e3/uL (140-360); RED CELL DISTRIBUTION WIDTH 14.2 % (11.7-14.4)
[2022-12-25] MEDS: CELECOXIB 100 MG CAP PO SCH ×2 (09:58→16:04)
[2022-12-25] MEDS: SENNA-S TABLET PO SCH ×2 (09:59→16:04)
[2022-12-25] MEDS: ASPIRIN 325 MG TAB EC PO SCH (09:59)
[2022-12-25] MEDS: GABAPENTIN 300 MG CAP PO SCH ×3 (10:02→21:01)
[2022-12-25 10:31] LABS: ALBUMIN/GLOBULIN RATIO 1.2 (0.8-2.0); ANION GAP 10.8 mmol/L (8-16); CALCIUM 8.5 mg/dL (8.4-10.2); CREATININE, SERUM 0.72 mg/dL (0.57-1.11); POTASSIUM 3.8 mmol/L (3.5-5.1)
[2022-12-25] MEDS: TRAMADOL HCL 50 MG TAB PO SCH ×2 (13:55→18:09)
[2022-12-25] MEDS: AMITRIPTYLINE HCL 25 MG TAB PO SCH (21:01)
[2022-12-25] MEDS: TRAZODONE HCL 50 MG TAB PO SCH (21:01)
[2022-12-26] VITALS (8 sets, daily range): BP systolic 101–129; BP diastolic 59–83; PULSE 60–71; RESP 16–18; TEMP 97.2–98.4; O2SAT 95–100
[2022-12-26] MEDS: TRAMADOL HCL 50 MG TAB PO SCH ×4 (00:19→20:36)
[2022-12-26] MEDS: SODIUM CHLORIDE 0.9% 1000ML 1,000 ML IV SCH ×3 (00:27→20:37)
[2022-12-26] MEDS: GABAPENTIN 300 MG CAP PO SCH ×3 (04:47→20:36)
[2022-12-26] MEDS: ASPIRIN 325 MG TAB EC PO SCH (09:00)
[2022-12-26] MEDS: SENNA-S TABLET PO SCH ×2 (09:00→17:00)
[2022-12-26] MEDS: CELECOXIB 100 MG CAP PO SCH ×2 (09:02→17:00)
[2022-12-26] MEDS ORDERED: ONDANSETRON HCL 4 MG ORAL DISINTEGRATING TAB PO PRN ×2 (11:15)
[2022-12-26] MEDS: ALPRAZOLAM 1 MG TAB PO PRN (12:01)
[2022-12-26] MEDS: ACETAMINOPHEN/CODEINE 300MG - 30MG TAB PO PRN (15:29)
[2022-12-26] MEDS ORDERED: BENZOCAINE/TETRACAINE/BUTAMBEN AERO SPRAY 56 GM CAN ONE (18:09)
[2022-12-26] MEDS: TRAZODONE HCL 50 MG TAB PO SCH (20:36)
[2022-12-26] MEDS: AMITRIPTYLINE HCL 25 MG TAB PO SCH (20:37)
[2022-12-26] MEDS: ZOLPIDEM TARTRATE 10 MG TAB PO PRN (20:51)
[2022-12-27] MEDS: TRAMADOL HCL 50 MG TAB PO SCH ×2 (00:28→06:08)
[2022-12-27 01:23] VITALS: BP 109/72; PULSE 66; RESP 17; TEMP 97.8; O2SAT 100
[2022-12-27 05:46] VITALS: BP 107/75; PULSE 62; RESP 18; TEMP 97.8; O2SAT 96
[2022-12-27 05:47] LABS: BASOPHILS % 0.8 % (0.0-1.0); EOSINOPHILS # (AUTO) 0.3 (0.0-0.4); HEMATOCRIT 37.4 % (34.2-44.1); HEMOGLOBIN 12.6 g/dL (12.0-16.0); LYMPHOCYTES # (AUTO) 2.2 (1.0-3.2); LYMPHOCYTES % 44.5 % (18.0-39.1); MEAN CORPUSCULAR HEMOGLOBIN 29.4 pg (28-32); MEAN CORPUSCULAR HGB CONC 33.7 g/dL (31-35); MEAN CORPUSCULAR VOLUME 87.4 fL (81-99); MONOCYTES # (AUTO) 0.3 (0.2-0.8); MONOCYTES % 6.4 % (4.4-11.3); NEUTROPHILS # (AUTO) 2.2 (2.1-6.9); NEUTROPHILS % 42.9 % (38.7-80.0); PLATELET COUNT 189 x10e3/uL (140-360); RED BLOOD COUNT 4.28 x10e6/uL (3.6-5.1); RED CELL DISTRIBUTION WIDTH 13.7 % (11.7-14.4)
[2022-12-27] MEDS: GABAPENTIN 300 MG CAP PO SCH (06:08)
[2022-12-27 06:18] LABS: ALBUMIN 3.1 g/dL (3.5-5.0); ALBUMIN/GLOBULIN RATIO 1.3 (0.8-2.0); ANION GAP 9.7 mmol/L (8-16); CALCIUM 8.6 mg/dL (8.4-10.2); CREATININE, SERUM 0.65 mg/dL (0.57-1.11); POTASSIUM 3.7 mmol/L (3.5-5.1)
[2022-12-27] MEDS: SODIUM CHLORIDE 0.9% 1000ML 1,000 ML IV SCH (06:18)
[2022-12-27 08:15] VITALS: BP 120/72; PULSE 77; RESP 16; TEMP 98; O2SAT 98
[2022-12-27] MEDS: ACETAMINOPHEN/CODEINE 300MG - 30MG TAB PO PRN (08:18)
[2022-12-27] MEDS: ASPIRIN 325 MG TAB EC PO SCH (08:18)
[2022-12-27] MEDS: CELECOXIB 100 MG CAP PO SCH (08:18)
[2022-12-27] MEDS: SENNA-S TABLET PO SCH (08:18)
[2022-12-27 08:42] VITALS: BP 120/72; PULSE 77; RESP 16; TEMP 98; O2SAT 98
[2022-12-27 09:00] VITALS: BP 120/72; PULSE 77; RESP 16; TEMP 98; O2SAT 98
== END 2022-12-27 11:29 | disposition home or self-care (01) | DRG 392 ==
LOC: FSED 14:44 → ERHOLD 15:21 → MED/SURG2 16:44 → OBSVTOIN 12-26 08:59
PROVIDERS: ADMIT Internal Medicine; ATTEND Internal Medicine
PROC: 0DB78ZX Excision of Stomach, Pylorus, Via Natural or Artificial Opening Endoscopic, Diagnostic (ICD-10-PCS; principal; 2022-12-26 18:05)
DX: K29.70 Gastritis, unspecified, without bleeding (principal); R07.89 Other chest pain; K21.00 Gastro-esophageal reflux disease with esophagitis, without bleeding; R10.31 Right lower quadrant pain; R25.2 Cramp and spasm; F41.9 Anxiety disorder, unspecified; F32.A Depression, unspecified; J44.9 Chronic obstructive pulmonary disease, unspecified; I25.10 Atherosclerotic heart disease of native coronary artery without angina pectoris; K44.9 Diaphragmatic hernia without obstruction or gangrene; E78.5 Hyperlipidemia, unspecified; G40.909 Epilepsy, unspecified, not intractable, without status epilepticus; G43.909 Migraine, unspecified, not intractable, without status migrainosus; Z96.659 Presence of unspecified artificial knee joint; Z59.6 Low income; Z90.49 Acquired absence of other specified parts of digestive tract; Z79.891 Long term (current) use of opiate analgesic
CPT/HCPCS: 36415; 43239; 71046; 71260; 74177; 80048; 80053; 80061; 80076; 81003; 82550; 82553; 84484; 85025; 88305; 88342; 93005; 94799; 96361; 96374; 96375; 99284; G0378; J1200; J1885; J2405; J7030; Q9967

== ENCOUNTER 2023-10-11 17:09 | Emergency (ER) | payer MEDICARE ==
[~2023-10-11] VITALS: Ht 167.6 cm; Wt 59.0 kg
[~2023-10-11 17:09] MED LIST changes: +ACETAMINOPHEN 325 MG TAB ONE; +ALPRAZOLAM1 MG PO; +AMITRIPTYLINE H75 MG PO; +AMOXICILLIN875 MG PO; +BENZONATATE100 MG PO; +COSENTYX P150 MG/1 M SQ; +IMITREX100 MG PO; +IOPAMIDOL 370 MG/ML 100 ML INFUS..BTL INJ ONE; +NAPROSYN500 MG PO; +NEURONTIN300 MG PO; +NITROGLYCERIN0.4 MG SL; +SODIUM CHLORIDE 0.9% 1000 ML BAG ONE; +Sodium Chloride 0.9% 50ML Bag ONE; +TIZANIDINE HCL4 MG PO; +TRAZODONE HCL150 MG PO; +[UNRECOGNIZED DRUG - OTHER]
[2023-10-11 18:06] LABS: BASOPHILS % 0.5 % (0.0-1.0); EOSINOPHILS # (AUTO) 0.2 (0.0-0.4); EOSINOPHILS % 2.9 % (0.0-6.0); HEMATOCRIT 41.2 % (34.2-44.1); HEMOGLOBIN 14.5 g/dL (12.0-16.0); LYMPHOCYTES # (AUTO) 2.7 (1.0-3.2); LYMPHOCYTES % 48.6 % (18.0-39.1); MEAN CORPUSCULAR HEMOGLOBIN 31.4 pg (28-32); MEAN CORPUSCULAR HGB CONC 35.2 g/dL (31-35); MEAN CORPUSCULAR VOLUME 89.2 fL (81-99); MONOCYTES # (AUTO) 0.4 (0.2-0.8); MONOCYTES % 7.4 % (4.4-11.3); NEUTROPHILS # (AUTO) 2.2 (2.1-6.9); NEUTROPHILS % 40.2 % (38.7-80.0); PLATELET COUNT 219 x10e3/uL (140-360); RED BLOOD COUNT 4.62 x10e6/uL (3.6-5.1); RED CELL DISTRIBUTION WIDTH 12.5 % (11.7-14.4); WHITE BLOOD COUNT 5.54 x10e3/uL (4.8-10.8)
[2023-10-11] MEDS: ACETAMINOPHEN 325 MG TAB PO STA (18:15)
[2023-10-11] MEDS ORDERED: ACETAMINOPHEN 325 MG TAB ONE (18:16)
[2023-10-11] MEDS ORDERED: SODIUM CHLORIDE 0.9% 1000ML 1,000 ML ONE ×2 (18:16→18:20)
[2023-10-11] MEDS: SODIUM CHLORIDE 0.9% 1000ML 2,000 ML IV SCH (18:17)
[2023-10-11 18:18] LABS: ALANINE AMINOTRANSFERASE 8 IU/L (0-55); ALBUMIN 4.2 g/dL (3.5-5.0); ALBUMIN/GLOBULIN RATIO 1.5 (0.8-2.0); ALKALINE PHOSPHATASE 58 IU/L (40-150); ANION GAP 17.1 mmol/L (8-16); BILIRUBIN,TOTAL 0.3 mg/dL (0.2-1.2); BLOOD UREA NITROGEN 11 mg/dL (7-26); BUN/CREATININE RATIO 13 (6-25); CALCIUM 9.7 mg/dL (8.4-10.2); CARBON DIOXIDE 25 mmol/L (22-29); CHLORIDE 104 mmol/L (98-107); CREATINE KINASE 36 IU/L (29-168); CREATININE, SERUM 0.86 mg/dL (0.57-1.11); EST GLOMERULAR FILTRATION RATE 80 ML/MIN (>=60); GLUCOSE 85 mg/dL (74-118); POTASSIUM 4.1 mmol/L (3.5-5.1); SODIUM 142 mmol/L (136-145)
[2023-10-11 18:24] LABS: TROPONIN I < 0.001 ng/mL (0-0.300)
[2023-10-11] MEDS ORDERED: Sodium Chloride 0.9% 50ML Bag ONE (18:27)
[2023-10-11] MEDS ORDERED: IOPAMIDOL 370 MG/ML 100 ML INFUS..BTL INJ ONE ×2 (18:27)
[2023-10-11 20:12] VITALS: BP 102/67; PULSE 80; RESP 20; O2SAT 99
== END 2023-10-11 20:20 | disposition home or self-care (01) ==
LOC: ER 17:13
DX: R55 Syncope and collapse (principal); R07.9 Chest pain, unspecified; N28.1 Cyst of kidney, acquired; I10 Essential (primary) hypertension; E78.5 Hyperlipidemia, unspecified; J44.9 Chronic obstructive pulmonary disease, unspecified; I25.10 Atherosclerotic heart disease of native coronary artery without angina pectoris; G40.909 Epilepsy, unspecified, not intractable, without status epilepticus; F41.9 Anxiety disorder, unspecified; Z11.52 Encounter for screening for COVID-19; R94.31 Abnormal electrocardiogram [ECG] [EKG]; F17.210 Nicotine dependence, cigarettes, uncomplicated; Z87.820 Personal history of traumatic brain injury
CPT/HCPCS: 36415; 71260; 80053; 82550; 83690; 83880; 84484; 85025; 93005; 99284; J7030; Q9967; U0002